=== PATIENT | male | born 1940 | race Caucasian/White ===

== ENCOUNTER → 2017-01-21 | Outpatient (REF) | payer OTHER ==
[~2017-01-21] MED LIST: ACET500T37 PO; ALDA25TA2 PO; AMLO5TAB2 PO; AVOID; DIGO0.12 PO; DIGO25TA PO; DOCU10ELUD PO; FOLI1TAB2 PO; FOLI1TAB86 PO; FURO20TA2 PO; LASI40TA PO; LISI-538 PO; LISI10TA4 PO; LOPR100T PO; LOPR1TAB6 PO; METO100T PO; METO50TA2 PO; NO HOME MEDS; OXAZ15CA PO; PERCOCET PO; Thiamine Hcl PO; VITA100T2 PO; VITMTA PO; XARE15TA PO; ZEST20TA8 PO; [UNRECOGNIZED DRUG - REMARK]; [UNRECOGNIZED DRUG - REMARK]
== END ==
LOC: M LAB REF 13:44
PROVIDERS: ATTEND Internal Medicine
DX: I48.2 Chronic atrial fibrillation (principal); I50.40 Unspecified combined systolic (congestive) and diastolic (congestive) heart failure

== ENCOUNTER 2017-05-18 12:33 | Inpatient (IN) | payer OTHER, MEDICARE ==
[~2017-05-18] VITALS: Ht 195.6 cm; Wt 102.5 kg
[~2017-05-18 12:33] MED LIST changes: +ACET-683 PO; -ACET500T37 PO; -FOLI1TAB2 PO; +FOLI1TAB4 PO; +FOLIC ACID 1 MG TAB PO SCH; -METO100T PO; +METO100T5 PO; -METO50TA2 PO; +METO50TA7 PO; +MULTIVITAMINS/MINERALS THERAP 1 TAB PO SCH; +THIAMINE 100 MG TAB PO SCH
[2017-05-18] MEDS ORDERED: NS 1,000 ML IV SCH (13:17)
[2017-05-18] MEDS ORDERED: METOPROLOL 5 MG/5 ML VIAL As Ordered ONE (13:17)
[2017-05-18] MEDS: METOPROLOL 5 MG/5 ML VIAL IV SCH ×3 (13:20→13:30)
[2017-05-18 13:38] LABS: BASO % 0.2 % (0.0-1.0); EOS # 0.1 K/mm3 (0.0-0.50); EOS % 0.7 % (0.0-3.0); LARGE UNSTAINED CELL # 0.2 K/mm3 (0.0-0.4); LARGE UNSTAINED CELL % 1.9 % (0.0-4.0); LYMPH # 0.8 K/mm3 (1.5-4.5); LYMPH % 5.6 % (24.0-44.0); MEAN CORPUSCULAR HEMOGLOBIN 33.1 pg (27.0-33.0); MEAN CORPUSCULAR HGB CONC 33.9 g/dl (32.0-36.5); MEAN CORPUSCULAR VOLUME 97.8 fl (80.0-96.0); MONO # 0.9 K/mm3 (0.0-0.8); MONO % 7.8 % (0.0-5.0); NEUTROPHILS # 9.3 K/mm3 (1.8-7.7); NEUTROPHILS % 83.8 % (36.0-66.0); PLATELET COUNT, AUTOMATED 151 k/mm3 (150-450); WHITE BLOOD COUNT 11.1 K/mm3 (4.0-10.0)
[2017-05-18 13:42] LABS: INR 1.4
[2017-05-18 13:56] LABS: ALBUMIN 3.5 GM/DL (3.2-5.2); ALBUMIN/GLOBULIN RATIO 0.81 (1.00-1.93); ALT/SGPT 34 U/L (12-78); ANION GAP 10 MEQ/L (8-16); AST/SGOT 62 U/L (15-37); BILIRUBIN,DIRECT 0.8 MG/DL (0.0-0.2); BILIRUBIN,TOTAL 2.1 MG/DL (0.2-1.0); BLOOD UREA NITROGEN 48 MG/DL (7-18); CARBON DIOXIDE LEVEL 26 MEQ/L (21-32); CHLORIDE LEVEL 109 MEQ/L (98-107); CREATININE FOR GFR 1.98 MG/DL (0.70-1.30); GLOMERULAR FILTRATION RATE 35.3 (>42); GLUCOSE, FASTING 118 MG/DL (83-110); POTASSIUM SERUM 4.2 MEQ/L (3.5-5.1); SODIUM LEVEL 145 MEQ/L (136-145); TOTAL PROTEIN 7.8 GM/DL (6.4-8.2)
[2017-05-18 14:06] LABS: METHADONE URINE NEGATIVE (NEGATIVE)
[2017-05-18 14:10] LABS: ALKALINE PHOSPHATASE 95 U/L (45-117); DIGOXIN LEVEL 0.2 NG/ML (0.5-2.0)
[2017-05-18] MEDS ORDERED: NS 1,000 ML IV ONE (14:30)
[2017-05-18] MEDS ORDERED: DIGOXIN 0.125 MG TAB PO ONE (14:45)
[2017-05-18] MEDS ORDERED: METOPROLOL TARTRATE 100 MG TAB PO ONE (14:45)
--- NOTE | 2017-05-18 14:51 | REP ---
REASON: Trauma. COMPARISON: 10/31/2016 There is no change from the prior exam. There is extensive deep white matter ischemic disease seen with deep white matter, particularly periventricular lucency, status quo. There is no evidence of an acute intracranial hemorrhagic or nonhemorrhagic event. There is no evidence of a mass or mass effect. 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 There is ventricular and sulcal dilatations status quo. There is no evidence of a small fracture. There is a fracture of the nasal arch and there is a fracture of the anterior wall of the right maxillary sinus with a right maxillary sinus air fluid level. IMPRESSION: 1. Chronic brain changes as described above, stable from 10/31/2016. 2. Facial bone fractures as described above which will be further discussed in the maxillofacial CT report obtained today as well. Signed by Terrence Cool DO 05/18/2017 04:02 P
--- NOTE | 2017-05-18 14:56 | REP ---
REASON: Trauma. PRIORS: None. The anterior wall of the right maxillary sinus is fractured. There is overlying soft tissue swelling. There is a right maxillary sinus air fluid level. There is leftward nasal septal deviation. IMPRESSION: 1. Small fracture of the anterior wall of the right maxillary sinus with an air-fluid level. This should be correlated clinically with followup. 2. Other findings consistent with chronic changes as described above. Signed by Terrence Cool DO 05/18/2017 04:02 P
--- NOTE | 2017-05-18 15:06 | REP ---
REASON: Pain in the neck after trauma. COMPARISON: None. Vertebral body height and alignment is within normal limits. There is no evidence of a cervical spine fracture. There is degenerative facet and uncovertebral joint change present at every level bilaterally. There is posterior osteophytic ridging seen C5-6 and C6-7. The facet joints are well aligned bilaterally. There is no abnormal parastomal soft tissue swelling. IMPRESSION: Chronic changes as described above. No evidence of an acute fracture. Signed by Terrence Cool DO 05/18/2017 04:02 P
--- NOTE | 2017-05-18 15:08 | REP ---
CHEST, AP LATERAL: 05/18/2017 COMPARISON: Portable chest 04/22/2016, 09/13/2015. CLINICAL HISTORY: Trauma. FINDINGS: Heart size is mildly enlarged with some left atrial and ventricular enlargement even allowing for supine technique. The aorta is mildly tortuous. Its contours are smooth and unchanged. No gross aneurysm. Airway midline. Degenerative change is seen throughout the spine. There is no dense consolidation or evidence for layering effusion, dana edema or mass. IMPRESSION: 1. Cardiomegaly with left atrial and ventricular enlargement but no pulmonary edema or definite effusion. 2. Tortuous calcified aorta without aneurysm. 3. Degenerative changes in the spine and shoulders. Signed by Kendrick Mckee MD 05/18/2017 03:57 P
--- NOTE | 2017-05-18 15:12 | REP ---
AP PELVIS: 05/18/2017 CLINICAL HISTORY: Trauma. FINDINGS. Single view of the pelvis shows pelvic ring grossly intact. SI joints symmetric and normal without erosion or narrowing. Sacral ala and foramina symmetric and normal. Iliac wings intact. Hip joint spaces show slight narrowing on the right compared to left but no large osteophytes or destructive lesion. Pubic rami, symphysis pubis and the bony hips without destructive lesion, fracture or other acute finding. There does appear to be a Gambino catheter extending into the prostatic urethra and possibly the bladder but the catheter tip is obscured by symphysis pubis. Vascular calcifications in the iliac vessels and pelvic phleboliths noted on the left. IMPRESSION: 1. No visible or displaced fracture. There are vascular calcifications of the iliac and femoral arteries as well as a left-sided phlebolith. 2. Gambino catheter is seen in the penile and prostatic urethra, its tip not visible, likely obscured by the symphysis pubis to the left of midline. Signed by Kendrick Mckee MD 05/18/2017 03:57 P
[2017-05-18] MEDS ORDERED: CEPHALEXIN 500 MG CAP PO ONE (15:15)
[2017-05-18] MEDS ORDERED: VITMTA PO (15:18)
[2017-05-18] MEDS ORDERED: VITA100T2 PO (15:18)
[2017-05-18] MEDS ORDERED: LISI40TAB PO (15:21)
[2017-05-18] MEDS ORDERED: MORPHINE 2 MG/ML 1ML SYRINGE IV PRN (16:00)
[2017-05-18] MEDS: NS 1,000 ML IV SCH (16:00)
[2017-05-18] MEDS ORDERED: ONDANSETRON 4MG/2ML VIAL (J2405) IV PRN (16:00)
[2017-05-18] MEDS ORDERED: PERCOCET 5MG/325MG TAB PO PRN (16:00)
[2017-05-18] MEDS ORDERED: BISACODYL 5 MG TAB PO PRN (16:00)
[2017-05-18] MEDS ORDERED: LORazepam 2 MG/ML VIAL (J2060) IV PRN (16:15)
[2017-05-18] MEDS ORDERED: METOPROLOL 5 MG/5 ML VIAL IV STA (16:24)
[2017-05-18] MEDS ORDERED: SODIUM CHLORIDE 0.9% 1000 ML IV ONE (16:30)
[2017-05-18] MEDS ORDERED: DIGOXIN 0.25 MG TAB PO STA (17:02)
--- NOTE | 2017-05-18 17:58 | ECGEPIP ---
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
[2017-05-18] MEDS ORDERED: MULTIVITAMIN -ADULT INJECTION 10 ML, THIAMINE INJection 100 MG, FOLIC ACID 1 MG in NS 1... IV ONE (18:00)
[2017-05-18] MEDS: CYANOCOBALAMIN 500 MCG TAB PO SCH (18:33)
[2017-05-18] MEDS: OXAZEPAM 10 MG CAP PO SCH ×2 (18:34→21:46)
[2017-05-18] MEDS: RIVAROXABAN 15 MG TAB (XARELTO) PO SCH (18:34)
[2017-05-18 18:39] VITALS: BP 143/77
--- NOTE | 2017-05-18 19:59 | HPE ---
DATE OF ADMISSION: 05/18/2017 PRIMARY CARE PROVIDER: The patient does not know who is primary care provider is. However, based on previous documentation, it is Dr. Root. CHIEF COMPLAINT: Atrial fibrillation with rapid ventricular response (RVR), Rhabdomyolysis HISTORY OF PRESENT ILLNESS: Mr. Espitia is a 76-year-old male with multiple past medical history who was transferred to the emergency room (ER) due to altered mental status. At the time of interview, the patient was not oriented to time, place or person. The patient has several bruises on his body, including his right shoulder, right chest and right lower extremity. The patient expressed that these bruises were caused by falling from the bed two days ago. The patient also has swelling of the right maxillary area as well as bruises in the right maxillary/temporal area which he expressed that this is caused by the rubber ball when he was playing with his son. The patient expressed that he feels safe at home and he denies any violence against him. The patient also expressed that he was working in his yard and he did not keep himself hydrated. The patient expressed that he drinks alcohol regularly and the last drink was last night and he had about six beers which he usually drinks everyday. The patient expressed that his cousin helps him with his medication. However, he has not taken his medication past week. The patient denies vision changes. However, the patient expressed that his left eye is weaker compared to the right however he has not been seen by [facility]. The patient denies fever, chills, or night sweats. The patient also denies lightheadedness, dizziness, syncope, or not being able to control his bowel or bladder. The patient denies sick contact, cough, shortness of breath, or dysuria. Due to altered mental status, the patient was not able to provide detailed history of present illness. PAST MEDICAL HISTORY: 1. Hypertension. 2. Atrial fibrillation. 3. Alcoholism. PAST SURGICAL HISTORY: Skin graft of the left ankle. SOCIAL HISTORY: The patient lives at home with his . The patient quit smoking 30 years ago. However, before that, the patient used to smoke about half a pack for 20 years. The patient denies illicit drug use. The patient has traveled to [place] several years ago. The patient has one dog. The patient drinks about a six-pack per day and his last drink was yesterday. FAMILY HISTORY: The patient has three children, two daughters and one son who are healthy for their age. The patient had four sisters and three brothers. One of his sisters . His older sister and older brother due to old age. The patient's parents also due to old age. The patient denies having any disease that runs in his family. HOME MEDICATIONS: - acetaminophen 1000 mg by mouth as needed for pain - digoxin 0.125 mg by mouth daily - folic acid 1 mg by mouth daily - furosemide 20 mg by mouth twice a day - lisinopril 40 mg by mouth daily - metoprolol tartrate 150 mg by mouth twice a day - multivitamin one tablet by mouth daily - Xarelto 50 mg by mouth daily - vitamin B1 100 mg by mouth daily REVIEW OF SYSTEMS: GENERAL: The patient denies fever, chills, night sweats, weight loss, weight gain. HEENT: The patient denies acute vision or hearing changes. The patient also denies headache, sinusitis, or problems with chewing food. NECK: The patient denies lumps, bumps, decreased range of motion of his neck. HEART: The patient denies palpitations, racing or skipping heart beat, chest pain. LUNGS: The patient denies shortness of breath, coughing. ABDOMEN: The patient denies abdominal pain, nausea, vomiting, diarrhea, constipations, melena, hematochezia, hemoptysis. NEUROLOGIC: The patient denies history of transient ischemic attack (TIA), seizure, or seizure-type activities. PHYSICAL EXAMINATION: VITAL SIGNS: Temperature 97.9, pulse 177, respiratory rate 20, blood pressure 143/92, pulse oximetry 93% on room air. GENERAL APPEARANCE: The patient was lying in bed, in no acute distress. The patient was awake but not oriented to time, place and person. HEENT: The patient has swelling of the right side of his face as well as bruises in the temporomaxillary area. Also, the patient has purulent discharge from his eyes bilaterally. Pupils are equal and reactive to light. Oral mucosa is moist. NECK: Soft, supple. No lymphadenopathy. No thyromegaly. HEART: Irregularly, irregular. LUNGS: The patient has scattered rhonchi at the base of the lungs. Good air movement. ABDOMEN: Soft, no tenderness to palpation. Positive bowel sounds in all quadrants. The patient has possible hepatomegaly. EXTREMITIES: The patient has mild lower extremity edema, +2 pulses in both lower extremities. The patient has decreased range of motion and strength in both lower extremities (4/5). However, at this time, I have no information about his baseline. NEUROLOGIC: Cranial nerves II-XII grossly intact. No focal deficits. No asterixis. LABORATORY DATA: White blood cells 11.1, red blood cells 5.28, hemoglobin 17.5, hematocrit 51.7, MCV 97.8, MCH 33.1, MCHC 33.9, RDW 14, platelet count 151, neutrophil percentage 83.8, lymphocyte percentage 5.6, monocyte percentage 7.8, eosinophil percentage 0.7, basophil percentage 0.2, leukocyte percentage 1.9. PT 17.3, INR 1.4, aPTT 28.7. Sodium 145, potassium 4.2, chloride 109, carbon dioxide 26, anion gap 10, BUN 48 , creatinine 1.98, glomerular filtration rate 35.3, fasting glucose 118, lactic acid 3, total bilirubin 2.1, direct bilirubin 0.8, AST 6, ALT 34, alkaline phosphatase 95, ammonia 15, total creatine kinase 948, CK-MB 4.5, CK-MB relative index 0.47, troponin I 0.07, total protein 7.8, albumin 3.5, TSH 0.973. UA: Urine color crystal, urine appearance hazy, urine pH 5, urine specific gravity 1.030, urine protein 2+, urine glucose negative, urine ketones trace, urine blood 1+, urine nitrite negative, urine bilirubin negative, urine urobilinogen 4, urine leukocyte esterase negative, urine white blood cells 2, urine red blood cells 1, urine hyaline casts 0, urine bacteria negative, urine squamous epithelial cells 0, urine mucus small. Toxicology: Digoxin level 0.2, salicylate less than 1.7, urine opiate negative, urine methadone negative, acetaminophen less than 2, urine barbiturates negative , urine phencyclidine negative, urine acetaminophen screen negative, urine benzodiazepines negative, urine cocaine metabolites negative, urine cannabinoid screen negative, ethyl alcohol 0.003. Urine culture is pending. IMAGING STUDIES: Pelvic complete indicated no visible or displaced fracture. There are vascular calcifications of the iliac and femoral arteries as well as left side phlebolith. Gambino catheter is seen in the penile and prostatic ureter, its tip not visible, likely obstructed by the symphysis pubis to the left of the midline. CT maxillofacial without contrast which indicated a small fracture of the anterior wall of the right maxillary sinus with an air-fluid level. However, other findings consistent with chronic changes. Head CT without contrast indicated chronic brain changes, facial bone fracture which was discussed in the maxillofacial CT report. Chest x-ray which indicated cardiomegaly with a left atrial and ventricle enlargement but no pulmonary edema of definite effusion. Tortuous calcified aorta without aneurysm. Degenerative changes in the spine and shoulders. CT of the cervical spine without contrast which indicated chronic changes. ASSESSMENT AND PLAN: 1. Atrial fibrillation with rapid ventricular response (RVR). this is a chronic issue however he is not compliant with his medications also could be secondary to hypovolemia due to alcoholism. At the emergency room (ER), the patient received digoxin 0.125 mg as well as metoprolol 5 mg IV every five minutes, three doses, as well as metoprolol 150 mg by mouth once. We will continue the patient on home dosage of Xarelto. Also, at this time due to the patient's low blood pressure and continuation of tachycardia, we gave another dose of digoxin 0.25 mg by mouth. We will admit the patient to the progressive care unit (PCU). We will continue to monitor the patient for any abnormal symptoms. Also, cardiac marker was negative on the first set. We will continue for two more sets every six hours. Also, EKG indicated atrial fibrillation with RVR. However, no new pathology was noticed. Tomorrow, the patient will be continued on the home medications which include Lopressor 150 mg twice a day by mouth as well as digoxin 0.125 mg by mouth daily. TSH is in normal level. Also we have ordered echo and result is pending. 2. Fracture of anterior wall of the right maxillary sinus. CT of the maxillofacial without contrast indicated a small fracture of the anterior wall of the right maxillary sinus with air-fluid level. I have contacted Dr. Quintana. Based on his CT, I did not notice any displacement fracture. Dr. Quintana expressed that the patient can be followed as an outpatient. However, at this time, I have started the patient on Keflex 500 twice a day. Also, I have collected a blood culture. However, the result is pending at this time. We will continue to monitor the patient for any abnormal symptoms. 3. Multiple skin bruises. This is possibly secondary to fall versus crawling on the carpet. The patient expressed that he feels safe at home and denies any violence toward him. We will perform wound care. 4. Possible bacterial conjunctivitis. The patient has purulent discharge from his eyes bilaterally. Therefore, I have started the patient on Neosporin Ophthalmic Solution two drops in each eye every four hours for seven days. 5. Rhabdomyolysis. This is possibly secondary to fall and stationary lifestyle. At this time, we have started the patient on IV fluid 100 mL per hour. However, the patient had received 1.5 liters of normal saline bolus. We will continue to monitor the patient for any abnormal symptoms. 6. Alcoholism. At this time, we have started the patient on Serax 10 mg by mouth three times a day as well as Ativan 1 mg every one hour as needed. Also, the patient is administered one banana bag and tomorrow the patient will be continued on thiamine and folic acid as well as B12. 7. Elevated lactic acid. This is possibly secondary to dehydration secondary to alcoholism, however, due to the possibility of infection, we have blood cultures and result is pending at this time however he is on Keflex. 8. Leukocytosis. This is possibly secondary to stress. The patient is afebrile. However, we have ordered a urinalysis (UA) which did not indicate the possibility of urinary tract infection (UTI). However, we have urine culture and the result is pending at this time. The patient is on Keflex at this time. 9. Transaminitis. The patient has elevated aspartate aminotransferase (AST) of 62. Also, the patient has elevated total bilirubin and direct bilirubin. This is possibly secondary to alcohol. I have ordered a liver ultrasound and the result is pending at this time. 10. Deep vein thrombosis (DVT) prophylaxis. The patient is on Xarelto. 11. Acute kidney injury. The patient is possibly pre-azotemia (hypovolemia) versus azotemia (medications including furosemide 20 mg by mouth twice a day, lisinopril 40 mg by mouth daily and Rhabdomyolysis). At this point , I have stopped furosemide and lisinopril. The patient is on IV fluid. We will continue monitoring the patient's renal function. My preceptor for this patient encounter was Dr. Daniel Liz. The preceptor was physically present in the building during the encounter and was fully available as needed. All aspects of the patient interview, examination, medical decision making process, and medical care plan development were reviewed and approved by the preceptor. The preceptor is aware and concurs with the plan as stated in the body of this note and will attest to such by his/her co-signature. Attending note: I have examined this patient independently and reviewed the chart and diagnostic studies. I have had a detailed discussion with the resident regarding the plan as outlined above. All aspects of the history and physical are reflective of our discussion. NIK
[2017-05-18 20:04] VITALS: BP 134/87
[2017-05-18] MEDS: NEOSPORIN OU SCH (21:43)
[2017-05-18] MEDS: METOPROLOL TART 50 MG TAB PO SCH (21:46)
[2017-05-18] MEDS: CEPHALEXIN 500 MG CAP PO SCH (21:46)
[2017-05-19] VITALS (7 sets, daily range): BP systolic 132–173; BP diastolic 64–96
[2017-05-19] MEDS: NEOSPORIN OU SCH ×6 (00:19→21:08)
[2017-05-19] MEDS: NS 1,000 ML IV SCH ×2 (02:00→06:00)
[2017-05-19 05:14] LABS: BASO % 0.2 % (0.0-1.0); EOS # 0.1 K/mm3 (0.0-0.50); EOS % 0.8 % (0.0-3.0); LARGE UNSTAINED CELL # 0.3 K/mm3 (0.0-0.4); LARGE UNSTAINED CELL % 3.1 % (0.0-4.0); LYMPH # 0.8 K/mm3 (1.5-4.5); LYMPH % 8.4 % (24.0-44.0); MEAN CORPUSCULAR HEMOGLOBIN 32.8 pg (27.0-33.0); MEAN CORPUSCULAR HGB CONC 33.2 g/dl (32.0-36.5); MONO # 0.9 K/mm3 (0.0-0.8); MONO % 9.1 % (0.0-5.0); NEUTROPHILS # 7.4 K/mm3 (1.8-7.7); NEUTROPHILS % 78.3 % (36.0-66.0); PLATELET COUNT, AUTOMATED 118 k/mm3 (150-450); RED CELL DISTRIBUTION WIDTH 13.8 % (11.5-14.5); WHITE BLOOD COUNT 9.5 K/mm3 (4.0-10.0)
[2017-05-19 05:32] LABS: ALBUMIN 2.5 GM/DL (3.2-5.2); ALBUMIN/GLOBULIN RATIO 0.69 (1.00-1.93); BILIRUBIN,TOTAL 1.4 MG/DL (0.2-1.0); CALCIUM LEVEL 8.8 MG/DL (8.8-10.2); CREATININE FOR GFR 1.59 MG/DL (0.70-1.30); GLOMERULAR FILTRATION RATE 45.4 (>42); MAGNESIUM LEVEL 2.2 MG/DL (1.8-2.4); POTASSIUM SERUM 4.2 MEQ/L (3.5-5.1); TOTAL PROTEIN 6.1 GM/DL (6.4-8.2)
[2017-05-19] MEDS: NS 0.45% 1,000 ML IV SCH ×2 (10:48→21:06)
[2017-05-19] MEDS: METOPROLOL TART 50 MG TAB PO SCH ×2 (10:49→21:07)
[2017-05-19] MEDS: RIVAROXABAN 15 MG TAB (XARELTO) PO SCH (10:49)
[2017-05-19] MEDS: OXAZEPAM 10 MG CAP PO SCH ×3 (10:49→21:00)
[2017-05-19] MEDS: DIGOXIN 0.125 MG TAB PO SCH (10:50)
[2017-05-19] MEDS: THIAMINE 100 MG TAB PO SCH (10:50)
[2017-05-19] MEDS: MULTIVITAMINS/MINERALS THERAP 1 TAB PO SCH (10:51)
[2017-05-19] MEDS: CYANOCOBALAMIN 500 MCG TAB PO SCH (10:51)
[2017-05-19] MEDS: FOLIC ACID 1 MG TAB PO SCH (10:51)
[2017-05-19] MEDS: CEPHALEXIN 500 MG CAP PO SCH ×2 (10:51→21:07)
--- NOTE | 2017-05-19 13:07 | IPNPDOC ---
Text Note Date of Service The patient was seen on 05/19/17. NOTE Subjective: Patient is a 76 year old male with a PMHx of HTN, A. fib, and alcoholism who presented to the ER with altered mental status. Patient noted that he had fallen out of bed a few days ago. He was noted to have several bruises on the right side of his face and body. Patient notes that he does not know how long he was down for. Upon arrival in the ER he was found to have KATHERINE, rhabdomyolysis, and a fracture of the right maxillary sinus with air fluid levels. Patient was seen and examined at the bedside. Currently he notes that he is still having pain on the side of his face. Objective: Vitals (See below) General: Lying in bed, no acute distress, comfortable, AAOx3 HEENT: Trauma to the right facial wall, Right eye conjunctivitis CVS: +S1S2 Lungs: Fair air entry b/l, -w/r/r Abdomen: Soft, ND, NT, +BSx4 Extremities: +PPx4, - Edema, - Calf tenderness Assessment and plan: 1. Atrial fibrillation with RVR - likely 2/2 non-compliance with medications - Patient was found down for a few days, was unable to take medications - s/p Digoxin 0.125mg and Metoprolol 5mg IV q5min x 3 doses, s/p Metoprolol 150mg PO x 1 - TSH normal - ECHO pending - c/w Metoprolol 150 PO BID, Digoxin 0.125mg QD - c/w Xarelto 3. Anterior right maxillary sinus fracture - CT Maxillofacial 05/18: acute fracture with air fluid levels - Case was discussed with ENT; no further intervention is required as per Dr. Quintana - c/w Cephalexin PO (Day #2) - Will follow up with ENT as an outpatient 4. Right eye conjunctivitis - c/w Eye drops 5. Rhabdomyolysis - Elevated CK - Trending down - c/w IV fluid hydration 6. KATHERINE on CKD3 - Cr baseline of 1.2 - Cr has been trending down - c/w IV fluid hydration 7. Alcoholism - s/p Banana bag - c/w Folate, Thiamine and Multivitamin - c/w Serax 8. Leukocytosis - likely reactive - cultures (blood and urine) pending - UA negative - resolving 9. Elevated liver enzymes; likely 2/2 rhabdomyolysis - US liver pending - will follow for now 10. DVT prophylaxis - c/w full anticoagulation for a. fib (Xarelto) VS,Fishbone, I+O VS, Fishbone, I+O Laboratory Tests 05/18/17 12:57 Red Blood Count 5.28, Mean Corpuscular Volume 97.8 H, Mean Corpuscular Hemoglobin 33.1 H, Mean Corpuscular Hemoglobin Concent 33.9, Red Cell Distribution Width 14.0, Neutrophils (%) (Auto) 83.8 H, Lymphocytes (%) (Auto) 5.6 L, Monocytes (%) (Auto) 7.8 H, Eosinophils (%) (Auto) 0.7, Basophils (%) ( Auto) 0.2, Neutrophils # (Auto) 9.3 H, Lymphocytes # (Auto) 0.8 L, Monocytes # ( Auto) 0.9 H, Eosinophils # (Auto) 0.1, Basophils # (Auto) 0.0 05/19/17 04:55 Red Blood Count 4.58, Mean Corpuscular Volume 99.0 H, Mean Corpuscular Hemoglobin 32.8, Mean Corpuscular Hemoglobin Concent 33.2, Red Cell Distribution Width 13.8, Neutrophils (%) (Auto) 78.3 H, Lymphocytes (%) (Auto) 8.4 L, Monocytes (%) (Auto) 9.1 H, Eosinophils (%) (Auto) 0.8, Basophils (%) ( Auto) 0.2, Neutrophils # (Auto) 7.4, Lymphocytes # (Auto) 0.8 L, Monocytes # ( Auto) 0.9 H, Eosinophils # (Auto) 0.1, Basophils # (Auto) 0.0, Calcium Level 8.8 , Aspartate Amino Transf (AST/SGOT) 61 H, Alanine Aminotransferase (ALT/SGPT) 39 , Alkaline Phosphatase 81, Total Bilirubin 1.4 H, Total Protein 6.1 #L, Albumin 2.5 #L Vital Signs Date Time Temp Pulse Resp B/P (MAP) Pulse Ox O2 Delivery O2 Flow Rate FiO2 05/19/17 12:00 98.3 120 20 173/96 (121) 97 Room Air I&O- Last 24 Hours up to 6 AM 05/19/17 06:00 Intake Total 3040 ml Output Total 325 ml Balance 2715 ml CARDOZO,VIJESH MD May 19, 2017 13:07
[2017-05-19 13:42] LABS: ALBUMIN 2.7 GM/DL (3.2-5.2); ALBUMIN/GLOBULIN RATIO 0.68 (1.00-1.93); BILIRUBIN,TOTAL 1.4 MG/DL (0.2-1.0); CREATININE FOR GFR 1.53 MG/DL (0.70-1.30); GLOMERULAR FILTRATION RATE 47.5 (>42); POTASSIUM SERUM 4.2 MEQ/L (3.5-5.1); TOTAL PROTEIN 6.7 GM/DL (6.4-8.2)
[2017-05-19] MEDS: amLODIPine 5 MG TAB PO SCH (14:59)
--- NOTE | 2017-05-19 18:58 | REP ---
LIVER ULTRASOUND: 05/19/2017: Clinical history: Elevated liver function tests. Alcoholism. No prior study. Findings: Sonographic evaluation of the liver shows slightly hyperechogenic with coarse echotexture suggesting fatty infiltration and chronic liver disease. No visible hepatic mass, intrahepatic biliary dilatation, cyst or adjacent ascites. The gallbladder is partially contracted. Wall thickness is 4.6 mm. Stone is within that gallbladder. I cannot see definite pericholecystic fluid. Common duct is 4.6 mm proximally and 5.5 mm and other measurement a little more distally in the simone hepatis. The pancreatic head shows no dilated duct or mass. Only a portion of the neck and head, body are seen. Tail obscured due to gas shadowing. The right kidney is 11 x 5.3 x 5.9 cm without hydronephrosis, stone or mass. Impression: 1. Chronic liver disease suggested with the hyperechogenic parenchyma suggesting fatty infiltration along with coarse echotexture and slightly lobulated margins suggesting chronic liver disease. 2. No ascites, focal hepatic mass, intrahepatic biliary dilatation or cyst. 3. Contracted gallbladder with a stone visible. Wall thickness of 4.6 mm. No pericholecystic fluid. 4. Pancreas limited evaluation due to gas shadowing. Right kidney unremarkable. The common duct 5.5 mm and normal without filling defect. Signed by Kendrick Mckee MD 05/19/2017 08:32 P
[2017-05-20] MEDS: NEOSPORIN OU SCH ×6 (02:15→20:51)
[2017-05-20 04:00] VITALS: BP 158/98
[2017-05-20 05:11] LABS: BASO # 0.1 K/mm3 (0.0-0.2); EOS # 0.2 K/mm3 (0.0-0.50); LARGE UNSTAINED CELL # 0.4 K/mm3 (0.0-0.4); LARGE UNSTAINED CELL % 4.2 % (0.0-4.0); LYMPH % 10.2 % (24.0-44.0); MEAN CORPUSCULAR HEMOGLOBIN 33.6 pg (27.0-33.0); MEAN CORPUSCULAR VOLUME 101.7 fl (80.0-96.0); MONO # 1.1 K/mm3 (0.0-0.8); MONO % 11.3 % (0.0-5.0); NEUTROPHILS # 6.8 K/mm3 (1.8-7.7); NEUTROPHILS % 71.3 % (36.0-66.0); RED CELL DISTRIBUTION WIDTH 13.7 % (11.5-14.5); WHITE BLOOD COUNT 9.6 K/mm3 (4.0-10.0)
[2017-05-20 05:13] LABS: PLATELET COUNT, AUTOMATED 91 k/mm3 (150-450)
[2017-05-20 06:15] LABS: ALBUMIN 2.5 GM/DL (3.2-5.2); ALBUMIN/GLOBULIN RATIO 0.76 (1.00-1.93); CREATININE FOR GFR 1.29 MG/DL (0.70-1.30); GLOMERULAR FILTRATION RATE 57.8 (>42); MAGNESIUM LEVEL 2.3 MG/DL (1.8-2.4); POTASSIUM SERUM 4.2 MEQ/L (3.5-5.1); TOTAL PROTEIN 5.8 GM/DL (6.4-8.2)
[2017-05-20 08:00] VITALS: BP 169/86
[2017-05-20] MEDS ORDERED: OXAZEPAM 10 MG CAP PO PRN (08:15)
[2017-05-20] MEDS: METOPROLOL TART 50 MG TAB PO SCH ×2 (08:20→20:50)
[2017-05-20] MEDS: MULTIVITAMINS/MINERALS THERAP 1 TAB PO SCH (08:21)
[2017-05-20] MEDS: CYANOCOBALAMIN 500 MCG TAB PO SCH (08:21)
[2017-05-20] MEDS: RIVAROXABAN 15 MG TAB (XARELTO) PO SCH (08:21)
[2017-05-20] MEDS: DIGOXIN 0.125 MG TAB PO SCH (08:22)
[2017-05-20] MEDS: amLODIPine 5 MG TAB PO SCH (08:22)
[2017-05-20] MEDS: CEPHALEXIN 500 MG CAP PO SCH ×2 (08:22→20:49)
[2017-05-20] MEDS: THIAMINE 100 MG TAB PO SCH (08:22)
[2017-05-20] MEDS: FOLIC ACID 1 MG TAB PO SCH (08:22)
[2017-05-20 12:00] VITALS: BP 158/60
--- NOTE | 2017-05-20 13:22 | IPNPDOC ---
Text Note Date of Service The patient was seen on 05/20/17. NOTE Subjective: Patient is a 76 year old male with a PMHx of HTN, A. fib, and alcoholism who presented to the ER with altered mental status. Patient noted that he had fallen out of bed a few days ago. He was noted to have several bruises on the right side of his face and body. Patient notes that he does not know how long he was down for. Upon arrival in the ER he was found to have KATHERINE, rhabdomyolysis, and a fracture of the right maxillary sinus with air fluid levels. Patient was seen and examined at the bedside. He notes that he is feeling a little better, does not feel as dehydrated. Notes that he will continue to try with physical therapy. Objective: Vitals (See below) General: Lying in bed, no acute distress, comfortable, AAOx3 HEENT: Trauma to the right facial wall, Right eye conjunctivitis CVS: +S1S2 Lungs: Fair air entry b/l, -w/r/r Abdomen: Soft, ND, NT, +BSx4 Extremities: +PPx4, - Edema, - Calf tenderness Assessment and plan: 1. Atrial fibrillation with RVR - likely 2/2 non-compliance with medications - Patient was found down for a few days, was unable to take medications - Denies any symptoms of palpitations or chest pain - Currently his heart rate is adequately controlled - s/p Digoxin 0.125mg and Metoprolol 5mg IV q5min x 3 doses, s/p Metoprolol 150mg PO x 1 - TSH normal - ECHO pending - c/w Digoxin 0.125mg QD; will increase Metoprolol 150 PO BID to 175 PO BID - c/w Xarelto 3. Anterior right maxillary sinus fracture - CT Maxillofacial 05/18: acute fracture with air fluid levels - s/p Leukocytosis - Case was discussed with ENT; no further intervention is required as per Dr. Quintana - c/w Cephalexin PO (Day #3) - Will follow up with ENT as an outpatient 4. Right eye conjunctivitis - c/w Eye drops 5. Rhabdomyolysis - Elevated CK has trended down and normalized - c/w IV fluid hydration 6. KATHERINE on CKD3 - Cr baseline of 1.2 - Cr has been trending down and is approaching baseline, currently at 1.29 - c/w IV fluid hydration 7. Alcoholism - s/p Banana bag - c/w Folate, Thiamine and Multivitamin - c/w Serax PRN 8. s/p Leukocytosis - likely reactive - cultures (blood and urine) pending - UA negative 9. Elevated liver enzymes; likely 2/2 rhabdomyolysis, possibly 2/2 fatty liver disease - US liver reveals fatty infiltrate - Enzymes currently trending down 10. DVT prophylaxis - c/w full anticoagulation for a. fib (Xarelto) Disposition: - Will continue with physical therapy until cleared for discharge home / placement VS,Fishbone, I+O VS, Fishbone, I+O Laboratory Tests 05/20/17 04:53 Red Blood Count 4.62, Mean Corpuscular Volume 101.7 H, Mean Corpuscular Hemoglobin 33.6 H, Mean Corpuscular Hemoglobin Concent 33.0, Red Cell Distribution Width 13.7, Neutrophils (%) (Auto) 71.3 H, Lymphocytes (%) (Auto) 10.2 L, Monocytes (%) (Auto) 11.3 H, Eosinophils (%) (Auto) 2.0, Basophils (%) ( Auto) 1.0, Neutrophils # (Auto) 6.8, Lymphocytes # (Auto) 1.0 L, Monocytes # ( Auto) 1.1 H, Eosinophils # (Auto) 0.2, Basophils # (Auto) 0.1, Calcium Level 8.0 L, Aspartate Amino Transf (AST/SGOT) 44 H, Alanine Aminotransferase (ALT/ SGPT) 34, Total Creatine Kinase 301, Alkaline Phosphatase 86, Total Bilirubin 1.0, Total Protein 5.8 L, Albumin 2.5 L Vital Signs Date Time Temp Pulse Resp B/P (MAP) Pulse Ox O2 Delivery O2 Flow Rate FiO2 05/20/17 12:00 97.0 82 18 158/60 (92) 98 Room Air I&O- Last 24 Hours up to 6 AM 05/20/17 06:00 Intake Total 4955 ml Output Total 1450 ml Balance 3505 ml TAL CARDOZO MD May 20, 2017 13:22
[2017-05-20 15:30] VITALS: BP 147/56
[2017-05-20 19:50] VITALS: BP 157/79
--- NOTE | 2017-05-20 20:10 | ECHO ---
DATE OF PROCEDURE: 05/20/2017 REFERRING PHYSICIAN: Dr. Elpidio Lee INDICATION: Atrial fibrillation. The patient measures 66 inches and weighs 222 pounds. DIMENSIONS: IVS: 1.1 LV: 4.9 LA: 5.0 Aorta: 3.7 Ascending aorta: 4.0 RV: 3.9 FINDINGS: The study is of rather limited technical quality with very difficult visualization. Left ventricle is of normal size. I cannot reliably comment on left ventricular (LV) systolic function, but there is going to be at least mild and more likely moderate LV systolic dysfunction based on limited views. Right ventricle also appears dilated and hypokinetic. Both atria are severely enlarged. Aortic valve appears mildly sclerotic but mobility is preserved. Mitral and tricuspid valves appear grossly normal based on really limited views. Pulmonic valve was not well seen. No pericardial effusion is noted. Inferior vena cava is dilated, and there is no appreciable collapse with respiration indicative of likely very high central venous pressure. Aortic root and visualized segment of ascending aorta are dilated (maximum diameter 4.0 cm). Doppler interrogation reveals no aortic stenosis or insufficiency. There is also no significant mitral stenosis and trace insufficiency. There is mild tricuspid insufficiency. Calculated pulmonary artery pressure is at least at the mid 40s and possibly higher corresponding to moderate pulmonary hypertension. Evaluation of diastolic function is inconclusive due to underlying atrial fibrillation. CONCLUSIONS: 1. Study is of limited technical quality. 2. Normal LV size with probably at least mildly and more likely moderately reduced LV systolic function based on very limited views. 3. Dilated hypokinetic right ventricle. 4. Severe biatrial enlargement. 5. No significant valvular disease. 6. Elevated central venous pressure and at least moderate pulmonary hypertension. COMMENT: Subacute bacterial endocarditis (SBE) prophylaxis is not recommended. 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
[2017-05-20] MEDS: ACETAMINOPHEN TAB 650MG DOSE (2X325MG) PO PRN (20:51)
[2017-05-20 23:59] VITALS: BP 128/77
[2017-05-21] MEDS: NEOSPORIN OU SCH ×6 (01:00→21:24)
[2017-05-21 04:00] VITALS: BP 145/81
[2017-05-21 04:58] LABS: BASO % 0.3 % (0.0-1.0); EOS # 0.2 K/mm3 (0.0-0.50); EOS % 3.1 % (0.0-3.0); LARGE UNSTAINED CELL # 0.2 K/mm3 (0.0-0.4); LARGE UNSTAINED CELL % 2.7 % (0.0-4.0); LYMPH # 0.9 K/mm3 (1.5-4.5); LYMPH % 11.1 % (24.0-44.0); MEAN CORPUSCULAR HEMOGLOBIN 32.6 pg (27.0-33.0); MEAN CORPUSCULAR HGB CONC 33.5 g/dl (32.0-36.5); MEAN CORPUSCULAR VOLUME 97.1 fl (80.0-96.0); MONO # 0.7 K/mm3 (0.0-0.8); MONO % 9.9 % (0.0-5.0); NEUTROPHILS % 72.9 % (36.0-66.0); PLATELET COUNT, AUTOMATED 132 k/mm3 (150-450); RED CELL DISTRIBUTION WIDTH 13.9 % (11.5-14.5); WHITE BLOOD COUNT 6.8 K/mm3 (4.0-10.0)
[2017-05-21 05:10] LABS: ALBUMIN 2.1 GM/DL (3.2-5.2); ALKALINE PHOSPHATASE 74 U/L (45-117); ALT/SGPT 27 U/L (12-78); ANION GAP 8 MEQ/L (8-16); AST/SGOT 34 U/L (15-37); BILIRUBIN,TOTAL 0.9 MG/DL (0.2-1.0); BLOOD UREA NITROGEN 28 MG/DL (7-18); CALCIUM LEVEL 8.1 MG/DL (8.8-10.2); CARBON DIOXIDE LEVEL 25 MEQ/L (21-32); CHLORIDE LEVEL 107 MEQ/L (98-107); CREATININE FOR GFR 1.14 MG/DL (0.70-1.30); GLOMERULAR FILTRATION RATE > 60.0 (>42); GLUCOSE, FASTING 103 MG/DL (83-110); POTASSIUM SERUM 3.5 MEQ/L (3.5-5.1); SODIUM LEVEL 140 MEQ/L (136-145); TOTAL PROTEIN 5.6 GM/DL (6.4-8.2)
[2017-05-21 07:35] VITALS: BP 152/88
[2017-05-21] MEDS: METOPROLOL TART 50 MG TAB PO SCH ×2 (08:58→21:21)
[2017-05-21] MEDS: amLODIPine 5 MG TAB PO SCH (08:58)
[2017-05-21] MEDS: RIVAROXABAN 15 MG TAB (XARELTO) PO SCH (08:58)
[2017-05-21] MEDS: THIAMINE 100 MG TAB PO SCH (08:59)
[2017-05-21] MEDS: MULTIVITAMINS/MINERALS THERAP 1 TAB PO SCH (08:59)
[2017-05-21] MEDS: CEPHALEXIN 500 MG CAP PO SCH ×2 (08:59→21:21)
[2017-05-21] MEDS: FOLIC ACID 1 MG TAB PO SCH (08:59)
[2017-05-21] MEDS: CYANOCOBALAMIN 500 MCG TAB PO SCH (08:59)
[2017-05-21] MEDS: DIGOXIN 0.125 MG TAB PO SCH (08:59)
--- NOTE | 2017-05-21 11:13 | IPNPDOC ---
Text Note Date of Service The patient was seen on 05/21/17. NOTE Subjective: Patient is a 76 year old male with a PMHx of HTN, A. fib, and alcoholism who presented to the ER with altered mental status. Patient noted that he had fallen out of bed a few days ago. He was noted to have several bruises on the right side of his face and body. Patient notes that he does not know how long he was down for. Upon arrival in the ER he was found to have KATHERINE, rhabdomyolysis, and a fracture of the right maxillary sinus with air fluid levels. Patient was seen and examined at the bedside. Patient has no new complaints this morning. Will still work with physical therapy and occupational therapy, is requiring a lot of help. Objective: Vitals (See below) General: Lying in bed, no acute distress, comfortable, AAOx3 HEENT: Trauma to the right facial wall, Right eye conjunctivitis CVS: +S1S2 Lungs: Fair air entry b/l, -w/r/r Abdomen: Soft, ND, NT, +BSx4 Extremities: +PPx4, - Edema, - Calf tenderness Assessment and plan: 1. Atrial fibrillation with RVR - likely 2/2 non-compliance with medications - Patient was found down for a few days, was unable to take medications - Denies any symptoms of palpitations or chest pain - Currently his heart rate is adequately controlled - In ER received Digoxin 0.125mg, Metoprolol 5mg IV q5min x 3 doses, Metoprolol 150mg PO x 1 - TSH normal - ECHO pending - c/w Digoxin 0.125mg QD and Metoprolol 175 PO BID - c/w Xarelto 3. Anterior right maxillary sinus fracture - CT Maxillofacial 05/18: acute fracture with air fluid levels - s/p Leukocytosis - Case was discussed with ENT; no further intervention is required as per Dr. Quintana - c/w Cephalexin PO (Day #4) - Will arrange for ENT follow up as an outpatient 4. Right eye conjunctivitis - c/w Eye drops 5. s/p Rhabdomyolysis - CK has normalized - s/p IV fluid hydration 6. s/p KATHERINE on CKD3 - likely 2/2 pre-renal etiology - Cr baseline of 1.2 - Cr has been trending down and is approaching baseline, currently at 1.14 - s/p IV fluid hydration 7. Alcoholism - s/p Banana bag - c/w Folate, Thiamine and Multivitamin - c/w Serax PRN 8. s/p Leukocytosis - likely reactive - Blood and urine cultures (05/18) negative - UA negative 9. s/p Elevated liver enzymes; likely 2/2 rhabdomyolysis, possibly 2/2 fatty liver disease - US liver reveals fatty infiltrate 10. DVT prophylaxis - c/w full anticoagulation for a. fib (Xarelto) Disposition: - Will continue with physical therapy until cleared for discharge home / placement - May require placement for continued rehab VS,Fishbone, I+O VS, Fishbone, I+O Laboratory Tests 05/21/17 04:38 Red Blood Count 3.98 L, Mean Corpuscular Volume 97.1 H, Mean Corpuscular Hemoglobin 32.6, Mean Corpuscular Hemoglobin Concent 33.5, Red Cell Distribution Width 13.9, Neutrophils (%) (Auto) 72.9 H, Lymphocytes (%) (Auto) 11.1 L, Monocytes (%) (Auto) 9.9 H, Eosinophils (%) (Auto) 3.1 H, Basophils (%) (Auto) 0.3, Neutrophils # (Auto) 5.0, Lymphocytes # (Auto) 0.9 L, Monocytes # ( Auto) 0.7, Eosinophils # (Auto) 0.2, Basophils # (Auto) 0.0, Calcium Level 8.1 L , Aspartate Amino Transf (AST/SGOT) 34, Alanine Aminotransferase (ALT/SGPT) 27, Total Creatine Kinase 158, Alkaline Phosphatase 74, Total Bilirubin 0.9, Total Protein 5.6 L, Albumin 2.1 L Vital Signs Date Time Temp Pulse Resp B/P (MAP) Pulse Ox O2 Delivery O2 Flow Rate FiO2 05/21/17 08:59 82 05/21/17 08:58 152/88 05/21/17 07:35 96.7 20 98 Room Air I&O- Last 24 Hours up to 6 AM 05/21/17 06:00 Intake Total 2240 ml Output Total 1050 ml Balance 1190 ml TAL CARDOZO MD May 21, 2017 11:13
[2017-05-21 16:00] VITALS: BP 135/84
[2017-05-21 18:30] VITALS: BP 158/92
[2017-05-21 20:27] VITALS: BP 158/87
[2017-05-22] MEDS: NEOSPORIN OU SCH ×6 (00:51→20:32)
[2017-05-22 06:00] VITALS: BP 136/93
[2017-05-22 06:39] LABS: BASO % 0.3 % (0.0-1.0); EOS # 0.2 K/mm3 (0.0-0.50); EOS % 2.5 % (0.0-3.0); LARGE UNSTAINED CELL # 0.2 K/mm3 (0.0-0.4); LARGE UNSTAINED CELL % 2.5 % (0.0-4.0); MEAN CORPUSCULAR HEMOGLOBIN 33.2 pg (27.0-33.0); MEAN CORPUSCULAR HGB CONC 34.4 g/dl (32.0-36.5); MEAN CORPUSCULAR VOLUME 96.6 fl (80.0-96.0); MONO # 0.7 K/mm3 (0.0-0.8); MONO % 10.3 % (0.0-5.0); NEUTROPHILS # 5.3 K/mm3 (1.8-7.7); NEUTROPHILS % 73.5 % (36.0-66.0); PLATELET COUNT, AUTOMATED 171 k/mm3 (150-450); WHITE BLOOD COUNT 7.2 K/mm3 (4.0-10.0)
[2017-05-22 06:56] LABS: ALBUMIN 2.4 GM/DL (3.2-5.2); ALBUMIN/GLOBULIN RATIO 0.65 (1.00-1.93); ALKALINE PHOSPHATASE 92 U/L (45-117); ALT/SGPT 38 U/L (12-78); ANION GAP 6 MEQ/L (8-16); AST/SGOT 36 U/L (15-37); BILIRUBIN,TOTAL 0.9 MG/DL (0.2-1.0); BLOOD UREA NITROGEN 18 MG/DL (7-18); CALCIUM LEVEL 8.3 MG/DL (8.8-10.2); CARBON DIOXIDE LEVEL 24 MEQ/L (21-32); CHLORIDE LEVEL 105 MEQ/L (98-107); GLOMERULAR FILTRATION RATE > 60.0 (>42); GLUCOSE, FASTING 100 MG/DL (83-110); MAGNESIUM LEVEL 2.2 MG/DL (1.8-2.4); POTASSIUM SERUM 3.9 MEQ/L (3.5-5.1); SODIUM LEVEL 135 MEQ/L (136-145); TOTAL PROTEIN 6.1 GM/DL (6.4-8.2)
[2017-05-22] MEDS: CEPHALEXIN 500 MG CAP PO SCH ×2 (08:22→20:31)
[2017-05-22] MEDS: CYANOCOBALAMIN 500 MCG TAB PO SCH (08:22)
[2017-05-22] MEDS: FOLIC ACID 1 MG TAB PO SCH (08:22)
[2017-05-22] MEDS: MULTIVITAMINS/MINERALS THERAP 1 TAB PO SCH (08:22)
[2017-05-22] MEDS: DIGOXIN 0.125 MG TAB PO SCH (08:22)
[2017-05-22] MEDS: RIVAROXABAN 15 MG TAB (XARELTO) PO SCH (08:22)
[2017-05-22] MEDS: amLODIPine 5 MG TAB PO SCH (08:22)
[2017-05-22] MEDS: THIAMINE 100 MG TAB PO SCH (08:22)
[2017-05-22] MEDS: METOPROLOL TART 50 MG TAB PO SCH ×2 (08:23→20:31)
--- NOTE | 2017-05-22 11:40 | IPNPDOC ---
Text Note Date of Service The patient was seen on 05/22/17. NOTE Subjective: Patient is a 76 year old male with a PMHx of HTN, A. fib, and alcoholism who presented to the ER with altered mental status. Patient noted that he had fallen out of bed a few days ago. He was noted to have several bruises on the right side of his face and body. Patient notes that he does not know how long he was down for. Upon arrival in the ER he was found to have KATHERINE, rhabdomyolysis, and a fracture of the right maxillary sinus with air fluid levels. Patient was seen and examined at the bedside. Patient is still having very slow progress with therapy. I have discussed with him physical therapy rehab centers as a possible option, currently still hesitant to accept. Objective: Vitals (See below) General: Lying in bed, no acute distress, comfortable, AAOx3 HEENT: Trauma to the right facial wall, Right eye conjunctivitis CVS: +S1S2 Lungs: Fair air entry b/l, -w/r/r Abdomen: Soft, ND, NT, +BSx4 Extremities: +PPx4, - Edema, - Calf tenderness Assessment and plan: 1. s/p Atrial fibrillation with RVR - likely 2/2 non-compliance with medications - Patient was found down for a few days, was unable to take medications - Denies any symptoms of palpitations or chest pain - Currently his heart rate is adequately controlled - In ER received Digoxin 0.125mg, Metoprolol 5mg IV q5min x 3 doses, Metoprolol 150mg PO x 1 - TSH normal; ECHO complete - results noted - c/w Digoxin 0.125mg QD and Metoprolol 175 PO BID - c/w Xarelto 3. Anterior right maxillary sinus fracture - CT Maxillofacial 05/18: acute fracture with air fluid levels - s/p Leukocytosis - Case was discussed with ENT; no further intervention is required as per Dr. Quintana - c/w Cephalexin PO (Day #5) - Outpatient follow up with ENT upon discharge 4. Right eye conjunctivitis - c/w Eye drops 5. s/p Rhabdomyolysis - CK has normalized - s/p IV fluid hydration 6. s/p KATHERINE on CKD3 - likely 2/2 pre-renal etiology - Cr baseline of 1.2 - Cr has been trending down and is approaching baseline, currently at 1.14 - s/p IV fluid hydration 7. Alcoholism - s/p Banana bag - c/w Folate, Thiamine and Multivitamin - c/w Serax PRN 8. s/p Leukocytosis - likely reactive - Blood and urine cultures (05/18) negative - UA negative 9. s/p Elevated liver enzymes; likely 2/2 rhabdomyolysis, possibly 2/2 fatty liver disease - US liver reveals fatty infiltrate 10. DVT prophylaxis - c/w full anticoagulation for a. fib (Xarelto) Disposition: - Will continue with therapy until cleared for discharge / possible sub-acute rehab placement VS,Fishbone, I+O VS, Fishbone, I+O Laboratory Tests 05/22/17 06:03 Calcium Level 8.3 L, Aspartate Amino Transf (AST/SGOT) 36, Alanine Aminotransferase (ALT/SGPT) 38, Total Creatine Kinase 91, Alkaline Phosphatase 92, Total Bilirubin 0.9, Total Protein 6.1 L, Albumin 2.4 L 05/22/17 06:04 Red Blood Count 4.07 L, Mean Corpuscular Volume 96.6 H, Mean Corpuscular Hemoglobin 33.2 H, Mean Corpuscular Hemoglobin Concent 34.4, Red Cell Distribution Width 14.0, Neutrophils (%) (Auto) 73.5 H, Lymphocytes (%) (Auto) 11.0 L, Monocytes (%) (Auto) 10.3 H, Eosinophils (%) (Auto) 2.5, Basophils (%) ( Auto) 0.3, Neutrophils # (Auto) 5.3, Lymphocytes # (Auto) 1.0 L, Monocytes # ( Auto) 0.7, Eosinophils # (Auto) 0.2, Basophils # (Auto) 0.0 Vital Signs Date Time Temp Pulse Resp B/P (MAP) Pulse Ox O2 Delivery O2 Flow Rate FiO2 05/22/17 10:42 Room Air 05/22/17 08:23 102 136/93 05/22/17 06:00 97.3 20 97 I&O- Last 24 Hours up to 6 AM 05/22/17 06:00 Intake Total 1680 ml Output Total 300 ml Balance 1380 ml TAL CARDOZO MD May 22, 2017 11:40
[2017-05-22 14:00] VITALS: BP 155/89
[2017-05-22 19:47] VITALS: BP 140/85
[2017-05-22] MEDS: ACETAMINOPHEN TAB 650MG DOSE (2X325MG) PO PRN (20:31)
[2017-05-23] MEDS: NEOSPORIN OU SCH ×6 (01:20→20:46)
[2017-05-23 06:00] VITALS: BP 154/88
[2017-05-23 06:22] LABS: BASO % 0.4 % (0.0-1.0); EOS # 0.2 K/mm3 (0.0-0.50); EOS % 2.6 % (0.0-3.0); LARGE UNSTAINED CELL # 0.2 K/mm3 (0.0-0.4); LARGE UNSTAINED CELL % 2.7 % (0.0-4.0); LYMPH # 0.8 K/mm3 (1.5-4.5); LYMPH % 10.8 % (24.0-44.0); MEAN CORPUSCULAR HGB CONC 33.7 g/dl (32.0-36.5); MEAN CORPUSCULAR VOLUME 97.8 fl (80.0-96.0); MONO # 0.6 K/mm3 (0.0-0.8); MONO % 8.3 % (0.0-5.0); NEUTROPHILS # 5.3 K/mm3 (1.8-7.7); NEUTROPHILS % 75.3 % (36.0-66.0); PLATELET COUNT, AUTOMATED 194 k/mm3 (150-450); RED CELL DISTRIBUTION WIDTH 13.7 % (11.5-14.5); WHITE BLOOD COUNT 7.1 K/mm3 (4.0-10.0)
[2017-05-23 06:37] LABS: ALBUMIN 2.2 GM/DL (3.2-5.2); ALBUMIN/GLOBULIN RATIO 0.61 (1.00-1.93); ALKALINE PHOSPHATASE 92 U/L (45-117); ALT/SGPT 32 U/L (12-78); ANION GAP 8 MEQ/L (8-16); AST/SGOT 31 U/L (15-37); BILIRUBIN,TOTAL 0.7 MG/DL (0.2-1.0); BLOOD UREA NITROGEN 14 MG/DL (7-18); CALCIUM LEVEL 8.3 MG/DL (8.8-10.2); CARBON DIOXIDE LEVEL 24 MEQ/L (21-32); CHLORIDE LEVEL 107 MEQ/L (98-107); GLOMERULAR FILTRATION RATE > 60.0 (>42); GLUCOSE, FASTING 115 MG/DL (83-110); MAGNESIUM LEVEL 2.1 MG/DL (1.8-2.4); POTASSIUM SERUM 3.8 MEQ/L (3.5-5.1); SODIUM LEVEL 139 MEQ/L (136-145); TOTAL PROTEIN 5.8 GM/DL (6.4-8.2)
[2017-05-23] MEDS: METOPROLOL TART 50 MG TAB PO SCH ×2 (09:09→20:46)
[2017-05-23] MEDS: THIAMINE 100 MG TAB PO SCH (09:09)
[2017-05-23] MEDS: CYANOCOBALAMIN 500 MCG TAB PO SCH (09:09)
[2017-05-23] MEDS: RIVAROXABAN 15 MG TAB (XARELTO) PO SCH (09:09)
[2017-05-23] MEDS: amLODIPine 5 MG TAB PO SCH (09:10)
[2017-05-23] MEDS: FOLIC ACID 1 MG TAB PO SCH (09:10)
[2017-05-23] MEDS: DIGOXIN 0.125 MG TAB PO SCH (09:10)
[2017-05-23] MEDS: MULTIVITAMINS/MINERALS THERAP 1 TAB PO SCH (09:10)
[2017-05-23] MEDS: CEPHALEXIN 500 MG CAP PO SCH ×2 (09:10→20:46)
--- NOTE | 2017-05-23 11:54 | IPNPDOC ---
Text Note Date of Service The patient was seen on 05/23/17. NOTE Subjective: Patient is a 76 year old male with a PMHx of HTN, A. fib, and alcoholism who presented to the ER with altered mental status. Patient noted that he had fallen out of bed a few days ago. He was noted to have several bruises on the right side of his face and body. Patient notes that he does not know how long he was down for. Upon arrival in the ER he was found to have KATHERINE, rhabdomyolysis, and a fracture of the right maxillary sinus with air fluid levels. Patient was seen and examined at the bedside. Continues to have trouble with ambulation, however has made some progress. Still requires significant assistance. Objective: Vitals (See below) General: Lying in bed, no acute distress, comfortable, AAOx3 HEENT: Trauma to the right facial wall (healing) CVS: +S1S2 Lungs: Fair air entry b/l, -w/r/r Abdomen: Soft, ND, NT, +BSx4 Extremities: +PPx4, - Edema, - Calf tenderness Assessment and plan: 1. s/p Atrial fibrillation with RVR - likely 2/2 non-compliance with medications - Patient was found down for a few days, was unable to take medications - Denies any symptoms of palpitations or chest pain - Currently his heart rate is adequately controlled - In ER received Digoxin 0.125mg, Metoprolol 5mg IV q5min x 3 doses, Metoprolol 150mg PO x 1 - TSH normal; ECHO complete - results noted - c/w Digoxin 0.125mg QD and Metoprolol 175 PO BID - c/w Xarelto 3. Anterior right maxillary sinus fracture - CT Maxillofacial 05/18: acute fracture with air fluid levels - s/p Leukocytosis - Case was discussed with ENT; no further intervention is required as per Dr. Quintana - c/w Cephalexin PO (Day #6); will discontinue on 05/24 - Outpatient follow up with ENT upon discharge 4. Right eye conjunctivitis - c/w Eye drops 5. s/p Rhabdomyolysis - CK has normalized - s/p IV fluid hydration 6. s/p KATHERINE on CKD3 - likely 2/2 pre-renal etiology - Cr baseline of 1.2 - Cr has been trending down and is approaching baseline, currently at 1.14 - s/p IV fluid hydration 7. Alcoholism - s/p Banana bag - c/w Folate, Thiamine and Multivitamin - c/w Serax PRN 8. s/p Leukocytosis - likely reactive - Blood and urine cultures (05/18) negative - UA negative 9. s/p Elevated liver enzymes; likely 2/2 rhabdomyolysis, possibly 2/2 fatty liver disease - US liver reveals fatty infiltrate 10. DVT prophylaxis - c/w full anticoagulation for a. fib (Xarelto) Disposition: - Advised patient that he needs to show some progress with physical therapy - Needs to be cleared by PT prior to discharge - Advised to strongly consider rehabilitation VS,Fishbone, I+O VS, Fishbone, I+O Laboratory Tests 05/23/17 05:59 Red Blood Count 4.07 L, Mean Corpuscular Volume 97.8 H, Mean Corpuscular Hemoglobin 33.0, Mean Corpuscular Hemoglobin Concent 33.7, Red Cell Distribution Width 13.7, Neutrophils (%) (Auto) 75.3 H, Lymphocytes (%) (Auto) 10.8 L, Monocytes (%) (Auto) 8.3 H, Eosinophils (%) (Auto) 2.6, Basophils (%) ( Auto) 0.4, Neutrophils # (Auto) 5.3, Lymphocytes # (Auto) 0.8 L, Monocytes # ( Auto) 0.6, Eosinophils # (Auto) 0.2, Basophils # (Auto) 0.0, Calcium Level 8.3 L , Aspartate Amino Transf (AST/SGOT) 31, Alanine Aminotransferase (ALT/SGPT) 32, Total Creatine Kinase 63, Alkaline Phosphatase 92, Total Bilirubin 0.7, Total Protein 5.8 L, Albumin 2.2 L Vital Signs Date Time Temp Pulse Resp B/P (MAP) Pulse Ox O2 Delivery O2 Flow Rate FiO2 05/23/17 09:10 73 134/88 05/23/17 09:00 Room Air 05/23/17 06:00 98.0 18 98 I&O- Last 24 Hours up to 6 AM 05/23/17 06:00 Intake Total 1180 ml Output Total 450 ml Balance 730 ml TAL CARDOZO MD May 23, 2017 11:54
[2017-05-23 14:00] VITALS: BP 163/93
[2017-05-23 20:43] VITALS: BP 154/67
[2017-05-23] MEDS: ACETAMINOPHEN TAB 650MG DOSE (2X325MG) PO PRN (20:47)
[2017-05-24] MEDS: NEOSPORIN OU SCH ×6 (00:24→20:25)
[2017-05-24 05:57] LABS: BASO % 0.5 % (0.0-1.0); EOS # 0.2 K/mm3 (0.0-0.50); EOS % 2.8 % (0.0-3.0); LARGE UNSTAINED CELL # 0.2 K/mm3 (0.0-0.4); LYMPH # 1.1 K/mm3 (1.5-4.5); LYMPH % 13.4 % (24.0-44.0); MEAN CORPUSCULAR HEMOGLOBIN 32.6 pg (27.0-33.0); MEAN CORPUSCULAR HGB CONC 32.9 g/dl (32.0-36.5); MONO # 0.5 K/mm3 (0.0-0.8); MONO % 8.2 % (0.0-5.0); NEUTROPHILS # 4.8 K/mm3 (1.8-7.7); NEUTROPHILS % 72.1 % (36.0-66.0); PLATELET COUNT, AUTOMATED 221 k/mm3 (150-450); RED CELL DISTRIBUTION WIDTH 13.8 % (11.5-14.5); WHITE BLOOD COUNT 6.6 K/mm3 (4.0-10.0)
[2017-05-24 06:00] VITALS: BP 138/91
[2017-05-24 06:11] LABS: ALBUMIN 2.4 GM/DL (3.2-5.2); ALBUMIN/GLOBULIN RATIO 0.56 (1.00-1.93); ALKALINE PHOSPHATASE 100 U/L (45-117); ALT/SGPT 39 U/L (12-78); ANION GAP 7 MEQ/L (8-16); AST/SGOT 33 U/L (15-37); BILIRUBIN,TOTAL 0.8 MG/DL (0.2-1.0); BLOOD UREA NITROGEN 10 MG/DL (7-18); CALCIUM LEVEL 8.6 MG/DL (8.8-10.2); CARBON DIOXIDE LEVEL 26 MEQ/L (21-32); CHLORIDE LEVEL 105 MEQ/L (98-107); CREATININE FOR GFR 1.07 MG/DL (0.70-1.30); GLOMERULAR FILTRATION RATE > 60.0 (>42); GLUCOSE, FASTING 118 MG/DL (83-110); MAGNESIUM LEVEL 2.1 MG/DL (1.8-2.4); POTASSIUM SERUM 3.9 MEQ/L (3.5-5.1); SODIUM LEVEL 138 MEQ/L (136-145); TOTAL PROTEIN 6.7 GM/DL (6.4-8.2)
[2017-05-24] MEDS: MULTIVITAMINS/MINERALS THERAP 1 TAB PO SCH (08:09)
[2017-05-24] MEDS: METOPROLOL TART 50 MG TAB PO SCH ×2 (08:10→20:24)
[2017-05-24] MEDS: THIAMINE 100 MG TAB PO SCH (08:12)
[2017-05-24] MEDS: RIVAROXABAN 15 MG TAB (XARELTO) PO SCH (08:12)
[2017-05-24] MEDS: amLODIPine 5 MG TAB PO SCH (08:12)
[2017-05-24] MEDS: CEPHALEXIN 500 MG CAP PO SCH (08:12)
[2017-05-24] MEDS: FOLIC ACID 1 MG TAB PO SCH (08:13)
[2017-05-24] MEDS: CYANOCOBALAMIN 500 MCG TAB PO SCH (08:13)
[2017-05-24] MEDS: DIGOXIN 0.125 MG TAB PO SCH (08:13)
--- NOTE | 2017-05-24 10:37 | IPNPDOC ---
Text Note Date of Service The patient was seen on 05/24/17. NOTE Subjective: Patient is a 76 year old male with a PMHx of HTN, A. fib, and alcoholism who presented to the ER with altered mental status. Patient noted that he had fallen out of bed a few days ago. He was noted to have several bruises on the right side of his face and body. Patient notes that he does not know how long he was down for. Upon arrival in the ER he was found to have KATHERINE, rhabdomyolysis, and a fracture of the right maxillary sinus with air fluid levels. Patient was seen and examined at the bedside. Has not made significant progress with physical therapy. Have advised that he should consider acute rehab on discharge. Objective: Vitals (See below) General: Lying in bed, no acute distress, comfortable, AAOx3 HEENT: Trauma to the right facial wall (healing) CVS: +S1S2 Lungs: Fair air entry b/l, -w/r/r Abdomen: Soft, ND, NT, +BSx4 Extremities: +PPx4, - Edema, - Calf tenderness Assessment and plan: 1. s/p Atrial fibrillation with RVR - likely 2/2 non-compliance with medications - Denies any symptoms of palpitations or chest pain; HR controlled - In ER received Digoxin 0.125mg, Metoprolol 5mg IV q5min x 3 doses, Metoprolol 150mg PO x 1 - TSH normal; ECHO complete - results noted - c/w Digoxin 0.125mg QD and Metoprolol 175 PO BID - c/w Xarelto 3. Anterior right maxillary sinus fracture and s/p Sinusitis - CT Maxillofacial 05/18: acute fracture with air fluid levels - s/p Leukocytosis - Case was discussed with ENT; no further intervention is required as per Dr. Quintana - s/p Cephalexin PO for 7 days - Outpatient follow up with ENT upon discharge 4. s/p Right eye conjunctivitis - c/w Eye drops 5. s/p Rhabdomyolysis - CK has normalized - s/p IV fluid hydration 6. s/p KATHERINE on CKD3 - likely 2/2 pre-renal etiology - Cr baseline of 1.2 - Cr has been trending down and is approaching baseline, currently at 1.14 - s/p IV fluid hydration 7. Alcoholism - s/p Banana bag - c/w Folate, Thiamine and Multivitamin - c/w Serax PRN 8. s/p Leukocytosis - likely reactive - Blood and urine cultures (05/18) negative - UA negative 9. s/p Elevated liver enzymes; likely 2/2 rhabdomyolysis, possibly 2/2 fatty liver disease - US liver reveals fatty infiltrate 10. DVT prophylaxis - c/w full anticoagulation for a. fib (Xarelto) Disposition: - Continue PT VS,Fishbone, I+O VS, Fishbone, I+O Laboratory Tests 05/24/17 05:43 Red Blood Count 4.28 L, Mean Corpuscular Volume 99.0 H, Mean Corpuscular Hemoglobin 32.6, Mean Corpuscular Hemoglobin Concent 32.9, Red Cell Distribution Width 13.8, Neutrophils (%) (Auto) 72.1 H, Lymphocytes (%) (Auto) 13.4 L, Monocytes (%) (Auto) 8.2 H, Eosinophils (%) (Auto) 2.8, Basophils (%) ( Auto) 0.5, Neutrophils # (Auto) 4.8, Lymphocytes # (Auto) 1.1 L, Monocytes # ( Auto) 0.5, Eosinophils # (Auto) 0.2, Basophils # (Auto) 0.0, Calcium Level 8.6 L , Aspartate Amino Transf (AST/SGOT) 33, Alanine Aminotransferase (ALT/SGPT) 39, Total Creatine Kinase 52, Alkaline Phosphatase 100, Total Bilirubin 0.8, Total Protein 6.7, Albumin 2.4 L Vital Signs Date Time Temp Pulse Resp B/P (MAP) Pulse Ox O2 Delivery O2 Flow Rate FiO2 05/24/17 08:13 83 05/24/17 06:00 97.7 18 138/91 (107) 97 Room Air 05/23/17 20:43 100.0 I&O- Last 24 Hours up to 6 AM 05/24/17 06:00 Intake Total 1480 ml Output Total 3050 ml Balance -1570 ml TAL CARDOZO MD May 24, 2017 10:37
[2017-05-24 14:00] VITALS: BP 166/80
[2017-05-24 19:57] VITALS: BP 143/75
[2017-05-24] MEDS: ACETAMINOPHEN TAB 650MG DOSE (2X325MG) PO PRN (20:25)
[2017-05-25] MEDS: NEOSPORIN OU SCH ×3 (00:28→09:41)
[2017-05-25 06:00] VITALS: BP 153/81
[2017-05-25 07:16] LABS: BASO % 0.6 % (0.0-1.0); EOS # 0.2 K/mm3 (0.0-0.50); EOS % 3.2 % (0.0-3.0); LARGE UNSTAINED CELL # 0.3 K/mm3 (0.0-0.4); LYMPH # 1.2 K/mm3 (1.5-4.5); MEAN CORPUSCULAR HEMOGLOBIN 33.1 pg (27.0-33.0); MEAN CORPUSCULAR HGB CONC 33.8 g/dl (32.0-36.5); MEAN CORPUSCULAR VOLUME 97.8 fl (80.0-96.0); MONO # 0.6 K/mm3 (0.0-0.8); MONO % 8.4 % (0.0-5.0); NEUTROPHILS # 4.9 K/mm3 (1.8-7.7); NEUTROPHILS % 70.9 % (36.0-66.0); PLATELET COUNT, AUTOMATED 267 k/mm3 (150-450); RED CELL DISTRIBUTION WIDTH 13.9 % (11.5-14.5); WHITE BLOOD COUNT 6.9 K/mm3 (4.0-10.0)
[2017-05-25 07:40] LABS: ALKALINE PHOSPHATASE 97 U/L (45-117); ALT/SGPT 36 U/L (12-78); AST/SGOT 27 U/L (15-37); BILIRUBIN,TOTAL 0.7 MG/DL (0.2-1.0); BLOOD UREA NITROGEN 11 MG/DL (7-18); CALCIUM LEVEL 8.7 MG/DL (8.8-10.2); CARBON DIOXIDE LEVEL 26 MEQ/L (21-32); CHLORIDE LEVEL 106 MEQ/L (98-107); GLUCOSE, FASTING 97 MG/DL (83-110); POTASSIUM SERUM 4.2 MEQ/L (3.5-5.1); SODIUM LEVEL 139 MEQ/L (136-145)
[2017-05-25 07:55] LABS: CREATININE FOR GFR 1.03 MG/DL (0.70-1.30); GLOMERULAR FILTRATION RATE > 60.0 (>42)
[2017-05-25] MEDS: DIGOXIN 0.125 MG TAB PO SCH (09:39)
[2017-05-25] MEDS: MULTIVITAMINS/MINERALS THERAP 1 TAB PO SCH (09:39)
[2017-05-25] MEDS: amLODIPine 5 MG TAB PO SCH (09:40)
[2017-05-25] MEDS: THIAMINE 100 MG TAB PO SCH (09:40)
[2017-05-25] MEDS: FOLIC ACID 1 MG TAB PO SCH (09:40)
[2017-05-25] MEDS: CYANOCOBALAMIN 500 MCG TAB PO SCH (09:40)
[2017-05-25] MEDS: RIVAROXABAN 15 MG TAB (XARELTO) PO SCH (09:40)
[2017-05-25] MEDS: METOPROLOL TART 50 MG TAB PO SCH ×2 (09:41→20:47)
--- NOTE | 2017-05-25 11:22 | IPNPDOC ---
Text Note Date of Service The patient was seen on 05/25/17. NOTE Subjective: Patient is a 76 year old male with a PMHx of HTN, A. fib, and alcoholism who presented to the ER with altered mental status. Patient noted that he had fallen out of bed a few days ago. He was noted to have several bruises on the right side of his face and body. Patient notes that he does not know how long he was down for. Upon arrival in the ER he was found to have KATHERINE, rhabdomyolysis, and a fracture of the right maxillary sinus with air fluid levels. Patient was seen and examined at the bedside. Continues physical therapy. Has indicated that he is willing to try subacute. Objective: Vitals (See below) General: Lying in bed, no acute distress, comfortable, AAOx3 HEENT: Trauma to the right facial wall (healing) CVS: +S1S2 Lungs: Fair air entry b/l, -w/r/r Abdomen: Soft, ND, NT, +BSx4 Extremities: +PPx4, - Edema, - Calf tenderness Assessment and plan: 1. s/p Atrial fibrillation with RVR - likely 2/2 non-compliance with medications - Denies any symptoms of palpitations or chest pain; HR controlled - In ER received Digoxin 0.125mg, Metoprolol 5mg IV q5min x 3 doses, Metoprolol 150mg PO x 1 - TSH normal; ECHO complete - results noted - c/w Digoxin 0.125mg QD and Metoprolol 175 PO BID - c/w Xarelto 3. Anterior right maxillary sinus fracture and s/p Sinusitis - CT Maxillofacial 05/18: acute fracture with air fluid levels - s/p Leukocytosis - Case was discussed with ENT; no further intervention is required as per Dr. Quintana - s/p Cephalexin PO for 7 days - Outpatient follow up with ENT upon discharge 4. s/p Right eye conjunctivitis - Will stop eye drops today 5. s/p Rhabdomyolysis - CK has normalized - s/p IV fluid hydration 6. s/p KATHERINE on CKD3 - likely 2/2 pre-renal etiology - Cr baseline of 1.2 - Cr has been trending down and is approaching baseline, currently at 1.14 - s/p IV fluid hydration 7. Alcoholism - No events of alcohol withdrawal - s/p Banana bag - Will discontinue Serax - c/w Folate, Thiamine and Multivitamin 8. s/p Leukocytosis - likely reactive - Blood and urine cultures (05/18) negative - UA negative 9. s/p Elevated liver enzymes; likely 2/2 rhabdomyolysis, possibly 2/2 fatty liver disease - US liver reveals fatty infiltrate 10. DVT prophylaxis - c/w full anticoagulation for a. fib (Xarelto) Disposition: - Continue PT; until placement to subacute rehab VS,Fishbone, I+O VS, Fishbone, I+O Laboratory Tests 05/25/17 06:56 Red Blood Count 3.91 L, Mean Corpuscular Volume 97.8 H, Mean Corpuscular Hemoglobin 33.1 H, Mean Corpuscular Hemoglobin Concent 33.8, Red Cell Distribution Width 13.9, Neutrophils (%) (Auto) 70.9 H, Lymphocytes (%) (Auto) 13.0 L, Monocytes (%) (Auto) 8.4 H, Eosinophils (%) (Auto) 3.2 H, Basophils (%) (Auto) 0.6, Neutrophils # (Auto) 4.9, Lymphocytes # (Auto) 1.2 L, Monocytes # ( Auto) 0.6, Eosinophils # (Auto) 0.2, Basophils # (Auto) 0.0, Calcium Level 8.7 L , Aspartate Amino Transf (AST/SGOT) 27, Alanine Aminotransferase (ALT/SGPT) 36, Alkaline Phosphatase 97, Total Bilirubin 0.7, Total Protein 6.0 L, Albumin 2.5 L Vital Signs Date Time Temp Pulse Resp B/P (MAP) Pulse Ox O2 Delivery O2 Flow Rate FiO2 05/25/17 09:41 79 153/81 05/25/17 06:00 97.7 20 98 05/24/17 20:10 Room Air 05/23/17 20:43 100.0 I&O- Last 24 Hours up to 6 AM 05/25/17 06:00 Intake Total 1260 ml Output Total 1950 ml Balance -690 ml TAL CARDOZO MD May 25, 2017 11:22
[2017-05-25 14:00] VITALS: BP 156/84
[2017-05-25 21:13] LABS: ALBUMIN 2.5 GM/DL (3.2-5.2); ALBUMIN/GLOBULIN RATIO 0.71 (1.00-1.93); ANION GAP 7 MEQ/L (8-16)
[2017-05-25 22:00] VITALS: BP 150/86
[2017-05-26 06:00] VITALS: BP 140/82
[2017-05-26] MEDS: MULTIVITAMINS/MINERALS THERAP 1 TAB PO SCH (09:40)
[2017-05-26] MEDS: RIVAROXABAN 15 MG TAB (XARELTO) PO SCH (09:40)
[2017-05-26] MEDS: CYANOCOBALAMIN 500 MCG TAB PO SCH (09:40)
[2017-05-26] MEDS: THIAMINE 100 MG TAB PO SCH (09:40)
[2017-05-26] MEDS: FOLIC ACID 1 MG TAB PO SCH (09:40)
[2017-05-26] MEDS: METOPROLOL TART 50 MG TAB PO SCH ×2 (09:41→20:57)
[2017-05-26] MEDS: DIGOXIN 0.125 MG TAB PO SCH (09:42)
[2017-05-26] MEDS: amLODIPine 5 MG TAB PO SCH (09:42)
--- NOTE | 2017-05-26 12:26 | IPNPDOC ---
Text Note Date of Service The patient was seen on 05/26/17. NOTE Subjective: Patient is a 76 year old male with a PMHx of HTN, A. fib, and alcoholism who presented to the ER with altered mental status. Patient noted that he had fallen out of bed a few days ago. He was noted to have several bruises on the right side of his face and body. Patient notes that he does not know how long he was down for. Upon arrival in the ER he was found to have KATHERINE, rhabdomyolysis, and a fracture of the right maxillary sinus with air fluid levels. Patient was seen and examined at the bedside. Again I have discussed with him that he will need to continue with physical therapy and that he should strongly consider physical therapy at a rehab center prior to going home. Objective: Vitals (See below) General: Lying in bed, no acute distress, comfortable, AAOx3 HEENT: Scaring to the right face CVS: +S1S2 Lungs: Fair air entry b/l, -w/r/r Abdomen: Soft, ND, NT, +BSx4 Extremities: +PPx4, - Edema, - Calf tenderness Assessment and plan: 1. s/p Atrial fibrillation with RVR - likely 2/2 non-compliance with medications - Denies any symptoms of palpitations or chest pain; HR controlled - In ER received Digoxin 0.125mg, Metoprolol 5mg IV q5min x 3 doses, Metoprolol 150mg PO x 1 - TSH normal; ECHO complete - results noted - c/w Digoxin 0.125mg QD and Metoprolol 175 PO BID - c/w Xarelto 3. Anterior right maxillary sinus fracture and s/p Sinusitis - CT Maxillofacial 05/18: acute fracture with air fluid levels - s/p Leukocytosis - Case was discussed with ENT; no further intervention is required as per Dr. Quintana - s/p Cephalexin PO for 7 days - Outpatient follow up with ENT upon discharge 4. s/p Right eye conjunctivitis - s/p eye drops 5. s/p Rhabdomyolysis - CK has normalized - s/p IV fluid hydration 6. s/p KATHERINE on CKD3 - likely 2/2 pre-renal etiology - Cr baseline of 1.2 - Cr has been trending down and normalized - s/p IV fluid hydration 7. Alcoholism - No events of alcohol withdrawal - s/p Banana bag and Serax - c/w Folate, Thiamine and Multivitamin 8. s/p Leukocytosis - likely reactive - Blood and urine cultures (05/18) negative - UA negative 9. s/p Elevated liver enzymes; likely 2/2 rhabdomyolysis, possibly 2/2 fatty liver disease - US liver reveals fatty infiltrate 10. DVT prophylaxis - c/w full anticoagulation for a. fib (Xarelto) Disposition: - Continue PT; until placement to subacute rehab VS,Fishbone, I+O VS, Fishbone, I+O Vital Signs Date Time Temp Pulse Resp B/P (MAP) Pulse Ox O2 Delivery O2 Flow Rate FiO2 05/26/17 09:42 86 05/26/17 09:41 167/89 05/26/17 09:40 Room Air 05/26/17 06:00 97.4 18 97 05/23/17 20:43 100.0 I&O- Last 24 Hours up to 6 AM 05/26/17 06:00 Intake Total 1660 ml Output Total 2525 ml Balance -865 ml TAL CARDOZO MD May 26, 2017 12:26
[2017-05-26 14:00] VITALS: BP 141/78
[2017-05-26 22:00] VITALS: BP 142/73
[2017-05-27 06:00] VITALS: BP 154/88
[2017-05-27] MEDS ORDERED: ONDANSETRON 4 MG TAB (S0181) PO PRN (06:30)
[2017-05-27] MEDS: RIVAROXABAN 15 MG TAB (XARELTO) PO SCH (08:23)
[2017-05-27] MEDS: DIGOXIN 0.125 MG TAB PO SCH (08:24)
[2017-05-27] MEDS: METOPROLOL TART 50 MG TAB PO SCH (08:24)
[2017-05-27] MEDS: FOLIC ACID 1 MG TAB PO SCH (08:25)
[2017-05-27] MEDS: MULTIVITAMINS/MINERALS THERAP 1 TAB PO SCH (08:25)
[2017-05-27] MEDS: CYANOCOBALAMIN 500 MCG TAB PO SCH (08:25)
[2017-05-27] MEDS: amLODIPine 5 MG TAB PO SCH (08:25)
[2017-05-27] MEDS: THIAMINE 100 MG TAB PO SCH (08:25)
--- NOTE | 2017-05-27 13:02 | IPN ---
DATE: 05/27/2017 Patient was admitted following a fall at home. Also noted to be in rapid AFib. Apparently in his fall he was noted to have a small fracture of the anterior wall of the right maxillary sinus. He has no sinus congestion. No facial pain. Also noted on exam today was significant bruising over the left buttock. He also has a healing laceration with eschar right face. He denies any symptoms. He is up with his walker. He states he has a walker at home. He does need continued rehabilitation. In regards to his atrial fibrillation, he has been started on Xarelto. His rate is currently controlled. He is on a rather large dose of Lopressor currently. I am going to try to reduce that. He is also on digoxin for rate control. I am increasing his Xarelto to the usual therapeutic dose. His dose was slightly reduced when started because he apparently had some issues with some mild renal failure on admission, which have resolved itself. He is an alcoholic. He has no signs or symptoms of withdrawal. His EtOH level was not elevated on this admission. He had an ultrasound examination of his liver, which showed a lobular liver as well as fatty change. Clinically, he has no evidence of decompensated cirrhosis. Ammonia levels were not elevated. His albumin is slightly depressed. It is difficult to evaluate his coagulation panel in view of his anticoagulation status. He does not have any peripheral edema. On exam, he has the right facial laceration with eschar. His cardiac was irregularly regular with a well-controlled rate. His chest is clear. Extremities are without edema. IMPRESSION/PLAN: 1. Fall at home with right maxillary sinus fracture. As discussed, asymptomatic, afebrile. He is not on any antibiotics. 2. Atrial fibrillation issues. I noticed on admission he did have significant ST depressions with his AFib and troponin was minimally elevated. I am going to recheck EKG with troponin . His anticoagulated dose increased today. 3. Acute renal injury on admission, resolved. 4. Alcoholism/liver disease. As above. 5. Deep venous thrombosis (DVT) prophylaxis. He is fully anticoagulated for his AFib.
[2017-05-27 14:00] VITALS: BP 148/77
[2017-05-27] MEDS: METOPROLOL TARTRATE 100 MG TAB PO SCH (20:45)
[2017-05-27 22:00] VITALS: BP 136/84
[2017-05-28 06:00] VITALS: BP 150/83
[2017-05-28] MEDS: amLODIPine 5 MG TAB PO SCH (09:00)
[2017-05-28] MEDS: MULTIVITAMINS/MINERALS THERAP 1 TAB PO SCH (09:00)
[2017-05-28] MEDS: THIAMINE 100 MG TAB PO SCH (09:00)
[2017-05-28] MEDS: METOPROLOL TARTRATE 100 MG TAB PO SCH ×2 (09:00→20:10)
[2017-05-28] MEDS: FOLIC ACID 1 MG TAB PO SCH (09:00)
[2017-05-28] MEDS: CYANOCOBALAMIN 500 MCG TAB PO SCH (09:00)
[2017-05-28] MEDS: DIGOXIN 0.125 MG TAB PO SCH (09:00)
--- NOTE | 2017-05-28 10:48 | IPN ---
DATE: 05/28/2017 76-year-old gentleman seen at bedside. No overnight issues reported. No headache, lightheadedness or dizziness. No chest pain, nausea, or vomiting. Tolerating meals. Bowel movements are regular. He denies any hematuria and he is voiding fine. OBJECTIVE: Temperature is 98, pulse 81, respiratory rate 18, blood pressure 150/83, SPO2 is 97% on room air. GENERAL: The patient appears to be in no acute distress. He is alert and oriented. HEENT: Unremarkable. LUNGS: Clear to auscultation. HEART: Irregular, but rate controlled. ABDOMEN: Soft. EXTREMITIES: No edema. No calf tenderness. LABORATORIES: White count 6.9, hemoglobin 12.9, platelets are 267,000. Sodium is 139, potassium 4.2, chloride 106, bicarb 26, anion gap 7, BUN is 11, creatinine 1.03, glucose 97, calcium 8.7, magnesium 2.0, total bilirubin 0.7, AST 27, ALT 36, alkaline phosphatase 97, albumin is 2.5, troponin is less than 0.02. ASSESSMENT/PLAN: 1. Atrial fibrillation, RVR better rate controlled. However, he has been noncompliant with his medications at home. TSH normal. Echo no acute findings. Continue with his digoxin 0.125 mg daily and metoprolol b.i.d. as well as Xarelto for anticoagulation. 2. Anterior right maxillary sinus fracture status post sinusitis. Case previously discussed with ENT. No further intervention required per Dr. Quintana. Continue with cephalexin for a total of 7 days. Outpatient followup after discharge. 3. Status post right eye conjunctivitis. Doing well. No current issues. 4. Rhabdomyolysis. Resolved. CK normalized. IV fluids discontinued. 5. Acute kidney injury superimposed on chronic kidney disease stage 3. Does appear to be trending at baseline. 6. Alcoholism. Continue folate, thiamine, and multivitamin. Continue to monitor for withdrawal symptoms. 7. Leukocytosis, likely reactive. Blood and urine cultures negative. UA negative. This appears to be improved. 8. Elevated liver enzymes, likely secondary to rhabdomyolysis. History of fatty liver disease. Ultrasound revealed only fatty liver disease and his LFTs have normalized. 9. Deep vein thrombosis (DVT) prophylaxis. Currently on Xarelto. DISPOSITION: Continue with physical therapy (PT) and likely placement versus subacute rehab.
--- NOTE | 2017-05-28 13:47 | ECGEPIP ---
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
[2017-05-28 14:00] VITALS: BP 136/87
[2017-05-28] MEDS: RIVAROXABAN 20 MG TAB (XARELTO) PO SCH (17:40)
[2017-05-28 20:07] VITALS: BP 143/86
[2017-05-29 06:22] VITALS: BP 162/87
[2017-05-29] MEDS: FOLIC ACID 1 MG TAB PO SCH (08:40)
[2017-05-29] MEDS: METOPROLOL TARTRATE 100 MG TAB PO SCH ×2 (08:40→20:02)
[2017-05-29] MEDS: CYANOCOBALAMIN 500 MCG TAB PO SCH (08:41)
[2017-05-29] MEDS: MULTIVITAMINS/MINERALS THERAP 1 TAB PO SCH (08:41)
[2017-05-29] MEDS: THIAMINE 100 MG TAB PO SCH (08:41)
[2017-05-29] MEDS: amLODIPine 5 MG TAB PO SCH (08:41)
[2017-05-29] MEDS: DIGOXIN 0.125 MG TAB PO SCH (08:41)
--- NOTE | 2017-05-29 12:57 | IPN ---
DATE: 05/29/2017 Patient seen and examined. No acute events overnight. Patient denies any chest pain, pressure, discomfort. Denies any shortness of breath, lightheadedness, nausea or vomiting. Tolerating oral. VITAL SIGNS: Temperature 97.7, pulse 104, respirations 17, blood pressure 162/87, pulse oximetry 99% on room air. LABORATORY DATA: WBC 6.9, hemoglobin and hematocrit 12.9 over 38.3, platelets 267. Chemistry: Sodium 139, potassium 4.2, chloride 106, bicarbonate 26, BUN 11, creatinine 1.03. PHYSICAL EXAMINATION: GENERAL: Patient appears to be in no acute distress, alert and oriented, slow to respond. HEENT: Normocephalic, atraumatic. PULMONARY: Bilaterally clear to auscultation. CARDIAC: Irregular, non-tachycardia, S1, S2. ABDOMEN: Soft, nontender. Positive bowel sounds. EXTREMITIES: No edema bilateral lower extremities. ASSESSMENT AND PLAN: This is a 76-year-old male patient with underlying medical history of hypertension, atrial fibrillation, alcoholism, was transferred to [facility] due to altered mental status, found to be in atrial fibrillation with rapid ventricular response. Problems: 1. Atrial fibrillation with rapid ventricular response, rate controlled. Telemetry observed initially. Patient noncompliant with his medication. TSH within normal limits. Echo with no acute findings. Digoxin, metoprolol, Xarelto for anticoagulation. 2. Anterior right maxillary sinus fracture, status post sinusitis. Case was discussed with Ear, Nose and Throat (ENT). No further intervention as per Dr. Quintana. Keflex 7-day course. Outpatient followup after discharge. 3. Status post right eye conjunctivitis, doing well. 4. Rhabdomyolysis. IV fluids initially given, currently discontinue, resolved. 5. Acute on chronic kidney disease. Baseline chronic kidney disease stage III, currently returning to baseline. Continue to monitor. 6. Alcoholism. Thiamine, folate, multivitamin. Continue to monitor for withdrawal. 7. Leukocytosis. Followup cultures. Likely reactive. 8. Elevated liver enzyme, possibly related to rhabdomyolysis versus alcohol. History of steatosis. Ultrasound appreciated. Continue to monitor. Outpatient followup. 9. Deep vein thrombosis (DVT) prophylaxis. Patient on Xarelto for atrial fibrillation. DISPOSITION: Pending physical therapy, potentially needs short-term rehabilitation. Patient is improving.
[2017-05-29 14:00] VITALS: BP 101/57
[2017-05-29] MEDS: RIVAROXABAN 20 MG TAB (XARELTO) PO SCH (17:17)
[2017-05-29 19:47] VITALS: BP 153/80
[2017-05-29 22:00] VITALS: BP 143/75
[2017-05-30 06:00] VITALS: BP 119/71
[2017-05-30 07:57] LABS: BASO # 0.1 K/mm3 (0.0-0.2); BASO % 0.8 % (0.0-1.0); EOS # 0.2 K/mm3 (0.0-0.50); EOS % 2.8 % (0.0-3.0); LARGE UNSTAINED CELL # 0.1 K/mm3 (0.0-0.4); LARGE UNSTAINED CELL % 1.5 % (0.0-4.0); LYMPH # 1.2 K/mm3 (1.5-4.5); LYMPH % 14.9 % (24.0-44.0); MEAN CORPUSCULAR HEMOGLOBIN 31.9 pg (27.0-33.0); MEAN CORPUSCULAR HGB CONC 33.3 g/dl (32.0-36.5); MEAN CORPUSCULAR VOLUME 95.8 fl (80.0-96.0); MONO # 0.4 K/mm3 (0.0-0.8); MONO % 5.9 % (0.0-5.0); NEUTROPHILS # 5.2 K/mm3 (1.8-7.7); NEUTROPHILS % 74.1 % (36.0-66.0); PLATELET COUNT, AUTOMATED 367 k/mm3 (150-450); RED CELL DISTRIBUTION WIDTH 13.6 % (11.5-14.5); WHITE BLOOD COUNT 7.1 K/mm3 (4.0-10.0)
[2017-05-30] MEDS: MULTIVITAMINS/MINERALS THERAP 1 TAB PO SCH (08:38)
[2017-05-30] MEDS: CYANOCOBALAMIN 500 MCG TAB PO SCH (08:38)
[2017-05-30] MEDS: amLODIPine 5 MG TAB PO SCH (08:38)
[2017-05-30] MEDS: THIAMINE 100 MG TAB PO SCH (08:38)
[2017-05-30] MEDS: FOLIC ACID 1 MG TAB PO SCH (08:38)
[2017-05-30] MEDS: METOPROLOL TARTRATE 100 MG TAB PO SCH ×2 (08:39→20:33)
[2017-05-30] MEDS: DIGOXIN 0.125 MG TAB PO SCH (08:39)
[2017-05-30 09:35] LABS: ALBUMIN 2.9 GM/DL (3.2-5.2); ALBUMIN/GLOBULIN RATIO 0.76 (1.00-1.93); ALKALINE PHOSPHATASE 119 U/L (45-117); ALT/SGPT 28 U/L (12-78); ANION GAP 7 MEQ/L (8-16); AST/SGOT 23 U/L (15-37); BILIRUBIN,TOTAL 0.8 MG/DL (0.2-1.0); BLOOD UREA NITROGEN 13 MG/DL (7-18); CALCIUM LEVEL 8.5 MG/DL (8.8-10.2); CARBON DIOXIDE LEVEL 24 MEQ/L (21-32); CHLORIDE LEVEL 107 MEQ/L (98-107); CREATININE FOR GFR 1.22 MG/DL (0.70-1.30); GLOMERULAR FILTRATION RATE > 60.0 (>42); GLUCOSE, FASTING 106 MG/DL (83-110); MAGNESIUM LEVEL 2.3 MG/DL (1.8-2.4); POTASSIUM SERUM 4.1 MEQ/L (3.5-5.1); SODIUM LEVEL 138 MEQ/L (136-145); TOTAL PROTEIN 6.7 GM/DL (6.4-8.2)
--- NOTE | 2017-05-30 12:55 | IPN ---
DATE OF SERVICE: 05/30/2017 Patient seen and examined. No acute events overnight. Patient denies any chest pain, pressure, discomfort, fevers or chills, nausea or vomiting. Tolerating oral. VITAL SIGNS: Temperature 97.3, pulse 75, respirations 18, blood pressure 190/71, pulse oximetry 99% on room air. LABORATORY DATA: WBC 7.1, hemoglobin and hematocrit 13.6 over 41, platelets 367. Chemistry: Sodium 138, potassium 4.1, chloride 107, bicarbonate 24, BUN 13, creatinine 1.22. PHYSICAL EXAMINATION: GENERAL: Patient appears to be comfortable in no acute distress, alert and oriented. HEENT: Normocephalic, atraumatic. PULMONARY: Bilaterally clear to auscultation. CARDIAC: Irregular, non-tachycardia, S1, S2. ABDOMEN: Soft, nontender. Positive bowel sounds. EXTREMITIES: No edema bilateral lower extremities. ASSESSMENT AND PLAN: This is a 76-year-old male patient with underlying medical history of hypertension, atrial fibrillation, alcoholism, was transferred to [facility] due to altered mental status, found to be in atrial fibrillation with rapid ventricular response. PROBLEMS: 1. Atrial fibrillation with rapid ventricular response, rate controlled. Telemetry initially provided. Patient noncompliant with his medication. TSH within normal limits. Echo shows no acute change. Digoxin, metoprolol, Xarelto for anticoagulation. 2. Anterior right maxillary sinus fracture, status post sinusitis. Case discussed with Ear, Nose and Throat (ENT). No further intervention as per Dr. Quintana. Keflex 7-day course. 3. Status post right eye conjunctivitis, doing well. 4. Rhabdomyolysis. Fluids initially provided, currently discontinued and resolved. 5. Acute on chronic kidney disease. Baseline chronic kidney disease (CKD) stage III, currently returning to baseline. Continue to monitor. 6. Alcoholism. Thiamine, folate, multivitamin. Monitor for withdrawal. 7. Leukocytosis. Likely reactive. Followup cultures, resolved. 8. Elevated liver enzyme, possibly related to rhabdomyolysis versus alcohol. History of steatosis. Ultrasound appreciated. Outpatient followup. 9. Deep vein thrombosis (DVT) prophylaxis. Xarelto for atrial fibrillation. DISPOSITION: Pending physical therapy will likely need short-term rehabilitation. Patient currently improved.
[2017-05-30 14:00] VITALS: BP 134/80
[2017-05-30] MEDS: RIVAROXABAN 20 MG TAB (XARELTO) PO SCH (17:00)
[2017-05-30 22:00] VITALS: BP 140/80
[2017-05-31 06:00] VITALS: BP 122/73
[2017-05-31 06:21] LABS: MEAN CORPUSCULAR HEMOGLOBIN 31.8 pg (27.0-33.0); MEAN CORPUSCULAR HGB CONC 33.1 g/dl (32.0-36.5); RED CELL DISTRIBUTION WIDTH 13.6 % (11.5-14.5); WHITE BLOOD COUNT 7.8 K/mm3 (4.0-10.0)
[2017-05-31 06:34] LABS: ANION GAP 6 MEQ/L (8-16); BLOOD UREA NITROGEN 13 MG/DL (7-18); CALCIUM LEVEL 8.9 MG/DL (8.8-10.2); CARBON DIOXIDE LEVEL 26 MEQ/L (21-32); CHLORIDE LEVEL 107 MEQ/L (98-107); CREATININE FOR GFR 1.14 MG/DL (0.70-1.30); GLOMERULAR FILTRATION RATE > 60.0 (>42); GLUCOSE, FASTING 89 MG/DL (83-110); MAGNESIUM LEVEL 2.1 MG/DL (1.8-2.4); SODIUM LEVEL 139 MEQ/L (136-145)
[2017-05-31] MEDS: CYANOCOBALAMIN 500 MCG TAB PO SCH (08:47)
[2017-05-31] MEDS: amLODIPine 5 MG TAB PO SCH (08:47)
[2017-05-31] MEDS: FOLIC ACID 1 MG TAB PO SCH (08:48)
[2017-05-31] MEDS: THIAMINE 100 MG TAB PO SCH (08:48)
[2017-05-31] MEDS: MULTIVITAMINS/MINERALS THERAP 1 TAB PO SCH (08:48)
[2017-05-31] MEDS: METOPROLOL TARTRATE 100 MG TAB PO SCH ×2 (08:48→20:48)
[2017-05-31] MEDS: DIGOXIN 0.125 MG TAB PO SCH (08:48)
--- NOTE | 2017-05-31 12:50 | IPN ---
DATE OF SERVICE: 05/31/2017 The patient seen and examined. No acute events overnight. Able to ambulate 50 feet. Denies any chest pain, pressure or discomfort, shortness of breath, fevers or chills. Tolerating a diet. VITAL SIGNS: Temperature 98.4, pulse 82, respirations 17, blood pressure 122/73, pulse oximetry 94% on room air. LABORATORY: WBC 7.8, H/H 12.8/38.6, platelets 354. Chemistries: Sodium 139, potassium 4, chloride 107, bicarbonate 28, BUN 13, creatinine 1.14. PHYSICAL EXAMINATION: The patient appears comfortable in no acute distress. Alert. HEENT: Normocephalic, atraumatic. PULMONARY: Bilateral clear to auscultation. CARDIAC: Regular. No tachycardia. S1, S2. ABDOMEN: Soft. Nontender. Positive bowel sounds. Obese. EXTREMITIES: No edema bilateral lower extremities. ASSESSMENT AND PLAN: This is a 76-year-old male patient with underlying medical history of hypertension, atrial fibrillation, alcoholism, who was transferred to [facility] due to altered mental status and found to be in atrial fibrillation with rapid ventricular response. PROBLEMS: 1. Atrial fibrillation with rapid ventricular response rate controlled. Telemetry initially provided. Noncompliant with his medications. TSH within normal limits. Echo shows no acute changes. Digoxin, metoprolol and Xarelto for anticoagulation. 2. Anterior right maxillary sinus fracture, status post sinusitis. Case discussed with Dr. Quintana, Ear, Nose and Throat (ENT). Will complete Keflex 7-day course. 3. Right eye conjunctivitis history. Doing well. 4. Rhabdomyolysis. IV fluids initially provided, currently resolved. 5. Acute on chronic kidney injury, currently at baseline. Baseline chronic kidney disease (CKD) stage III, currently at baseline. Continue to monitor. 6. Alcoholism. Thiamine, folate, multivitamin. Monitor for withdrawal. 7. Leukocytosis, likely reactive. Cultures appreciated. Currently resolved. 8. Elevated liver enzymes, possibly due to rhabdomyolysis versus alcohol. History of steatosis. Ultrasound appreciated. Outpatient followup. 9. Deep vein thrombosis (DVT) prophylaxis. Patient on Xarelto for atrial fibrillation. DISPOSITION: Pending physical therapy. Patient will need short-term rehabilitation. Currently much improved.
[2017-05-31 14:00] VITALS: BP 147/86
[2017-05-31] MEDS: RIVAROXABAN 20 MG TAB (XARELTO) PO SCH (17:03)
[2017-05-31 22:00] VITALS: BP 136/68
[2017-06-01 06:00] VITALS: BP 122/76
[2017-06-01 06:09] LABS: MEAN CORPUSCULAR HEMOGLOBIN 32.1 pg (27.0-33.0); MEAN CORPUSCULAR HGB CONC 33.8 g/dl (32.0-36.5); RED CELL DISTRIBUTION WIDTH 13.2 % (11.5-14.5); WHITE BLOOD COUNT 7.4 K/mm3 (4.0-10.0)
[2017-06-01 06:29] LABS: ANION GAP 9 MEQ/L (8-16); BLOOD UREA NITROGEN 13 MG/DL (7-18); CALCIUM LEVEL 8.7 MG/DL (8.8-10.2); CARBON DIOXIDE LEVEL 23 MEQ/L (21-32); CHLORIDE LEVEL 108 MEQ/L (98-107); CREATININE FOR GFR 1.01 MG/DL (0.70-1.30); GLOMERULAR FILTRATION RATE > 60.0 (>42); GLUCOSE, FASTING 90 MG/DL (83-110); MAGNESIUM LEVEL 2.2 MG/DL (1.8-2.4); POTASSIUM SERUM 3.7 MEQ/L (3.5-5.1); SODIUM LEVEL 140 MEQ/L (136-145)
[2017-06-01] MEDS: amLODIPine 5 MG TAB PO SCH (08:52)
[2017-06-01] MEDS: METOPROLOL TARTRATE 100 MG TAB PO SCH ×2 (08:52→20:18)
[2017-06-01] MEDS: DIGOXIN 0.125 MG TAB PO SCH (08:52)
[2017-06-01] MEDS: THIAMINE 100 MG TAB PO SCH (08:52)
[2017-06-01] MEDS: FOLIC ACID 1 MG TAB PO SCH (08:53)
[2017-06-01] MEDS: CYANOCOBALAMIN 500 MCG TAB PO SCH (08:53)
[2017-06-01] MEDS: MULTIVITAMINS/MINERALS THERAP 1 TAB PO SCH (08:53)
--- NOTE | 2017-06-01 13:24 | IPN ---
DATE OF SERVICE: Patient seen and examined. No acute events overnight. Doing well with ambulation and physical therapy. Denies any chest pain, pressure or discomfort, shortness of breath, fevers or chills. Tolerating diet. VITAL SIGNS: Temperature 98.7, pulse 80, respirations 16, blood pressure 122/76, pulse oximetry 95% on room air. LABORATORY: WBC 7.4. Hemoglobin and hematocrit 13.3/39.5. Platelets 381. Chemistries: Sodium 140, potassium 3.7, chloride 108, bicarbonate 25, BUN 13, creatinine 1.01. PHYSICAL EXAMINATION: GENERAL: Patient comfortable, in no acute distress, alert. HEENT: Normocephalic, atraumatic. PULMONARY: Bilateral clear to auscultation. CARDIAC: Irregularly irregular. No tachycardia. S1, S2. ABDOMEN: Soft. Nontender. Positive bowel sounds. Obese. EXTREMITIES: No edema bilateral lower extremities. ASSESSMENT AND PLAN: This is a 76-year-old male patient with underlying medical history of hypertension, atrial fibrillation, alcoholism, who was transferred to [facility] due to altered mental status, found to be in atrial fibrillation with rapid ventricular response. PROBLEMS: 1. Atrial fibrillation with rapid ventricular response. Rate controlled. Telemetry initially provided. Noncompliant with his medication. Thyroid function within normal limits. Echo shows no change. Digoxin, metoprolol and Xarelto for anticoagulation. 2. Anterior right maxillary sinus fracture, status post sinusitis. Case discussed with Dr. Quintana, ENT. Will complete Keflex for a 7 day course. 3. Right eye conjunctivitis history. Doing well. 4. Rhabdomyolysis. IV fluids initially provided, currently resolved. 5. Acute on chronic renal insufficiency. Currently resolved to baseline. Monitor BUN and creatinine. Baseline chronic kidney disease (CKD) stage III. 6. Alcoholism. Folic acid thiamine, multivitamin. Monitor for withdrawal. 7. Leukocytosis, likely reactive. Currently resolved. 8. Elevated liver enzymes secondary to alcohol versus rhabdomyolysis. Ultrasound appreciated. Outpatient followup. 9. Deep vein thrombosis (DVT) prophylaxis. Patient on Xarelto for atrial fibrillation. DISPOSITION: Pending physical therapy. Possible short-term rehabilitation. Currently improved.
[2017-06-01 14:00] VITALS: BP 124/66
[2017-06-01] MEDS: RIVAROXABAN 20 MG TAB (XARELTO) PO SCH (16:46)
[2017-06-01 20:15] VITALS: BP 121/65
[2017-06-01 22:00] VITALS: BP 121/65
[2017-06-02 06:00] VITALS: BP 117/56
[2017-06-02 07:10] LABS: MEAN CORPUSCULAR HEMOGLOBIN 32.2 pg (27.0-33.0); MEAN CORPUSCULAR HGB CONC 33.4 g/dl (32.0-36.5); MEAN CORPUSCULAR VOLUME 96.3 fl (80.0-96.0); RED CELL DISTRIBUTION WIDTH 13.2 % (11.5-14.5); WHITE BLOOD COUNT 6.8 K/mm3 (4.0-10.0)
[2017-06-02 07:27] LABS: ANION GAP 6 MEQ/L (8-16); BLOOD UREA NITROGEN 12 MG/DL (7-18); CALCIUM LEVEL 9.1 MG/DL (8.8-10.2); CARBON DIOXIDE LEVEL 27 MEQ/L (21-32); CHLORIDE LEVEL 107 MEQ/L (98-107); CREATININE FOR GFR 1.15 MG/DL (0.70-1.30); GLOMERULAR FILTRATION RATE > 60.0 (>42); GLUCOSE, FASTING 89 MG/DL (83-110); MAGNESIUM LEVEL 2.2 MG/DL (1.8-2.4); POTASSIUM SERUM 4.3 MEQ/L (3.5-5.1); SODIUM LEVEL 140 MEQ/L (136-145)
[2017-06-02 10:00] VITALS: BP 130/90
[2017-06-02] MEDS: MULTIVITAMINS/MINERALS THERAP 1 TAB PO SCH (10:22)
[2017-06-02] MEDS: FOLIC ACID 1 MG TAB PO SCH (10:22)
[2017-06-02] MEDS: DIGOXIN 0.125 MG TAB PO SCH (10:22)
[2017-06-02] MEDS: THIAMINE 100 MG TAB PO SCH (10:23)
[2017-06-02] MEDS: amLODIPine 5 MG TAB PO SCH (10:23)
[2017-06-02] MEDS: METOPROLOL TARTRATE 100 MG TAB PO SCH ×2 (10:23→20:56)
[2017-06-02] MEDS: CYANOCOBALAMIN 500 MCG TAB PO SCH (10:23)
[2017-06-02 14:00] VITALS: BP 118/56
[2017-06-02] MEDS: RIVAROXABAN 20 MG TAB (XARELTO) PO SCH (17:20)
--- NOTE | 2017-06-02 18:31 | IPN ---
DATE: 06/02/2017 Patient is seen and examined. No acute events overnight. Able to ambulate. Participating with physical therapy with major improvement. Denies any fever, chills, chest pain, pressure or discomfort. Denies any shortness of breath. VITAL SIGNS: Temperature 97.6, pulse 75, respirations 15, blood pressure 118/56, pulse oximetry 99% on room air. LABORATORY DATA: WBC 6.8, hemoglobin and hematocrit 13.7/41.1, platelets 381. Chemistry: Sodium 140, potassium 4.3, chloride 107, bicarbonate 27, BUN 12, creatinine 1.15. PHYSICAL EXAMINATION: GENERAL: Patient comfortable, in no acute distress. HEENT: Normocephalic, atraumatic. PULMONARY: Bilaterally clear to auscultation. CARDIAC: Irregularly irregular, non-tachycardia, S1, S2. ABDOMEN: Soft, nontender. Positive bowel sounds. Obese. EXTREMITIES: No edema bilateral lower extremities. ASSESSMENT AND PLAN: This is a 76-year-old male patient with underlying medical history of hypertension, atrial fibrillation, and alcoholism who was transferred to [facility] due to altered mental status, found to have atrial fibrillation with rapid ventricular response. 1. Atrial fibrillation with rapid ventricular response. Rate controlled. Telemetry initially provided. Patient noncompliant with medication. Thyroid function within normal limits. Echo shows no change. Digoxin, metoprolol, Xarelto for anticoagulation. 2. Anterior right maxillary sinus fracture, status post sinusitis. Case discussed with ENT, Dr. Quintana. Will complete a 7 day course of Keflex. 3. Right eye conjunctivitis history. Doing well. 4. Rhabdomyolysis. IV fluids initially provided, currently resolved. 5. Acute on chronic renal insufficiency. Currently at baseline. BUN and creatinine appreciated. Baseline chronic kidney disease (CKD) stage III. 6. Alcoholism. Folic acid, thiamine, and multivitamin. Monitor for withdrawal. 7. Leukocytosis, currently resolved. 8. Elevated liver enzymes due to alcohol versus rhabdomyolysis. Ultrasound appreciated. Outpatient followup. 9. Deep vein thrombosis (DVT) prophylaxis. Patient on Xarelto for atrial fibrillation. DISPOSITION: Pending physical therapy. Patient refused short-term rehabilitation. Patient and family services (PFS) has been consulted.
[2017-06-02 20:40] VITALS: BP 155/74
[2017-06-03 06:00] VITALS: BP 107/68
[2017-06-03 06:54] LABS: MEAN CORPUSCULAR HEMOGLOBIN 32.2 pg (27.0-33.0); MEAN CORPUSCULAR HGB CONC 33.8 g/dl (32.0-36.5); MEAN CORPUSCULAR VOLUME 95.2 fl (80.0-96.0); RED CELL DISTRIBUTION WIDTH 13.7 % (11.5-14.5); WHITE BLOOD COUNT 6.6 K/mm3 (4.0-10.0)
[2017-06-03 06:56] LABS: ANION GAP 6 MEQ/L (8-16); BLOOD UREA NITROGEN 14 MG/DL (7-18); CALCIUM LEVEL 8.9 MG/DL (8.8-10.2); CARBON DIOXIDE LEVEL 26 MEQ/L (21-32); CHLORIDE LEVEL 107 MEQ/L (98-107); CREATININE FOR GFR 1.16 MG/DL (0.70-1.30); GLOMERULAR FILTRATION RATE > 60.0 (>42); GLUCOSE, FASTING 84 MG/DL (83-110); MAGNESIUM LEVEL 2.2 MG/DL (1.8-2.4); POTASSIUM SERUM 4.1 MEQ/L (3.5-5.1); SODIUM LEVEL 139 MEQ/L (136-145)
[2017-06-03] MEDS: MULTIVITAMINS/MINERALS THERAP 1 TAB PO SCH (10:15)
[2017-06-03] MEDS: THIAMINE 100 MG TAB PO SCH (10:15)
[2017-06-03] MEDS: CYANOCOBALAMIN 500 MCG TAB PO SCH (10:15)
[2017-06-03] MEDS: amLODIPine 5 MG TAB PO SCH (10:16)
[2017-06-03] MEDS: METOPROLOL TARTRATE 100 MG TAB PO SCH ×2 (10:16→20:03)
[2017-06-03] MEDS: FOLIC ACID 1 MG TAB PO SCH (10:16)
[2017-06-03] MEDS: DIGOXIN 0.125 MG TAB PO SCH (10:16)
[2017-06-03 14:00] VITALS: BP 136/85
--- NOTE | 2017-06-03 14:45 | IPN ---
DATE: 06/03/2017 Patient is seen and examined. Reported feeling exhausted after physical therapy (PT). Denies any chest pain, pressure or discomfort. No acute events overnight. Denies any fevers or chills. VITAL SIGNS: Temperature 97.7, pulse 86, respirations 18, blood pressure 129/76, pulse oximetry 97% on room air. LABORATORY DATA: WBC 6.6, hemoglobin and hematocrit 12.7/37.5, platelets 361. Chemistry: Sodium 139, potassium 4.1, chloride 107, bicarbonate 26, BUN 14, creatinine 1.16. PHYSICAL EXAMINATION: GENERAL: Patient comfortable, in no acute distress. HEENT: Normocephalic, atraumatic. PULMONARY: Bilaterally clear to auscultation. CARDIAC: Irregularly irregular, non-tachycardia, S1, S2. ABDOMEN: Soft, nontender. Positive bowel sounds. Obese. EXTREMITIES: No edema bilateral lower extremities. ASSESSMENT AND PLAN: This is a 76-year-old male patient with underlying medical history of atrial fibrillation and alcoholism who was transferred to [facility] due to altered mental status, found to have atrial fibrillation with rapid ventricular response. 1. Atrial fibrillation with rapid ventricular response. Rate controlled. Telemetry initially provided. Patient noncompliant with medication. Thyroid function within normal limits. Echo shows no change. Digoxin, metoprolol, Xarelto for anticoagulation. 2. Anterior right maxillary sinus fracture, status post sinusitis. Case discussed with ENT, Dr. Quintana. Completed 7 days of Keflex. 3. Right eye conjunctivitis history, resolved. 4. Rhabdomyolysis. IV fluids initially provided, currently resolved. 5. Acute on chronic renal insufficiency. Currently at baseline. BUN and creatinine appreciated. Baseline chronic kidney disease (CKD) stage III. 6. Alcoholism. Folic acid, thiamine, and multivitamin. Monitor for withdrawal. 7. Leukocytosis, resolved. 8. Elevated liver functions secondary to alcohol versus rhabdomyolysis. Ultrasound appreciated. Outpatient followup. 9. Deep vein thrombosis (DVT) prophylaxis. Patient on Xarelto for atrial fibrillation. DISPOSITION: Pending physical therapy. Refused short-term rehabilitation. Patient and family services (PFS) has been consulted.
[2017-06-03] MEDS: RIVAROXABAN 20 MG TAB (XARELTO) PO SCH (18:15)
[2017-06-03 19:43] VITALS: BP 136/68
[2017-06-04 06:00] VITALS: BP 136/83
[2017-06-04 07:08] LABS: MEAN CORPUSCULAR HEMOGLOBIN 32.1 pg (27.0-33.0); MEAN CORPUSCULAR HGB CONC 33.6 g/dl (32.0-36.5); MEAN CORPUSCULAR VOLUME 95.5 fl (80.0-96.0); RED CELL DISTRIBUTION WIDTH 13.1 % (11.5-14.5); WHITE BLOOD COUNT 6.9 K/mm3 (4.0-10.0)
[2017-06-04 07:26] LABS: ANION GAP 6 MEQ/L (8-16); BLOOD UREA NITROGEN 13 MG/DL (7-18); CALCIUM LEVEL 9.1 MG/DL (8.8-10.2); CARBON DIOXIDE LEVEL 26 MEQ/L (21-32); CHLORIDE LEVEL 107 MEQ/L (98-107); CREATININE FOR GFR 1.16 MG/DL (0.70-1.30); GLOMERULAR FILTRATION RATE > 60.0 (>42); GLUCOSE, FASTING 97 MG/DL (83-110); MAGNESIUM LEVEL 2.2 MG/DL (1.8-2.4); POTASSIUM SERUM 4.2 MEQ/L (3.5-5.1); SODIUM LEVEL 139 MEQ/L (136-145)
[2017-06-04] MEDS: THIAMINE 100 MG TAB PO SCH (08:57)
[2017-06-04] MEDS: DIGOXIN 0.125 MG TAB PO SCH (08:57)
[2017-06-04] MEDS: amLODIPine 5 MG TAB PO SCH (08:58)
[2017-06-04] MEDS: METOPROLOL TARTRATE 100 MG TAB PO SCH ×2 (08:58→20:45)
[2017-06-04] MEDS: FOLIC ACID 1 MG TAB PO SCH (08:58)
[2017-06-04] MEDS: CYANOCOBALAMIN 500 MCG TAB PO SCH (08:58)
[2017-06-04] MEDS: MULTIVITAMINS/MINERALS THERAP 1 TAB PO SCH (08:58)
[2017-06-04 14:00] VITALS: BP 146/72
--- NOTE | 2017-06-04 15:38 | IPN ---
DATE: 06/04/2017 Patient is seen and examined. No acute events overnight. Denies any fevers, chills, chest pain, pressure or discomfort. Comfortable. Reported tired after physical therapy. VITAL SIGNS: Temperature 98.5, pulse 80, respirations 18, blood pressure 146/72, pulse oximetry 99% on room air. LABORATORY DATA: WBC 6.9, hemoglobin and hematocrit 14/43.9, platelets 364. Chemistry: Sodium 139, potassium 4.2, chloride 107, bicarbonate 26, BUN 13, creatinine 1.16. PHYSICAL EXAMINATION: GENERAL: Patient is alert, comfortable, in no acute distress. HEENT: Normocephalic, atraumatic. PULMONARY: Bilaterally clear to auscultation. CARDIAC: Irregularly irregular, non-tachycardia, S1, S2. ABDOMEN: Soft, nontender. Positive bowel sounds. Obese. EXTREMITIES: No edema bilateral lower extremities. ASSESSMENT AND PLAN: This is a 76-year-old male patient with underlying medical history of atrial fibrillation and alcoholism who was transferred to [facility] due to altered mental status, found to have atrial fibrillation with rapid ventricular response. 1. Atrial fibrillation with rapid ventricular response. Rate controlled. Telemetry initially provided. Patient noncompliant with medication. Thyroid function within normal limits. Echo shows no change. Digoxin, metoprolol, Xarelto for anticoagulation. 2. Anterior right maxillary sinus fracture, status post sinusitis. Case discussed with ENT, Dr. Quintana. Completed 7 days of Keflex. 3. Right eye conjunctivitis history, resolved. 4. Rhabdomyolysis. IV fluids initially provided, currently resolved. 5. Acute on chronic renal insufficiency. Currently at baseline. BUN and creatinine appreciated. Baseline chronic kidney disease (CKD) stage III. 6. Alcoholism. Folic acid, thiamine, and multivitamin. Monitor for withdrawal. 7. Leukocytosis, resolved. 8. Elevated liver functions secondary to alcohol versus rhabdomyolysis. Ultrasound appreciated. Needs outpatient followup. 9. Deep vein thrombosis (DVT) prophylaxis. On Xarelto for atrial fibrillation. DISPOSITION: Pending physical therapy. Refused short-term rehabilitation. Patient and family services (PFS) has been consulted.
[2017-06-04] MEDS: RIVAROXABAN 20 MG TAB (XARELTO) PO SCH (17:28)
[2017-06-04 22:00] VITALS: BP 127/64
[2017-06-05 06:00] VITALS: BP 125/70
[2017-06-05 06:06] LABS: MEAN CORPUSCULAR HEMOGLOBIN 32.2 pg (27.0-33.0); MEAN CORPUSCULAR VOLUME 94.8 fl (80.0-96.0); RED CELL DISTRIBUTION WIDTH 13.6 % (11.5-14.5); WHITE BLOOD COUNT 6.2 K/mm3 (4.0-10.0)
[2017-06-05 06:19] LABS: ANION GAP 7 MEQ/L (8-16); BLOOD UREA NITROGEN 15 MG/DL (7-18); CALCIUM LEVEL 8.7 MG/DL (8.8-10.2); CARBON DIOXIDE LEVEL 22 MEQ/L (21-32); CHLORIDE LEVEL 107 MEQ/L (98-107); CREATININE FOR GFR 1.09 MG/DL (0.70-1.30); GLOMERULAR FILTRATION RATE > 60.0 (>42); GLUCOSE, FASTING 90 MG/DL (83-110); MAGNESIUM LEVEL 2.1 MG/DL (1.8-2.4); POTASSIUM SERUM 3.8 MEQ/L (3.5-5.1); SODIUM LEVEL 136 MEQ/L (136-145)
[2017-06-05] MEDS: FOLIC ACID 1 MG TAB PO SCH (09:25)
[2017-06-05] MEDS: THIAMINE 100 MG TAB PO SCH (09:25)
[2017-06-05] MEDS: MULTIVITAMINS/MINERALS THERAP 1 TAB PO SCH (09:25)
[2017-06-05] MEDS: CYANOCOBALAMIN 500 MCG TAB PO SCH (09:25)
[2017-06-05] MEDS: METOPROLOL TARTRATE 100 MG TAB PO SCH ×2 (09:26→21:00)
[2017-06-05] MEDS: amLODIPine 5 MG TAB PO SCH (09:26)
[2017-06-05] MEDS: DIGOXIN 0.125 MG TAB PO SCH (09:26)
[2017-06-05] MEDS: RIVAROXABAN 20 MG TAB (XARELTO) PO SCH (18:26)
[2017-06-06 06:00] VITALS: BP 121/68
[2017-06-06 06:17] LABS: MEAN CORPUSCULAR HEMOGLOBIN 31.3 pg (27.0-33.0); MEAN CORPUSCULAR VOLUME 94.8 fl (80.0-96.0); RED CELL DISTRIBUTION WIDTH 13.5 % (11.5-14.5); WHITE BLOOD COUNT 6.8 K/mm3 (4.0-10.0)
[2017-06-06 06:43] LABS: ANION GAP 8 MEQ/L (8-16); BLOOD UREA NITROGEN 12 MG/DL (7-18); CALCIUM LEVEL 8.9 MG/DL (8.8-10.2); CARBON DIOXIDE LEVEL 25 MEQ/L (21-32); CHLORIDE LEVEL 109 MEQ/L (98-107); CREATININE FOR GFR 1.08 MG/DL (0.70-1.30); GLOMERULAR FILTRATION RATE > 60.0 (>42); GLUCOSE, FASTING 91 MG/DL (83-110); POTASSIUM SERUM 4.2 MEQ/L (3.5-5.1); SODIUM LEVEL 142 MEQ/L (136-145)
[2017-06-06] MEDS: amLODIPine 5 MG TAB PO SCH (09:55)
[2017-06-06] MEDS: CYANOCOBALAMIN 500 MCG TAB PO SCH (09:55)
[2017-06-06] MEDS: DIGOXIN 0.125 MG TAB PO SCH (09:55)
[2017-06-06] MEDS: THIAMINE 100 MG TAB PO SCH (09:55)
[2017-06-06] MEDS: METOPROLOL TARTRATE 100 MG TAB PO SCH ×2 (09:55→21:00)
[2017-06-06] MEDS: FOLIC ACID 1 MG TAB PO SCH (09:55)
[2017-06-06] MEDS: MULTIVITAMINS/MINERALS THERAP 1 TAB PO SCH (09:56)
[2017-06-06] MEDS: RIVAROXABAN 20 MG TAB (XARELTO) PO SCH (17:52)
[2017-06-07 06:00] VITALS: BP 110/71
[2017-06-07 06:07] LABS: MEAN CORPUSCULAR HEMOGLOBIN 31.9 pg (27.0-33.0); MEAN CORPUSCULAR HGB CONC 33.3 g/dl (32.0-36.5); MEAN CORPUSCULAR VOLUME 95.8 fl (80.0-96.0); RED CELL DISTRIBUTION WIDTH 13.5 % (11.5-14.5); WHITE BLOOD COUNT 6.6 K/mm3 (4.0-10.0)
[2017-06-07 06:13] LABS: ANION GAP 6 MEQ/L (8-16); BLOOD UREA NITROGEN 13 MG/DL (7-18); CALCIUM LEVEL 8.8 MG/DL (8.8-10.2); CARBON DIOXIDE LEVEL 26 MEQ/L (21-32); CHLORIDE LEVEL 106 MEQ/L (98-107); CREATININE FOR GFR 1.19 MG/DL (0.70-1.30); GLOMERULAR FILTRATION RATE > 60.0 (>42); GLUCOSE, FASTING 92 MG/DL (83-110); MAGNESIUM LEVEL 2.1 MG/DL (1.8-2.4); POTASSIUM SERUM 3.9 MEQ/L (3.5-5.1); SODIUM LEVEL 138 MEQ/L (136-145)
[2017-06-07] MEDS: CYANOCOBALAMIN 500 MCG TAB PO SCH (09:24)
[2017-06-07] MEDS: THIAMINE 100 MG TAB PO SCH (09:24)
[2017-06-07] MEDS: MULTIVITAMINS/MINERALS THERAP 1 TAB PO SCH (09:24)
[2017-06-07] MEDS: FOLIC ACID 1 MG TAB PO SCH (09:24)
[2017-06-07] MEDS: METOPROLOL TARTRATE 100 MG TAB PO SCH ×2 (09:25→20:28)
[2017-06-07] MEDS: DIGOXIN 0.125 MG TAB PO SCH (09:25)
[2017-06-07] MEDS: amLODIPine 5 MG TAB PO SCH (09:30)
[2017-06-07] MEDS: RIVAROXABAN 20 MG TAB (XARELTO) PO SCH (17:45)
[2017-06-08 06:00] VITALS: BP 148/84
[2017-06-08 07:29] LABS: MEAN CORPUSCULAR HEMOGLOBIN 31.7 pg (27.0-33.0); MEAN CORPUSCULAR HGB CONC 32.8 g/dl (32.0-36.5); MEAN CORPUSCULAR VOLUME 96.5 fl (80.0-96.0); RED CELL DISTRIBUTION WIDTH 13.5 % (11.5-14.5); WHITE BLOOD COUNT 6.8 K/mm3 (4.0-10.0)
[2017-06-08 07:42] LABS: ANION GAP 5 MEQ/L (8-16); BLOOD UREA NITROGEN 12 MG/DL (7-18); CALCIUM LEVEL 8.8 MG/DL (8.8-10.2); CARBON DIOXIDE LEVEL 27 MEQ/L (21-32); CHLORIDE LEVEL 106 MEQ/L (98-107); GLOMERULAR FILTRATION RATE > 60.0 (>42); GLUCOSE, FASTING 91 MG/DL (83-110); MAGNESIUM LEVEL 2.2 MG/DL (1.8-2.4); POTASSIUM SERUM 4.3 MEQ/L (3.5-5.1); SODIUM LEVEL 138 MEQ/L (136-145)
[2017-06-08] MEDS: DIGOXIN 0.125 MG TAB PO SCH (09:28)
[2017-06-08] MEDS: THIAMINE 100 MG TAB PO SCH (09:28)
[2017-06-08] MEDS: FOLIC ACID 1 MG TAB PO SCH (09:28)
[2017-06-08] MEDS: CYANOCOBALAMIN 500 MCG TAB PO SCH (09:28)
[2017-06-08] MEDS: MULTIVITAMINS/MINERALS THERAP 1 TAB PO SCH (09:29)
[2017-06-08] MEDS: METOPROLOL TARTRATE 100 MG TAB PO SCH ×2 (09:29→20:07)
[2017-06-08] MEDS: amLODIPine 5 MG TAB PO SCH (09:30)
[2017-06-08] MEDS: RIVAROXABAN 20 MG TAB (XARELTO) PO SCH (17:28)
[2017-06-09 06:00] VITALS: BP 123/78
[2017-06-09 06:26] LABS: MEAN CORPUSCULAR HEMOGLOBIN 32.5 pg (27.0-33.0); MEAN CORPUSCULAR HGB CONC 33.6 g/dl (32.0-36.5); MEAN CORPUSCULAR VOLUME 96.7 fl (80.0-96.0); RED CELL DISTRIBUTION WIDTH 13.5 % (11.5-14.5); WHITE BLOOD COUNT 6.3 K/mm3 (4.0-10.0)
[2017-06-09 06:38] LABS: ANION GAP 5 MEQ/L (8-16); BLOOD UREA NITROGEN 14 MG/DL (7-18); CALCIUM LEVEL 8.8 MG/DL (8.8-10.2); CARBON DIOXIDE LEVEL 26 MEQ/L (21-32); CHLORIDE LEVEL 108 MEQ/L (98-107); CREATININE FOR GFR 1.15 MG/DL (0.70-1.30); GLOMERULAR FILTRATION RATE > 60.0 (>42); GLUCOSE, FASTING 94 MG/DL (83-110); POTASSIUM SERUM 4.2 MEQ/L (3.5-5.1); SODIUM LEVEL 139 MEQ/L (136-145)
[2017-06-09] MEDS: THIAMINE 100 MG TAB PO SCH (08:22)
[2017-06-09] MEDS: CYANOCOBALAMIN 500 MCG TAB PO SCH (08:22)
[2017-06-09] MEDS: FOLIC ACID 1 MG TAB PO SCH (08:22)
[2017-06-09] MEDS: MULTIVITAMINS/MINERALS THERAP 1 TAB PO SCH (08:22)
[2017-06-09] MEDS: amLODIPine 5 MG TAB PO SCH (08:23)
[2017-06-09] MEDS: METOPROLOL TARTRATE 100 MG TAB PO SCH ×2 (08:23→20:15)
[2017-06-09] MEDS: DIGOXIN 0.125 MG TAB PO SCH (08:23)
[2017-06-09] MEDS: RIVAROXABAN 20 MG TAB (XARELTO) PO SCH (17:55)
[2017-06-10 06:00] VITALS: BP 140/88
[2017-06-10 07:22] LABS: MEAN CORPUSCULAR HEMOGLOBIN 31.6 pg (27.0-33.0); MEAN CORPUSCULAR HGB CONC 33.3 g/dl (32.0-36.5); MEAN CORPUSCULAR VOLUME 94.9 fl (80.0-96.0); RED CELL DISTRIBUTION WIDTH 13.2 % (11.5-14.5); WHITE BLOOD COUNT 6.6 K/mm3 (4.0-10.0)
[2017-06-10 07:35] LABS: ANION GAP 7 MEQ/L (8-16); BLOOD UREA NITROGEN 12 MG/DL (7-18); CALCIUM LEVEL 8.7 MG/DL (8.8-10.2); CARBON DIOXIDE LEVEL 26 MEQ/L (21-32); CHLORIDE LEVEL 108 MEQ/L (98-107); CREATININE FOR GFR 1.05 MG/DL (0.70-1.30); GLOMERULAR FILTRATION RATE > 60.0 (>42); GLUCOSE, FASTING 94 MG/DL (83-110); MAGNESIUM LEVEL 2.1 MG/DL (1.8-2.4); POTASSIUM SERUM 4.2 MEQ/L (3.5-5.1); SODIUM LEVEL 141 MEQ/L (136-145)
[2017-06-10] MEDS: CYANOCOBALAMIN 500 MCG TAB PO SCH (10:37)
[2017-06-10] MEDS: THIAMINE 100 MG TAB PO SCH (10:38)
[2017-06-10] MEDS: amLODIPine 5 MG TAB PO SCH (10:39)
[2017-06-10] MEDS: MULTIVITAMINS/MINERALS THERAP 1 TAB PO SCH (10:39)
[2017-06-10] MEDS: METOPROLOL TARTRATE 100 MG TAB PO SCH ×2 (10:39→20:09)
[2017-06-10] MEDS: FOLIC ACID 1 MG TAB PO SCH (10:40)
[2017-06-10] MEDS: DIGOXIN 0.125 MG TAB PO SCH (10:42)
[2017-06-10] MEDS: RIVAROXABAN 20 MG TAB (XARELTO) PO SCH (19:25)
[2017-06-11 06:00] VITALS: BP 120/72
[2017-06-11 06:39] LABS: MEAN CORPUSCULAR HEMOGLOBIN 31.8 pg (27.0-33.0); MEAN CORPUSCULAR HGB CONC 33.7 g/dl (32.0-36.5); MEAN CORPUSCULAR VOLUME 94.3 fl (80.0-96.0); RED CELL DISTRIBUTION WIDTH 13.5 % (11.5-14.5)
[2017-06-11 07:00] LABS: ANION GAP 7 MEQ/L (8-16); BLOOD UREA NITROGEN 11 MG/DL (7-18); CALCIUM LEVEL 8.9 MG/DL (8.8-10.2); CARBON DIOXIDE LEVEL 24 MEQ/L (21-32); CHLORIDE LEVEL 108 MEQ/L (98-107); CREATININE FOR GFR 1.03 MG/DL (0.70-1.30); GLOMERULAR FILTRATION RATE > 60.0 (>42); GLUCOSE, FASTING 93 MG/DL (83-110); POTASSIUM SERUM 3.7 MEQ/L (3.5-5.1); SODIUM LEVEL 139 MEQ/L (136-145)
[2017-06-11] MEDS: MULTIVITAMINS/MINERALS THERAP 1 TAB PO SCH (08:51)
[2017-06-11] MEDS: FOLIC ACID 1 MG TAB PO SCH (08:51)
[2017-06-11] MEDS: THIAMINE 100 MG TAB PO SCH (08:51)
[2017-06-11] MEDS: CYANOCOBALAMIN 500 MCG TAB PO SCH (08:52)
[2017-06-11 08:55] VITALS: BP 133/71
[2017-06-11] MEDS: METOPROLOL TARTRATE 100 MG TAB PO SCH (08:55)
[2017-06-11] MEDS: DIGOXIN 0.125 MG TAB PO SCH (08:55)
[2017-06-11] MEDS: amLODIPine 5 MG TAB PO SCH (08:55)
--- NOTE | 2017-07-07 11:27 | DSES ---
DATE OF ADMISSION: 05/18/2017 DATE OF DISCHARGE: 06/11/2017 The patient was changed to alternate level of care (ALC) status nursing home facility (SNF) on 06/04/2017. PRIMARY DISCHARGE DIAGNOSES: 1. Atrial fibrillation with rapid ventricular response. 2. Anterior right maxillary sinus fracture, status post sinusitis. 3. Right eye conjunctivitis history. 4. Rhabdomyolysis. 5. Acute on chronic renal insufficiency. 6. Alcoholism. 7. Leukocytosis. 8. Elevated liver function tests secondary to alcohol. 9. History of trauma prior to admission resulting in small nasal fracture. CONSULTANTS DURING THIS ADMISSION: Dr. Birch, ENT. DISCHARGE MEDICATIONS: - acetaminophen 1 gram by mouth as needed for back pain. - digoxin 0.125 daily - folic acid 1 mg daily - Lasix 200 mg twice a day - lisinopril 40 mg daily - metoprolol 150 mg twice a day - multivitamin one tablet daily - Xarelto 15 mg daily - thiamine 100 mg daily HOSPITAL COURSE: This is a 77-year-old male admitted on 05/18/2017 with altered mental status who was found to have atrial fibrillation with rapid ventricular response (RVR). He received digoxin 0.125, metoprolol 5 mg IV every 5 minutes as well as metoprolol 150 mg twice a day. Continued on home dose of Xarelto. The patient was admitted to telemetry. Cardiac markers were cycled with negative troponins. He had acute on chronic renal failure with mild rhabdomyolysis treated with intravenous fluid. Admission creatinine 1.98. Discharge creatinine 1.03. Urine blood cultures were negative. Chest x-ray: He had cardiomegaly but no pulmonary edema. Maxillofacial CT was obtained due to recent history of trauma with a small fracture of the anterior wall of the right maxillary sinus with air fluid levels. Dr. Quintana was consulted from ENT and recommended Keflex for 7 days, which the patient completed during his hospital stay. He was changed to ALC status, NSF status on 06/04/2017. Passed a home safety evaluation and on 06/11/2017 was discharged in stable condition. Labs on discharge: White count 7, hemoglobin 13, hematocrit 39, platelet count 248. Sodium 139, potassium 2.7, chloride 108, bicarbonate 24, BUN 11, creatinine 1.03, glucose 93. Two sets of blood culture 05/18/2017 was no growth. Urine culture 05/18/2017 no growth. IMAGING STUDIES: Pelvic x-ray 05/18/2017: No visible or displaced fracture. There are vascular calcifications of the iliac and femoral arteries as well as left-sided phleboliths. Gambino catheter in the penile prostatic area is not visible, likely obscured by symphysis pubis to the left of midline. Maxillofacial CT: Chronic changes. Small fracture of the anterior wall of the right maxillary sinus with air fluid level. CT of the head, 05/18/2017: Chronic brain changes. Facial bone fractures as described previously. Cervical spine CT: Chronic changes with no evidence of acute fracture. Liver ultrasound, 06/18/2017: Chronic liver disease with hyperechogenic parenchyma suggesting fatty infiltration, slightly lobulated margins suggesting chronic liver disease. No ascites. Focal hepatic mesenteric hepatic biliary dilatation or cysts. Contracted gallbladder with a stone visible, full thickness 4.6 mm. No pericholecystic fluid. Pancreas is limited in evaluation due to gas shadowing. Right kidney is unremarkable. Common duct 5.5 mm in normal without filling defect. Time spent on discharge 30 minutes. MTDD
== END 2017-06-11 16:31 | disposition home health service (06) | DRG 558 ==
LOC: M ED 14:59 → M ED INP 15:28 → M PCU 18:11 → M MSPAV 05-21 18:15
PROVIDERS: ADMIT Hospitalist; ATTEND General Practice
DX: M62.82 Rhabdomyolysis (principal); N17.9 Acute kidney failure, unspecified; S02.40CA Maxillary fracture, right side, initial encounter for closed fracture; I12.9 Hypertensive chronic kidney disease with stage 1 through stage 4 chronic kidney disease, or unspecified chronic kidney disease; F10.20 Alcohol dependence, uncomplicated; H10.9 Unspecified conjunctivitis; I48.91 Unspecified atrial fibrillation; Z79.01 Long term (current) use of anticoagulants; Z79.899 Other long term (current) drug therapy; Z87.891 Personal history of nicotine dependence; W06.XXXA Fall from bed, initial encounter; Y92.003 Bedroom of unspecified non-institutional (private) residence as the place of occurrence of the external cause; Y93.84 Activity, sleeping; Y99.9 Unspecified external cause status; R74.0 Nonspecific elevation of levels of transaminase and lactic acid dehydrogenase [LDH]; N18.3 Chronic kidney disease, stage 3 (moderate); Z91.14 Patient's other noncompliance with medication regimen

== ENCOUNTER 2017-09-17 12:05 | Inpatient (IN) | payer OTHER ==
[~2017-09-17] VITALS: Ht 195.6 cm; Wt 116.1 kg
[~2017-09-17 12:05] MED LIST changes: -FOLIC ACID 1 MG TAB PO SCH; +LISI40TAB PO; -MULTIVITAMINS/MINERALS THERAP 1 TAB PO SCH; -THIAMINE 100 MG TAB PO SCH
[2017-09-17] MEDS ORDERED: METOPROLOL TART 50 MG TAB PO ONE (14:15)
[2017-09-17 14:17] LABS: BASO % 0.2 % (0.0-1.0); IMMATURE GRANULOCYTE % 1.1 % (0-0); LYMPH % 1.3 % (24.0-44.0); MEAN CORPUSCULAR HEMOGLOBIN 32.1 pg (27.0-33.0); MEAN CORPUSCULAR HGB CONC 33.8 g/dl (32.0-36.5); MONO # 1.2 10^3/uL (0.0-0.8); MONO % 6.9 % (0.0-5.0); NEUTROPHILS # 15.9 10^3/uL (1.8-7.7); NEUTROPHILS % 90.5 % (36.0-66.0); PLATELET COUNT, AUTOMATED 152 10^3/uL (150-450); RED CELL DISTRIBUTION WIDTH 14.7 % (11.5-14.5); WHITE BLOOD COUNT 17.6 10^3/uL (4.0-10.0)
[2017-09-17] MEDS: METOPROLOL 5 MG/5 ML VIAL IV SCH ×6 (14:18→16:50)
[2017-09-17 14:32] LABS: INR 1.21
[2017-09-17 14:58] LABS: LYMPH # 0.2 10^3/uL (1.5-4.5); POSITIVE DIFF POS FLAG
[2017-09-17 15:11] LABS: ANION GAP 9 MEQ/L (8-16); BLOOD UREA NITROGEN 12 MG/DL (7-18); CALCIUM LEVEL 8.9 MG/DL (8.8-10.2); CARBON DIOXIDE LEVEL 26 MEQ/L (21-32); CHLORIDE LEVEL 99 MEQ/L (98-107); CREATININE FOR GFR 1.06 MG/DL (0.70-1.30); GLOMERULAR FILTRATION RATE > 60.0 (>42); GLUCOSE, FASTING 148 MG/DL (83-110); POTASSIUM SERUM 3.5 MEQ/L (3.5-5.1); SODIUM LEVEL 134 MEQ/L (136-145)
--- NOTE | 2017-09-17 15:20 | REP ---
Chest one-view HISTORY: Atrial fibrillation Comparison: 05/18/2017 The lungs are clear. The cardiac silhouette is enlarged. The pulmonary vasculature is normal in appearance. Impression: Cardiomegaly. Signed by Roman Palma MD 09/17/2017 03:12 P
--- NOTE | 2017-09-17 15:24 | REP ---
RIGHT HIP, AP PELVIS, THREE VIEWS: HISTORY: Trauma. There is no acute fracture or dislocation. There is minimal narrowing of the joint spaces. IMPRESSION: There is no acute fracture or dislocation. Signed by Roman Palma MD 09/17/2017 03:36 P
--- NOTE | 2017-09-17 15:28 | REP ---
RIGHT SHOULDER, THREE VIEWS: HISTORY: Trauma. There is no acute fracture or dislocation. There is narrowing of the joint spaces. Osteophytes are present at the acromioclavicular joint. IMPRESSION: There is no acute fracture or dislocation. Signed by Roman Palma MD 09/17/2017 03:37 P
[2017-09-17 15:39] LABS: ALBUMIN 2.9 GM/DL (3.2-5.2); ALBUMIN/GLOBULIN RATIO 0.58 (1.00-1.93); ALKALINE PHOSPHATASE 106 U/L (45-117); ALT/SGPT 21 U/L (12-78); AST/SGOT 26 U/L (15-37); BILIRUBIN,DIRECT 0.4 MG/DL (0.0-0.2); BILIRUBIN,TOTAL 1.6 MG/DL (0.2-1.0); TOTAL PROTEIN 7.9 GM/DL (6.4-8.2)
[2017-09-17] MEDS ORDERED: HEPARIN DRIP 25,000 UNITS in APPROPRIATE DILUENT 1 EA IV SCH (16:11)
[2017-09-17] MEDS ORDERED: HEPARIN SOD (PORCINE) 5000 UNITS/ML VIAL IV ONE (16:15)
[2017-09-17] MEDS ORDERED: LORazepam 2 MG TAB PO PRN (17:15)
[2017-09-17] MEDS ORDERED: DIGOXIN INJ 0.5 MG/2 ML AMP (J1160) IV STA (17:15)
--- NOTE | 2017-09-17 17:25 | HPEPDOC ---
[facility] Medical History & Physical Date of Admission Sep 17, 2017 History and Physical PRIMARY CARE PROVIDER: Dr. Martinez ATTENDING: Dr. Mi Hightower CHIEF COMPLAINT: Falls HISTORY OF PRESENT ILLNESS: Is a 77-year-old male past medical history of atrial fibrillation, hypertension , alcohol abuse who presents with frequent falls and right hip pain. Patient was recently admitted for atrial fibrillation with rapid ventricular response and at the time had a right anterior maxillary fracture, rhabdomyolysis , and acute kidney injury and chronic kidney disease. Patient now presents with atrial fibrillation with rapid surgical response. He does have altered mental status and is only oriented to person. He states he lives in the emergency department. He is unable to tell me why he presented to the ED however states that he ran out of his medications a few months ago. He also states he still drinks alcohol on his last drink was yesterday. He denies any chest pain/shortness of breath/palpitations. No nausea/vomiting/ abdominal pain. He did have a right hip pain on presentation states he fell on his right hip. An x-ray in the emergency department was done with no fracture noted. The patient did have some mottling in his feet bilaterally with diminished pulses, Dr.Chafe Villa with Dr. Castillo who recommended heparin drip, arterial Doppler ultrasound, and he will see the patient in consultation. PAST MEDICAL HISTORY: As per HPI PAST SURGICAL HISTORY: Left ankle graft SOCIAL HISTORY: Drinks frequently, still an alcoholic. Last drink yesterday. Denies tobacco. FAMILY HISTORY: Non contributory ALLERGIES: Please see below. REVIEW OF SYSTEMS: HEENT: Denies sore throat/headache CARDIOVASCULAR: Denies chest pain/palpitations RESPIRATORY: Denies shortness of breath/cough GASTROINTESTINAL: denies nausea/vomiting GENITOURINARY: Denies dysuria/urinary urgency. MUSCULOSKELETAL: c/o left hip pain NEUROLOGICAL: Denies any focal weakness HOME MEDICATIONS: Please see below. PHYSICAL EXAMINATION: Vitals: (see below) General: No acute distress, laying comfortably in bed. HEENT: Moist mucous membranes. Neck: No JVD or lymphadenopathy Cardiac: Irregularly irregular, tachycardic, No murmurs Pulm: Coarse crackles at the bases b/l. No wheezing, rhonchi Abd: NT/ND + BS Ext: No edema. Dorsal Pedal pulses faint b/l with mottling noted up to the level of the ankles b/l. Popliteal pulses palpable on palpation. Internal/ External rotation of left hip with no pain, full ROM. Alert and oriented to person only. Tremulous LABORATORY DATA: See below. IMAGIN09/17/17 - CXR - Impression: The lungs are clear. The cardiac silhouette is enlarged. The pulmonary vasculature is normal in appearance. 09/17/17 - Right hip/pelvis x ray IMPRESSION:There is no acute fracture or dislocation. 09/17/17 - Right Shoulder x ray IMPRESSION: There is no acute fracture or dislocation. 09/17/17 - Arterial u/s BLE pending MICROBIOLOGY: Please see below. ASSESSMENT/PLAN: 1. AF RVR - 2/2 noncompliance. Denies CP/palptations. Restarted on metoprolol and digoxin. We'll trend cardiac enzymes. Echocardiogram. TSH. 2. Peripheral artery disease- patient with diminished pulses at the dorsal pedal , however does have popliteal pulses palpable on palpation bilaterally. He denies any pain in his lower extremities. Dr. Castillo has been consulted in the emergency department and he will see the patient in consultation. As per recommendations, will continue heparin drip, and obtain an arterial ultrasound. 3. Hypertension- uncontrolled. Restart home meds; and amlodipine. 4. Chronic kidney disease stage III stable weight nephrotoxins 5. Right hip pain likely musculoskeletal. X-ray negative. Full range of motion of the right hip. 6. Alcohol withdrawal, patient continues to drink alcohol. Last drink yesterday. [facility] protocol. Serax/Ativan. 7. Leukocytosis likely reactive. No source of infection. Afebrile. We will continue to monitor. DVT prophylaxis- on heparin Prognosis guarded Patient will follow by Dr. Mi Hightower starting 09/18/17 at 7 AM. Vital Signs Vital Signs Date Time Temp Pulse Resp B/P (MAP) Pulse Ox O2 Delivery O2 Flow Rate FiO2 09/17/17 16:40 125 149/102 09/17/17 15:00 94 09/17/17 12:24 16 Room Air 09/17/17 12:23 98.3 Laboratory Data Labs 24H Laboratory Tests 2 09/17/17 13:06: Immature Granulocyte % (Auto) 1.1H, White Blood Count 17.6H, Red Blood Count 4.61, Hemoglobin 14.8, Hematocrit 43.8, Mean Corpuscular Volume 95.0, Mean Corpuscular Hemoglobin 32.1, Mean Corpuscular Hemoglobin Concent 33.8, Red Cell Distribution Width 14.7H, Platelet Count 152, Neutrophils (%) (Auto) 90.5H, Lymphocytes (%) (Auto) 1.3L, Monocytes (%) (Auto) 6.9H, Eosinophils (%) (Auto) 0.0, Basophils (%) (Auto) 0.2, Neutrophils # (Auto) 15.9H, Lymphocytes # (Auto) 0.2L, Monocytes # (Auto) 1.2H, Eosinophils # (Auto) 0.0, Basophils # (Auto) 0.0 , Immature Granulocyte # (Auto) 0.2H, Nucleated Red Blood Cells % (auto) 0.0, Prothrombin Time 15.5H, Prothromb Time International Ratio 1.21, Activated Partial Thromboplast Time 24.4L, Anion Gap 9, Glomerular Filtration Rate > 60.0 , Blood Urea Nitrogen 12, Creatinine 1.06, Sodium Level 134L, Potassium Level 3.5, Chloride Level 99, Carbon Dioxide Level 26, Calcium Level 8.9, Total Creatine Kinase 243, Aspartate Amino Transf (AST/SGOT) 26, Alanine Aminotransferase (ALT/SGPT) 21, Alkaline Phosphatase 106, Total Bilirubin 1.6H, Direct Bilirubin 0.4H, Creatine Kinase MB 1.6, Creatine Kinase MB Relative Index 0.65, Troponin I < 0.02, Total Protein 7.9, Albumin 2.9L, Albumin/ Globulin Ratio 0.58L, Thyroid Stimulating Hormone (TSH) 0.852 CBC/BMP Laboratory Tests 09/17/17 13:06 Red Blood Count 4.61, Mean Corpuscular Volume 95.0, Mean Corpuscular Hemoglobin 32.1, Mean Corpuscular Hemoglobin Concent 33.8, Red Cell Distribution Width 14.7 H, Neutrophils (%) (Auto) 90.5 H, Lymphocytes (%) (Auto) 1.3 L, Monocytes ( %) (Auto) 6.9 H, Eosinophils (%) (Auto) 0.0, Basophils (%) (Auto) 0.2, Neutrophils # (Auto) 15.9 H, Lymphocytes # (Auto) 0.2 L, Monocytes # (Auto) 1.2 H, Eosinophils # (Auto) 0.0, Basophils # (Auto) 0.0, Calcium Level 8.9, Total Creatine Kinase 243 Home Medications Scheduled Digoxin (Digoxin) 0.125 Mg Tab, 0.125 MG PO DAILY PT NON-COMPLIANT LAST FILLED MEDS 05/2017 Folic Acid (Folic Acid) 1 Mg Tab, 1 MG PO DAILY PT NON-COMPLIANT LAST FILLED MEDS 05/2017 Furosemide (Furosemide) 20 Mg Tab, 20 MG PO BID PT NON-COMPLIANT LAST FILLED MEDS 05/2017 Lisinopril (Lisinopril) 40 Mg Tab, 40 MG PO DAILY PT NON-COMPLIANT LAST FILLED MEDS 05/2017 Metoprolol Tartrate (Metoprolol Tartrate) 50 Mg Tab, 150 MG PO BID PT NON-COMPLIANT LAST FILLED MEDS 05/2017 Multivitamins *[facility] STOCKED* (Thera M Plus *[facility] STOCKED*) 1 Tab Tab, 1 TAB PO DAILY Rivaroxaban (Xarelto) 15 Mg Tab, 15 MG PO DAILY PT NON-COMPLIANT LAST FILLED MEDS 05/2017 Thiamine HCl (Vitamin B-1) 100 Mg Tab, 100 MG PO DAILY Scheduled PRN Acetaminophen (Acetaminophen Extra Stren) 500 Mg Tab, 1,000 MG PO for BACK PAIN Allergies Coded Allergies: No Known Allergies (Verified Allergy, Unknown, 05/01/08) PATRICK BERRY MD Sep 17, 2017 17:25
[2017-09-17 17:32] LABS: MAGNESIUM LEVEL 1.5 MG/DL (1.8-2.4)
[2017-09-17] MEDS ORDERED: amLODIPine 5 MG TAB PO ONE (17:50)
[2017-09-17] MEDS ORDERED: POTASSIUM CHLORIDE 10 MEQ SR TABLET PO ONE (18:00)
[2017-09-17] MEDS ORDERED: LISINOPRIL 20 MG TAB PO ONE (18:30)
[2017-09-17] MEDS: MAG SULF 1GM/100ML (MAG RUN) 1 GM in APPROPRIATE DILUENT 1 EA IV SCH ×2 (18:57→20:46)
--- NOTE | 2017-09-17 19:00 | REPUSA ---
HISTORY: ALTERED MENTAL STATUS, FREQUENT FALLS. Comparison is made to previous head CT dated . TECHNIQUE: Axial CT imaging of brain without contrast. FINDINGS: Ventricles and sulci are enlarged consistent with generalized cerebral atrophy. There is d ecreased CT attenuation bilaterally in the periventricular white matter tracts consistent with microv ascular ischemic changes. There has been no change in a 5 mm lacunar infarct in the left basal gangl ia in the putamen. There is no evidence of intracranial hemorrhage, no mass, acute infarct, or abnormal extra-axial flui d collection seen. Bone windows demonstrate no evidence of fracture or destructive bony lesion at th e skull base. Orbits, paranasal sinuses, and CPA angle regions are normal. IMPRESSION: No change from previous examination demonstrating generalized cerebral atrophy, bilateral periventricular white matter microvascular ischemic changes, and small old subcentimeter lacunar inf arct in the left basal ganglia.
[2017-09-17 21:30] VITALS: BP 158/80
[2017-09-17] MEDS ORDERED: HEPARIN SOD (PORCINE) 5000 UNITS/ML VIAL IV PRN (21:45)
[2017-09-17] MEDS: OXAZEPAM 10 MG CAP PO SCH (22:15)
[2017-09-17 23:30] VITALS: BP 142/86
[2017-09-18] VITALS (9 sets, daily range): BP systolic 110–155; BP diastolic 74–96
[2017-09-18] MEDS: METOPROLOL TART 25 MG TABLET PO SCH ×4 (00:06→18:38)
[2017-09-18] MEDS ORDERED: ACETAMINOPHEN 325 MG/10.15 ML UDC PO ONE (02:30)
[2017-09-18 03:07] LABS: MEAN CORPUSCULAR HEMOGLOBIN 31.9 pg (27.0-33.0); MEAN CORPUSCULAR HGB CONC 33.6 g/dl (32.0-36.5); MEAN CORPUSCULAR VOLUME 95.1 fl (80.0-96.0); PLATELET COUNT, AUTOMATED 133 10^3/uL (150-450); RED CELL DISTRIBUTION WIDTH 14.9 % (11.5-14.5); WHITE BLOOD COUNT 15.1 10^3/uL (4.0-10.0)
[2017-09-18] MEDS: PIPERACILLIN/TAZOBACTAM SOD 3.375 GM in D5W 50 ML IV SCH ×4 (03:16→21:42)
[2017-09-18] MEDS: ACETAMINOPHEN 650 MG SUPP PR PRN ×2 (03:21→12:09)
[2017-09-18 03:47] LABS: ALBUMIN 2.7 GM/DL (3.2-5.2); ALBUMIN/GLOBULIN RATIO 0.77 (1.00-1.93); ALKALINE PHOSPHATASE 90 U/L (45-117); ALT/SGPT 19 U/L (12-78); ANION GAP 12 MEQ/L (8-16); AST/SGOT 33 U/L (15-37); BILIRUBIN,TOTAL 1.4 MG/DL (0.2-1.0); BLOOD UREA NITROGEN 23 MG/DL (7-18); CALCIUM LEVEL 8.5 MG/DL (8.8-10.2); CARBON DIOXIDE LEVEL 24 MEQ/L (21-32); CHLORIDE LEVEL 101 MEQ/L (98-107); CREATININE FOR GFR 1.27 MG/DL (0.70-1.30); GLOMERULAR FILTRATION RATE 58.7 (>42); GLUCOSE, FASTING 121 MG/DL (83-110); MAGNESIUM LEVEL 2.1 MG/DL (1.8-2.4); POTASSIUM SERUM 3.9 MEQ/L (3.5-5.1); SODIUM LEVEL 137 MEQ/L (136-145); TOTAL PROTEIN 6.2 GM/DL (6.4-8.2)
[2017-09-18] MEDS ORDERED: VANCOMYCIN HCL 1,000 MG, VIAL MATE ADAPTER 1 EACH in D5W 250 ML IV ONE (04:00)
--- NOTE | 2017-09-18 05:18 | PHACANCOPD ---
PHARMACY VANCOMYCIN DOSING Pt Demographics Demographics Patient Age:77 , Weight:106.300 , Gender: male Adjusted Body Weight Date: 09/18/17, Adjusted Body Weight: [95.98] Kg Vancomycin Vancomycin indication: SEPSIS Vancomycin Target Ranges: 15-20 mcg/ml Vancomycin Load Y/N: No Load Dose Date Time Vancomycin Load Dose: Date: Time: Vancomycin Dose Date: 09/18/17. Current Vancomycin Dose: [750MG q12H] Intermittent Dosing?: No Labs Labs Laboratory Tests 09/17/17 13:06 Red Blood Count 4.61, Mean Corpuscular Volume 95.0, Mean Corpuscular Hemoglobin 32.1, Mean Corpuscular Hemoglobin Concent 33.8, Red Cell Distribution Width 14.7 H, Neutrophils (%) (Auto) 90.5 H, Lymphocytes (%) (Auto) 1.3 L, Monocytes ( %) (Auto) 6.9 H, Eosinophils (%) (Auto) 0.0, Basophils (%) (Auto) 0.2, Neutrophils # (Auto) 15.9 H, Lymphocytes # (Auto) 0.2 L, Monocytes # (Auto) 1.2 H, Eosinophils # (Auto) 0.0, Basophils # (Auto) 0.0, Calcium Level 8.9, Total Creatine Kinase 243 09/18/17 02:50 Red Blood Count 4.26 L, Mean Corpuscular Volume 95.1, Mean Corpuscular Hemoglobin 31.9, Mean Corpuscular Hemoglobin Concent 33.6, Red Cell Distribution Width 14.9 H, Calcium Level 8.5 L, Total Creatine Kinase 292, Aspartate Amino Transf (AST/SGOT) 33, Alanine Aminotransferase (ALT/SGPT) 19, Alkaline Phosphatase 90, Total Bilirubin 1.4 H, Total Protein 6.2 #L, Albumin 2.7 L Micro Microbiology 09/18/17 Blood Culture, Received Pending 09/18/17 Blood Culture, Received Pending 09/18/17 Urine Culture, Received Pending Creatinine Clearance Date:09/18/17. Creatinine Clearance: [67.2]CALCULATED. Pending Labs Vancomycin trough due 09/19@1500 Assessment and Plan Maintaining Current Dose?: Yes Reason for dose change: No Dose Change Pharmacist Note Pharmacist Note Date: 09/18/17. Pharmacist note:Unclear etiology,sepsis possiblly.77 YOM,6'5", 106.3kg(BBW=95.98kg),SCR 1.27,Calculated CRCL=67.2, Treating w/ Pip/Tazo 3.375 iv q6H and Vancomycin per Pharmacy consult. Vancomycin 1 gram in ED @0431 09/18, then will continue with Vancomycin 750mg IV Q12H to begin@1600 today. First trough is scheduled for 09/19@1500. Will continue to follow [facility] Sep 18, 2017 05:18
--- NOTE | 2017-09-18 05:54 | ECGEPIP ---
Stationary ECG Study [facility] - ED Test Date: 2017-09-17 Pat Name: MAX LUCAS Department: Room: - Gender: M Machine Set Up Technician: [facility] : 1940 Requested By: Judd Bowers Order Number: [id number] Reading MD: Judd Nuñez Measurements Intervals [place] Rate: 153 P: GA: 0 QRS: -26 QRSD: 108 T: 20 QT: 297 QTc: 474 Interpretive Statements ATRIAL FIBRILLATION WITH RAPID VENTRICULAR RESPONSE WITH ABERRANT CONDUCTION OR VENTRICULAR PREMATURE COMPLEXES BORDERLINE LEFT AXIS DEVIATION RATE CHANGE COMPARED TO 05/27/17 Electronically Signed On 09-18-2017 5:54:23 EDT by Judd Nuñez
[2017-09-18] MEDS ORDERED: DIGOXIN INJ 0.5 MG/2 ML AMP (J1160) IV ONE (06:45)
[2017-09-18] MEDS: HEPARIN DRIP 25,000 UNITS in APPROPRIATE DILUENT 1 EA IV SCH (07:10)
[2017-09-18] MEDS: LISINOPRIL 40 MG TAB PO SCH (09:00)
[2017-09-18] MEDS ORDERED: amLODIPine 5 MG TAB PO SCH (09:00)
[2017-09-18] MEDS: THIAMINE 100 MG TAB PO SCH (09:00)
[2017-09-18] MEDS: FOLIC ACID 1 MG TAB PO SCH (09:00)
[2017-09-18] MEDS: MULTIVITAMINS/MINERALS THERAP 1 TAB PO SCH (09:00)
[2017-09-18] MEDS: DIGOXIN 0.125 MG TAB PO SCH (09:06)
[2017-09-18] MEDS: OXAZEPAM 10 MG CAP PO SCH ×3 (09:07→21:42)
[2017-09-18] MEDS ORDERED: MULTIVITAMIN -ADULT INJECTION 10 ML, THIAMINE INJection 100 MG, FOLIC ACID 1 MG in NS 1... IV ONE (11:00)
--- NOTE | 2017-09-18 13:59 | IPNPDOC ---
Subjective Date Seen The patient was seen on 09/18/17. Subjective Chief Complaint/HPI The patient is a 77-year-old male admitted with a reason for visit of Atrial Fibrillation With Rvr, Pvd. Events since last encounter pateint confused and intermittently agitated and aggressive, had a spike of fever this am , having alcohol withdrawal. Objective Physical Examination General Exam: Positive: No Acute Distress, Other (confused) Eye Exam: Positive: PERRLA, Conjunctiva & lids normal, Negative: Sclera icteric Neck Exam: Positive: Supple, Negative: JVD, thyromegaly Chest Exam: Positive: Clear to auscultation, Normal air movement Heart Exam: Positive: Rate Normal, Regular Rhythm, Normal S1, Normal S2, Negative: Murmurs, Rubs Telemetry: Positive: No significant arrhythmia Abdomen Exam: Positive: Normal bowel sounds, Soft, Negative: Tenderness, Hepatospenomegaly Extremity Exam: Positive: Normal pulses, Negative: Clubbing, Cyanosis, Edema Skin Exam: Positive: Nl turgor and temperature, Negative: Rash, Breakdown Assessment /Plan Problems (1) Acute metabolic encephalopathy Status: Acute Problem Text: due to sepsis and alcohol withdrawal. Has radiology evidence of chronic liver disease have to rule associated hepatic encephalopathy (2) Leucocytosis Status: Acute Problem Text: with fever patient empirically started on broad spectrum antibiotics. blood cultures sent, ua clean. May be alcohol withdrawal. (3) Atrial fibrillation with RVR Status: Acute Problem Text: will continue with digoxin and metoprolol. (4) Alcoholism Status: Chronic Problem Text: now having features of withdrawal. will continue with serax and ativan iv prn will continue with banana bag. (5) Systolic CHF, chronic Status: Chronic Problem Text: echo shows reduced systolic function thought to be due to tachycardia induced cardiomyopathy. seems to be dehydrated at this point will continue with gentle hydration till patient can take po . (6) Tachycardia induced cardiomyopathy Status: Chronic Problem Text: due to long standing a fib with rvr. (7) PVD (peripheral vascular disease) Status: Chronic (8) Ischemia of foot Status: Acute Problem Text: on heparin infusion vascular to see. (9) Pulmonary hypertension Status: Chronic (10) Right heart failure Status: Chronic (11) HTN (hypertension) Status: Chronic Problem Text: will continue with lisinopril , amlodipine and metoprolol. (12) Chronic liver disease and cirrhosis Status: Chronic Problem Text: Due to alcohol abuse seen in liver US in april 2017, Chest CT angio of 2012 with features of portal hypertension. Plan/VTE VTE Prophylaxis Ordered?: Yes VS, I&O, 24H, Fishbone Vital Signs/I&O Vital Signs Date Time Temp Pulse Resp B/P (MAP) Pulse Ox O2 Delivery O2 Flow Rate FiO2 09/18/17 12:09 119 142/91 09/18/17 12:00 101.9 20 96 Room Air I&O- Last 24 Hours up to 6 AM 09/19/17 06:00 Intake Total 0 ml Balance 0 ml Laboratory Data 24H LABS Laboratory Tests 2 09/17/17 22:03: Activated Partial Thromboplast Time 182.4*H 09/18/17 02:50: Nucleated Red Blood Cells % (auto) 0.0, Anion Gap 12, Glomerular Filtration Rate 58.7, Lactic Acid Level 1.5, Blood Urea Nitrogen 23#H, Creatinine 1.27, Sodium Level 137, Potassium Level 3.9, Chloride Level 101, Carbon Dioxide Level 24, Calcium Level 8.5L, Aspartate Amino Transf (AST/SGOT) 33, Alanine Aminotransferase (ALT/SGPT) 19, Total Creatine Kinase 292, Alkaline Phosphatase 90, Total Bilirubin 1.4H, Total Protein 6.2#L, Albumin 2.7L, Magnesium Level 2.1 , Creatine Kinase MB 1.0, Creatine Kinase MB Relative Index 0.34, Troponin I < 0.02, Albumin/Globulin Ratio 0.77L 09/18/17 02:52: Urine Appearance HAZY, Urine Color JETHRO, Urine pH 5.0, Urine Specific [place] 1.027, Urine Protein 2+H, Urine Glucose (UA) 1+H, Urine Ketones TRACEH, Urine Urobilinogen 2.0H, Urine Bilirubin NEGATIVE, Urine Leukocyte Esterase NEGATIVE, Urine Blood 2+H, Urine Nitrite NEGATIVE, Urine WBC (Auto) 1, Urine RBC (Auto) 2 , Urine Hyaline Casts (Auto) 0, Urine Bacteria (Auto) NEGATIVE, Urine Squamous Epithelial Cells 0, Urine Mucus (Auto) SMALL, Urine Sperm (Auto) 09/18/17 05:24: Activated Partial Thromboplast Time 148.6*H 09/18/17 10:01: Total Creatine Kinase 321H, Creatine Kinase MB 1.0, Creatine Kinase MB Relative Index 0.31, Troponin I < 0.02 CBC/BMP Laboratory Tests 09/18/17 02:50 Red Blood Count 4.26 L, Mean Corpuscular Volume 95.1, Mean Corpuscular Hemoglobin 31.9, Mean Corpuscular Hemoglobin Concent 33.6, Red Cell Distribution Width 14.9 H, Calcium Level 8.5 L, Aspartate Amino Transf (AST/SGOT ) 33, Alanine Aminotransferase (ALT/SGPT) 19, Total Creatine Kinase 292, Alkaline Phosphatase 90, Total Bilirubin 1.4 H, Total Protein 6.2 #L, Albumin 2.7 L Microbiology Microbiology 09/18/17 Blood Culture, Received Pending 09/18/17 Blood Culture, Received Pending 09/18/17 Urine Culture, Received Pending BRUCE ADRIAN MD Sep 18, 2017 13:59
[2017-09-18] MEDS ORDERED: ACETAMINOPHEN 650 MG SUPP PR ONE (14:30)
[2017-09-18] MEDS ORDERED: VANCOMYCIN HCL 1,000 MG, VIAL MATE ADAPTER 1 EACH in D5W 250 ML IV SCH (16:00)
[2017-09-18] MEDS: LORazepam 2 MG/ML VIAL (J2060) IV PRN (16:23)
[2017-09-18] MEDS: VANCOMYCIN HCL 750 MG, VIAL MATE ADAPTER 1 EACH in D5W 250 ML IV SCH (16:23)
[2017-09-18] MEDS: ACETAMINOPHEN 650 MG SUPP PR SCH (21:42)
[2017-09-19] VITALS (8 sets, daily range): BP systolic 120–170; BP diastolic 65–98
[2017-09-19] MEDS: METOPROLOL TART 25 MG TABLET PO SCH ×4 (01:01→18:13)
[2017-09-19] MEDS: HEPARIN DRIP 25,000 UNITS in APPROPRIATE DILUENT 1 EA IV SCH ×2 (02:22→16:24)
[2017-09-19] MEDS: PIPERACILLIN/TAZOBACTAM SOD 3.375 GM in D5W 50 ML IV SCH ×4 (02:24→21:17)
[2017-09-19] MEDS: VANCOMYCIN HCL 750 MG, VIAL MATE ADAPTER 1 EACH in D5W 250 ML IV SCH ×2 (04:29→14:44)
[2017-09-19] MEDS: ACETAMINOPHEN 650 MG SUPP PR SCH ×2 (06:00→14:42)
[2017-09-19 06:08] LABS: MEAN CORPUSCULAR HEMOGLOBIN 31.9 pg (27.0-33.0); MEAN CORPUSCULAR HGB CONC 32.9 g/dl (32.0-36.5); MEAN CORPUSCULAR VOLUME 97.1 fl (80.0-96.0); PLATELET COUNT, AUTOMATED 118 10^3/uL (150-450); RED CELL DISTRIBUTION WIDTH 14.7 % (11.5-14.5); WHITE BLOOD COUNT 9.2 10^3/uL (4.0-10.0)
[2017-09-19 06:29] LABS: ALBUMIN 2.2 GM/DL (3.2-5.2); ALBUMIN/GLOBULIN RATIO 0.55 (1.00-1.93); ALKALINE PHOSPHATASE 68 U/L (45-117); ALT/SGPT 63 U/L (12-78); ANION GAP 8 MEQ/L (8-16); AST/SGOT 81 U/L (15-37); BLOOD UREA NITROGEN 29 MG/DL (7-18); CALCIUM LEVEL 8.7 MG/DL (8.8-10.2); CARBON DIOXIDE LEVEL 25 MEQ/L (21-32); CHLORIDE LEVEL 103 MEQ/L (98-107); CREATININE FOR GFR 1.11 MG/DL (0.70-1.30); GLOMERULAR FILTRATION RATE > 60.0 (>42); GLUCOSE, FASTING 116 MG/DL (83-110); MAGNESIUM LEVEL 2.1 MG/DL (1.8-2.4); POTASSIUM SERUM 3.2 MEQ/L (3.5-5.1); SODIUM LEVEL 136 MEQ/L (136-145); TOTAL PROTEIN 6.2 GM/DL (6.4-8.2)
[2017-09-19] MEDS ORDERED: INFLUENZA VIRUS VACCINE HIGH DOSE 0.5 ML SYRINGE (90662) IM ONE (09:00)
[2017-09-19] MEDS: FOLIC ACID 1 MG TAB PO SCH (09:42)
[2017-09-19] MEDS: THIAMINE 100 MG TAB PO SCH (09:43)
[2017-09-19] MEDS: LISINOPRIL 40 MG TAB PO SCH (09:43)
[2017-09-19] MEDS: OXAZEPAM 10 MG CAP PO SCH ×3 (09:43→21:16)
[2017-09-19] MEDS: DIGOXIN 0.125 MG TAB PO SCH (09:47)
[2017-09-19] MEDS: MULTIVITAMINS/MINERALS THERAP 1 TAB PO SCH (09:47)
--- NOTE | 2017-09-19 10:39 | IPNPDOC ---
Subjective Date Seen The patient was seen on 09/19/17. Subjective Chief Complaint/HPI The patient is a 77-year-old male admitted with a reason for visit of Atrial Fibrillation With Rvr, Pvd. Events since last encounter more awake and alert, speech more comprehensible , complains of dry mouth , cooperative , denies any nausea or vomiting or diarrhea , denies any chest pain or sob Objective Physical Examination General Exam: Positive: No Acute Distress, Other (confused) Eye Exam: Positive: PERRLA, Conjunctiva & lids normal, Negative: Sclera icteric Neck Exam: Positive: Supple, Negative: JVD, thyromegaly Chest Exam: Positive: Clear to auscultation, Normal air movement Heart Exam: Positive: Rate Normal, Regular Rhythm, Normal S1, Normal S2, Negative: Murmurs, Rubs Telemetry: Positive: No significant arrhythmia Abdomen Exam: Positive: Normal bowel sounds, Soft, Negative: Tenderness, Hepatospenomegaly Extremity Exam: Positive: Normal pulses, Negative: Clubbing, Cyanosis, Edema Skin Exam: Positive: Nl turgor and temperature, Negative: Rash, Breakdown Assessment /Plan Problems (1) Acute metabolic encephalopathy Status: Acute Problem Text: due to sepsis and alcohol withdrawal. Has radiology evidence of chronic liver disease so will check ammonia level to rule associated hepatic encephalopathy (2) Sepsis Status: Acute Problem Text: of unknown source. Blood cultures positive 2/2 of MSSA. continue antibiotics. (3) Bacteremia Status: Acute Problem Text: 2/2 blood cultures positive for gram positive cocci in clusters. had fever and leucocytosis. will continue vanco and cefepime (4) Leucocytosis Status: Acute Problem Text: with fever patient empirically started on broad spectrum antibiotics. blood cultures sent, ua clean. May be alcohol withdrawal. (5) Atrial fibrillation with RVR Status: Acute Problem Text: will continue with digoxin and metoprolol. rate uncrolled so will increase metoprolol (6) Alcoholism Status: Chronic Problem Text: now having features of withdrawal but better since yesterday. will continue with serax and ativan iv prn thiamine and folate. (7) Systolic CHF, chronic Status: Chronic Problem Text: echo shows reduced systolic function thought to be due to tachycardia induced cardiomyopathy. seems to be dehydrated at this point will continue with gentle hydration till patient can take po . (8) Tachycardia induced cardiomyopathy Status: Chronic Problem Text: due to long standing a fib with rvr. (9) PVD (peripheral vascular disease) Status: Chronic (10) Ischemia of foot Status: Acute Problem Text: on heparin infusion vascular to see. (11) Pulmonary hypertension Status: Chronic (12) Right heart failure Status: Chronic (13) HTN (hypertension) Status: Chronic Problem Text: will continue with lisinopril , amlodipine and metoprolol. (14) Fall Status: Acute Problem Text: at home and contusion to the right shoulder and right hip no acute fractures. does not complain of pain today (15) Chronic liver disease and cirrhosis Status: Chronic Problem Text: Due to alcohol abuse seen in liver US in april 2017, Chest CT angio of 2012 with features of portal hypertension. Plan/VTE VTE Prophylaxis Ordered?: Yes VS, I&O, 24H, Fishbone Vital Signs/I&O Vital Signs Date Time Temp Pulse Resp B/P (MAP) Pulse Ox O2 Delivery O2 Flow Rate FiO2 09/19/17 09:47 135 09/19/17 06:37 99.8 09/19/17 06:06 153/84 09/19/17 06:03 20 98 Room Air I&O- Last 24 Hours up to 6 AM 09/20/17 05:59 Intake Total 60 ml Output Total 0 ml Balance 60 ml Laboratory Data 24H LABS Laboratory Tests 2 09/18/17 14:22: Activated Partial Thromboplast Time 67.6H 09/18/17 20:22: Activated Partial Thromboplast Time 72.6H 09/19/17 05:31: Activated Partial Thromboplast Time 55.5H, Nucleated Red Blood Cells % (auto) 0.0, Anion Gap 8, Glomerular Filtration Rate > 60.0, Blood Urea Nitrogen 29H, Creatinine 1.11, Sodium Level 136, Potassium Level 3.2L, Chloride Level 103, Carbon Dioxide Level 25, Calcium Level 8.7L, Aspartate Amino Transf (AST/SGOT) 81H, Alanine Aminotransferase (ALT/SGPT) 63, Alkaline Phosphatase 68, Total Bilirubin 1.0, Total Protein 6.2L, Albumin 2.2L, Magnesium Level 2.1, Albumin/ Globulin Ratio 0.55L CBC/BMP Laboratory Tests 09/19/17 05:31 Red Blood Count 3.85 L, Mean Corpuscular Volume 97.1 H, Mean Corpuscular Hemoglobin 31.9, Mean Corpuscular Hemoglobin Concent 32.9, Red Cell Distribution Width 14.7 H, Calcium Level 8.7 L, Aspartate Amino Transf (AST/SGOT ) 81 H, Alanine Aminotransferase (ALT/SGPT) 63, Alkaline Phosphatase 68, Total Bilirubin 1.0, Total Protein 6.2 L, Albumin 2.2 L Microbiology Microbiology 09/18/17 Blood Culture - Preliminary, Resulted Staphylococcus Aureus 09/18/17 Blood Culture - Preliminary, Resulted Staphylococcus Aureus 09/18/17 Urine Culture, Received Pending BRUCE ADRIAN MD Sep 19, 2017 10:38
[2017-09-19] MEDS: POTASSIUM CHLORIDE 10 MEQ SR TABLET PO SCH (12:42)
--- NOTE | 2017-09-19 17:59 | PHACANCOPD ---
PHARMACY VANCOMYCIN DOSING Pt Demographics Demographics Patient Age:77 , Weight:109.000 , Gender: male Adjusted Body Weight Date: 09/18/17, Adjusted Body Weight: [95.98] Kg Events Past 24 Hours Events Past 24 Hours: YES: Change in CrCl, Fever, NO: Dialysis, Diuretic Therapy, Elevation in WBC, Pending Diagnostics, Pending Procedures, Other Vancomycin Vancomycin indication: SEPSIS Vancomycin Target Ranges: 15-20 mcg/ml Vancomycin Load Y/N: No Load Dose Date Time Vancomycin Load Dose: Date: Time: Vancomycin Dose Date: 09/19/17. Current Vancomycin Dose: [1g IV q12h @04] Date: 09/18/17. Current Vancomycin Dose: [750MG q12H] Intermittent Dosing?: No Labs Labs Item Value Date Time Vancomycin Level Trough 10.7 UG/ML 09/19/17 1225 Creatinine 1.27 MG/DL 09/18/17 0250 Creatinine 1.11 MG/DL 09/19/17 0531 Creatinine 1.06 MG/DL 09/17/17 1306 White Blood Count 17.6 10^3/uL H 09/17/17 1306 White Blood Count 15.1 10^3/uL H 09/18/17 0250 White Blood Count 9.2 10^3/uL 09/19/17 0531 Vital Signs Label Value Date Time Patient Temperature 101.0 degrees F 09/19/17 1600 Temperature Source Temporal 09/19/17 1600 Patient Temperature 100.0 degrees F 09/19/17 1630 Micro Microbiology 09/18/17 Blood Culture - Preliminary, Resulted Staphylococcus Aureus 09/18/17 Blood Culture - Preliminary, Resulted Staphylococcus Aureus 09/18/17 Urine Culture, Received Pending Creatinine Clearance Date:09/19/17. Creatinine Clearance: [71 ml/min]. Date:09/18/17. Creatinine Clearance: [67.2]CALCULATED. Assessment and Plan Maintaining Current Dose?: No Reason for dose change: Trough too low Pharmacist Note Pharmacist Note Date: 09/19/17. Pharmacist note: Vanco trough was drawn ~3.5 hrs before the third dose and came back at 10.7 mcg/ml. SCr has improved. I have changed his dosing to 1g IV q12h. Blood cultures are preliminary positive for Staph aureus 2 /2. We will continue to monitor cultures and renal function and repeat a trough as necessary. Omer Beard.D. Sep 19, 2017 17:59
[2017-09-19] MEDS: LORazepam 2 MG/ML VIAL (J2060) IV PRN (22:44)
[2017-09-20] VITALS: BP 158/102
[2017-09-20] MEDS: METOPROLOL TART 25 MG TABLET PO SCH ×3 (00:24→11:40)
[2017-09-20] MEDS: PIPERACILLIN/TAZOBACTAM SOD 3.375 GM in D5W 50 ML IV SCH ×2 (02:37→08:46)
[2017-09-20] MEDS: LORazepam 2 MG/ML VIAL (J2060) IV PRN ×2 (02:37→20:30)
[2017-09-20 04:00] VITALS: BP 180/94
[2017-09-20] MEDS ORDERED: VANCOMYCIN HCL 1,000 MG, VIAL MATE ADAPTER 1 EACH in D5W 250 ML IV SCH (04:00)
[2017-09-20 06:16] LABS: MEAN CORPUSCULAR HEMOGLOBIN 32.1 pg (27.0-33.0); MEAN CORPUSCULAR HGB CONC 33.3 g/dl (32.0-36.5); MEAN CORPUSCULAR VOLUME 96.3 fl (80.0-96.0); PLATELET COUNT, AUTOMATED 127 10^3/uL (150-450); RED CELL DISTRIBUTION WIDTH 14.5 % (11.5-14.5); WHITE BLOOD COUNT 7.4 10^3/uL (4.0-10.0)
[2017-09-20 06:47] LABS: ALBUMIN 2.1 GM/DL (3.2-5.2); ALBUMIN/GLOBULIN RATIO 0.51 (1.00-1.93); ALKALINE PHOSPHATASE 76 U/L (45-117); ALT/SGPT 43 U/L (12-78); ANION GAP 8 MEQ/L (8-16); AST/SGOT 31 U/L (15-37); BILIRUBIN,TOTAL 0.7 MG/DL (0.2-1.0); BLOOD UREA NITROGEN 21 MG/DL (7-18); CALCIUM LEVEL 8.5 MG/DL (8.8-10.2); CARBON DIOXIDE LEVEL 25 MEQ/L (21-32); CHLORIDE LEVEL 103 MEQ/L (98-107); CREATININE FOR GFR 1.08 MG/DL (0.70-1.30); DIGOXIN LEVEL 0.5 NG/ML (0.5-2.0); GLOMERULAR FILTRATION RATE > 60.0 (>42); GLUCOSE, FASTING 134 MG/DL (83-110); MAGNESIUM LEVEL 1.9 MG/DL (1.8-2.4); POTASSIUM SERUM 3.4 MEQ/L (3.5-5.1); SODIUM LEVEL 136 MEQ/L (136-145); TOTAL PROTEIN 6.2 GM/DL (6.4-8.2)
[2017-09-20 08:00] VITALS: BP 150/90
[2017-09-20] MEDS: POTASSIUM CHLORIDE 10 MEQ SR TABLET PO SCH (08:45)
[2017-09-20] MEDS: MULTIVITAMINS/MINERALS THERAP 1 TAB PO SCH (08:45)
[2017-09-20] MEDS: FOLIC ACID 1 MG TAB PO SCH (08:45)
[2017-09-20] MEDS: DIGOXIN 0.125 MG TAB PO SCH (08:46)
[2017-09-20] MEDS: LISINOPRIL 20 MG TAB PO SCH (08:46)
[2017-09-20] MEDS: THIAMINE 100 MG TAB PO SCH (08:46)
[2017-09-20] MEDS: OXAZEPAM 10 MG CAP PO SCH ×4 (08:46→20:23)
--- NOTE | 2017-09-20 08:57 | REP ---
BILATERAL LOWER EXTREMITY DUPLEX DOPPLER ARTERIAL ULTRASOUND: Real-time ultrasound evaluation and duplex Doppler interrogation of bilateral lower extremity arterial systems is performed. The study is limited due to excessive patient motion. Bilaterally there is moderate calcific plaque extending through the common femoral arteries, superficial femoral and popliteal arteries into the calf arteries. On the right, there are relatively normal flow velocities and Doppler spectral wave forms from right common femoral artery through right popliteal artery. There are monophasic wave forms in the right tibioperoneal trunk and in the anterior and posterior tibial arteries. There is elevated peak systolic velocity in the proximal right anterior tibial artery at 2-3 cm/s with what appears to be severe stenosis at that location. On the left, there are normal flow velocities and Doppler spectral wave forms of the left common femoral artery, superficial femoral artery and popliteal artery. Normal flow velocities and waveforms are also seen in the proximal anterior and posterior tibial arteries as well as the tibioperoneal trunk. There does appear to be probable stenosis of distal anterior and posterior tibial arteries on the left with monophasic wave forms distally in the anterior and posterior tibial arteries. Note is made of a left popliteal cyst measuring 3.4 x 1.7 x 2.5 cm. Signed by Hever Mccain MD 09/20/2017 09:56 A
[2017-09-20] MEDS: HEPARIN DRIP 25,000 UNITS in APPROPRIATE DILUENT 1 EA IV SCH (09:19)
[2017-09-20 12:00] VITALS: BP 179/99
--- NOTE | 2017-09-20 12:26 | IPNPDOC ---
Subjective Date Seen The patient was seen on 09/20/17. Subjective Chief Complaint/HPI The patient is a 77-year-old male admitted with a reason for visit of Atrial Fibrillation With Rvr, Pvd. Events since last encounter patient awake and more responsive today, no fever or chills, no chest pain or sob , no abdominal pain nausea or vomiting. Objective Physical Examination General Exam: Positive: No Acute Distress, Other (confused) Eye Exam: Positive: PERRLA, Conjunctiva & lids normal, Negative: Sclera icteric Neck Exam: Positive: Supple, Negative: JVD, thyromegaly Chest Exam: Positive: Clear to auscultation, Normal air movement Heart Exam: Positive: Rate Normal, Regular Rhythm, Normal S1, Normal S2, Negative: Murmurs, Rubs Telemetry: Positive: No significant arrhythmia Abdomen Exam: Positive: Normal bowel sounds, Soft, Negative: Tenderness, Hepatospenomegaly Extremity Exam: Positive: Normal pulses, Negative: Clubbing, Cyanosis, Edema Skin Exam: Positive: Nl turgor and temperature, Negative: Rash, Breakdown Assessment /Plan Problems (1) Acute metabolic encephalopathy Status: Acute Problem Text: due to sepsis and alcohol withdrawal. still very somnolent Has radiology evidence of chronic liver disease so will have to rule out associated hepatic encephalopathy (2) Sepsis Status: Acute Problem Text: of unknown source. Blood cultures positive 2/2 of MSSA. continue antibiotics. (3) Bacteremia Status: Acute Problem Text: 2/2 blood cultures positive for MSSA had fever and leucocytosis. will change to Nafcillin. (4) Atrial fibrillation with RVR Status: Acute Problem Text: will continue with digoxin and metoprolol. rate uncontrolled so will increase metoprolol started back on xarelto. (5) Alcoholism Status: Chronic Problem Text: now having features of withdrawal but better since yesterday. will continue with serax and ativan iv prn thiamine and folate. (6) Systolic CHF, chronic Status: Chronic Problem Text: echo shows reduced systolic function thought to be due to tachycardia induced cardiomyopathy. seems to be dehydrated at this point will continue with gentle hydration till patient can take po . (7) Tachycardia induced cardiomyopathy Status: Chronic Problem Text: due to long standing a fib with rvr. (8) PVD (peripheral vascular disease) Status: Chronic (9) Ischemia of foot Status: Acute Problem Text: arterial doppler shows left tibial disease spoke with vascular to follow up with Dr Castillo as outpatient will stop heparin infusion and start on xarelto for a fib. (10) Pulmonary hypertension Status: Chronic (11) Right heart failure Status: Chronic (12) HTN (hypertension) Status: Chronic Problem Text: will continue with lisinopril , amlodipine and metoprolol. (13) Fall Status: Acute Problem Text: at home and contusion to the right shoulder and right hip no acute fractures. does not complain of pain today (14) Chronic liver disease and cirrhosis Status: Chronic Problem Text: Due to alcohol abuse seen in liver US in april 2017, Chest CT angio of 2012 with features of portal hypertension. Plan/VTE VTE Prophylaxis Ordered?: Yes VS, I&O, 24H, Fishbone Vital Signs/I&O Vital Signs Date Time Temp Pulse Resp B/P (MAP) Pulse Ox O2 Delivery O2 Flow Rate FiO2 09/20/17 12:00 97.5 115 20 179/99 (125) 97 Room Air I&O- Last 24 Hours up to 6 AM 09/21/17 06:00 Intake Total 120 ml Balance 120 ml Laboratory Data 24H LABS Laboratory Tests 2 09/19/17 12:25: Activated Partial Thromboplast Time 83.5H, Vancomycin Level Trough 10.7 09/19/17 18:59: Activated Partial Thromboplast Time 79.7H 09/20/17 05:58: Activated Partial Thromboplast Time 75.5H, Nucleated Red Blood Cells % (auto) 0.0, Anion Gap 8, Glomerular Filtration Rate > 60.0, Blood Urea Nitrogen 21H, Creatinine 1.08, Sodium Level 136, Potassium Level 3.4L, Chloride Level 103, Carbon Dioxide Level 25, Calcium Level 8.5L, Aspartate Amino Transf (AST/SGOT) 31, Alanine Aminotransferase (ALT/SGPT) 43, Alkaline Phosphatase 76, Total Bilirubin 0.7, Total Protein 6.2L, Albumin 2.1L, Magnesium Level 1.9, Albumin/ Globulin Ratio 0.51L, Digoxin Level 0.5 CBC/BMP Laboratory Tests 09/20/17 05:58 Red Blood Count 3.80 L, Mean Corpuscular Volume 96.3 H, Mean Corpuscular Hemoglobin 32.1, Mean Corpuscular Hemoglobin Concent 33.3, Red Cell Distribution Width 14.5, Calcium Level 8.5 L, Aspartate Amino Transf (AST/SGOT) 31, Alanine Aminotransferase (ALT/SGPT) 43, Alkaline Phosphatase 76, Total Bilirubin 0.7, Total Protein 6.2 L, Albumin 2.1 L Microbiology Microbiology 09/18/17 Blood Culture - Final, Complete Staphylococcus Aureus 09/18/17 Blood Culture - Final, Complete Staphylococcus Aureus 09/18/17 Urine Culture - Final, Complete BRUCE ADRIAN MD Sep 20, 2017 12:26
[2017-09-20] MEDS ORDERED: RIVAROXABAN 15 MG TAB (XARELTO) PO ONE (15:00)
[2017-09-20] MEDS: NAFCILLIN SOD 1 GM in D5W MINI-BAG PLUS 100 ML IV SCH ×2 (15:01→20:07)
[2017-09-20 16:00] VITALS: BP 137/97
[2017-09-20 20:00] VITALS: BP 160/102
[2017-09-20] MEDS: METOPROLOL TARTRATE 100 MG TAB PO SCH (20:07)
[2017-09-21] VITALS: BP 174/104
[2017-09-21] MEDS: NAFCILLIN SOD 1 GM in D5W MINI-BAG PLUS 100 ML IV SCH ×4 (01:48→21:10)
[2017-09-21] MEDS ORDERED: SLF 3 ML SYR IV PRN (02:30)
[2017-09-21 04:00] VITALS: BP 189/121
[2017-09-21] MEDS: LORazepam 2 MG/ML VIAL (J2060) IV PRN (04:30)
[2017-09-21] MEDS: SLF 3 ML SYR IV SCH ×3 (04:30→21:10)
[2017-09-21 05:27] LABS: MEAN CORPUSCULAR HEMOGLOBIN 31.9 pg (27.0-33.0); MEAN CORPUSCULAR VOLUME 96.8 fl (80.0-96.0); PLATELET COUNT, AUTOMATED 141 10^3/uL (150-450); RED CELL DISTRIBUTION WIDTH 14.3 % (11.5-14.5); WHITE BLOOD COUNT 7.9 10^3/uL (4.0-10.0)
[2017-09-21 05:51] LABS: ALBUMIN 2.2 GM/DL (3.2-5.2); ALKALINE PHOSPHATASE 104 U/L (45-117); ALT/SGPT 38 U/L (12-78); ANION GAP 9 MEQ/L (8-16); AST/SGOT 25 U/L (15-37); BILIRUBIN,TOTAL 0.9 MG/DL (0.2-1.0); BLOOD UREA NITROGEN 18 MG/DL (7-18); CALCIUM LEVEL 8.8 MG/DL (8.8-10.2); CARBON DIOXIDE LEVEL 26 MEQ/L (21-32); CHLORIDE LEVEL 103 MEQ/L (98-107); CREATININE FOR GFR 0.97 MG/DL (0.70-1.30); GLOMERULAR FILTRATION RATE > 60.0 (>42); GLUCOSE, FASTING 104 MG/DL (83-110); POTASSIUM SERUM 3.7 MEQ/L (3.5-5.1); SODIUM LEVEL 138 MEQ/L (136-145); TOTAL PROTEIN 6.6 GM/DL (6.4-8.2)
[2017-09-21 08:00] VITALS: BP 185/111
[2017-09-21] MEDS: OXAZEPAM 10 MG CAP PO SCH ×2 (09:18→21:10)
[2017-09-21] MEDS: POTASSIUM CHLORIDE 10 MEQ SR TABLET PO SCH (09:18)
[2017-09-21] MEDS: FOLIC ACID 1 MG TAB PO SCH (09:18)
[2017-09-21] MEDS: THIAMINE 100 MG TAB PO SCH (09:18)
[2017-09-21] MEDS: METOPROLOL TARTRATE 100 MG TAB PO SCH ×2 (09:21→21:10)
[2017-09-21] MEDS: MULTIVITAMINS/MINERALS THERAP 1 TAB PO SCH (09:22)
[2017-09-21] MEDS: LISINOPRIL 20 MG TAB PO SCH (09:22)
[2017-09-21] MEDS: DIGOXIN 0.125 MG TAB PO SCH (09:23)
[2017-09-21 12:00] VITALS: BP 180/108
--- NOTE | 2017-09-21 12:50 | IPNPDOC ---
Subjective Date Seen The patient was seen on 09/21/17. Subjective Chief Complaint/HPI The patient is a 77-year-old male admitted with a reason for visit of Atrial Fibrillation With Rvr, Pvd. Events since last encounter patient sleeping when waken him up answers question but often unclear and mumbles, says mouth is dry, no other complaints, pulse is not controlled yet. Objective Physical Examination General Exam: Positive: Cooperative, No Acute Distress, Other (confused) Eye Exam: Positive: PERRLA, Conjunctiva & lids normal, Negative: Sclera icteric Neck Exam: Positive: Supple, Negative: JVD, thyromegaly Chest Exam: Positive: Clear to auscultation, Normal air movement Heart Exam: Positive: Rate Normal, Regular Rhythm, Normal S1, Normal S2, Negative: Murmurs, Rubs Telemetry: Positive: No significant arrhythmia Abdomen Exam: Positive: Normal bowel sounds, Soft, Negative: Tenderness, Hepatospenomegaly Extremity Exam: Positive: Normal pulses, Negative: Clubbing, Cyanosis, Edema Skin Exam: Positive: Nl turgor and temperature, Negative: Rash, Breakdown Assessment /Plan Problems (1) Sepsis Status: Acute Problem Text: of unknown source. Blood cultures positive 2/2 of MRSA. continue antibiotics. (2) Acute metabolic encephalopathy Status: Acute Problem Text: due to sepsis and alcohol withdrawal. still very somnolent , will decrease dose of serax. Has radiology evidence of chronic liver disease so will check ammonia level to rule associated hepatic encephalopathy (3) Bacteremia Status: Acute Problem Text: 2/2 blood cultures positive for MSSA had fever and leucocytosis. will change to Nafcillin. (4) Leucocytosis Status: Acute Problem Text: improving with fever patient empirically started on broad spectrum antibiotics. Blood cultures MSSA. source undetermined antibiotic changed to nafcillin (5) Atrial fibrillation with RVR Status: Acute Problem Text: will continue with digoxin and metoprolol. rate uncontrolled so will increase metoprolol started back on xarelto. (6) Alcoholism Status: Chronic Problem Text: now having features of withdrawal but better since yesterday. will continue with serax and ativan iv prn thiamine and folate. (7) Systolic CHF, chronic Status: Chronic Problem Text: echo shows reduced systolic function thought to be due to tachycardia induced cardiomyopathy. seems to be dehydrated at this point will continue with gentle hydration till patient can take po . (8) Tachycardia induced cardiomyopathy Status: Chronic Problem Text: due to long standing a fib with rvr. (9) Chronic liver disease and cirrhosis Status: Chronic Problem Text: Due to alcohol abuse seen in liver US in april 2017, Chest CT angio of 2012 with features of portal hypertension. (10) PVD (peripheral vascular disease) Status: Chronic (11) Ischemia of foot Status: Acute Problem Text: arterial doppler shows left tibial disease spoke with vascular to follow up with Dr Castillo as outpatient will stop heparin infusion and start on xarelto for a fib. (12) Pulmonary hypertension Status: Chronic (13) Right heart failure Status: Chronic (14) HTN (hypertension) Status: Chronic Problem Text: will continue with lisinopril , amlodipine and metoprolol. (15) Fall Status: Acute Problem Text: at home and contusion to the right shoulder and right hip no acute fractures. does not complain of pain today Plan/VTE VTE Prophylaxis Ordered?: Yes VS, I&O, 24H, Fishbone Vital Signs/I&O Vital Signs Date Time Temp Pulse Resp B/P (MAP) Pulse Ox O2 Delivery O2 Flow Rate FiO2 09/21/17 09:23 110 09/21/17 09:22 174/90 09/21/17 08:00 98.8 19 98 Room Air Laboratory Data 24H LABS Laboratory Tests 2 09/21/17 05:17: Nucleated Red Blood Cells % (auto) 0.0, Activated Partial Thromboplast Time 37.5 , Anion Gap 9, Glomerular Filtration Rate > 60.0, Blood Urea Nitrogen 18, Creatinine 0.97, Sodium Level 138, Potassium Level 3.7, Chloride Level 103, Carbon Dioxide Level 26, Calcium Level 8.8, Aspartate Amino Transf (AST/SGOT) 25 , Alanine Aminotransferase (ALT/SGPT) 38, Alkaline Phosphatase 104, Total Bilirubin 0.9, Total Protein 6.6, Albumin 2.2L, Magnesium Level 2.0, Albumin/ Globulin Ratio 0.50L CBC/BMP Laboratory Tests 09/21/17 05:17 Red Blood Count 4.01 L, Mean Corpuscular Volume 96.8 H, Mean Corpuscular Hemoglobin 31.9, Mean Corpuscular Hemoglobin Concent 33.0, Red Cell Distribution Width 14.3, Calcium Level 8.8, Aspartate Amino Transf (AST/SGOT) 25 , Alanine Aminotransferase (ALT/SGPT) 38, Alkaline Phosphatase 104, Total Bilirubin 0.9, Total Protein 6.6, Albumin 2.2 L Microbiology Microbiology 09/18/17 Blood Culture - Final, Complete Staphylococcus Aureus 09/18/17 Blood Culture - Final, Complete Staphylococcus Aureus 09/18/17 Urine Culture - Final, Complete BRUCE ADRIAN MD Sep 21, 2017 12:50
[2017-09-21 16:00] VITALS: BP 188/118
[2017-09-21] MEDS: RIVAROXABAN 15 MG TAB (XARELTO) PO SCH (17:35)
[2017-09-21 20:00] VITALS: BP 170/100
[2017-09-22] VITALS: BP 162/98
[2017-09-22] MEDS: NAFCILLIN SOD 1 GM in D5W MINI-BAG PLUS 100 ML IV SCH ×4 (02:22→20:02)
[2017-09-22 04:00] VITALS: BP 133/91
[2017-09-22 05:31] LABS: MEAN CORPUSCULAR HEMOGLOBIN 31.7 pg (27.0-33.0); MEAN CORPUSCULAR HGB CONC 32.9 g/dl (32.0-36.5); MEAN CORPUSCULAR VOLUME 96.3 fl (80.0-96.0); PLATELET COUNT, AUTOMATED 181 10^3/uL (150-450); RED CELL DISTRIBUTION WIDTH 14.4 % (11.5-14.5); WHITE BLOOD COUNT 7.5 10^3/uL (4.0-10.0)
[2017-09-22 05:55] LABS: ALBUMIN 2.3 GM/DL (3.2-5.2); ALBUMIN/GLOBULIN RATIO 0.61 (1.00-1.93); ALKALINE PHOSPHATASE 107 U/L (45-117); ALT/SGPT 29 U/L (12-78); ANION GAP 8 MEQ/L (8-16); AST/SGOT 19 U/L (15-37); BILIRUBIN,TOTAL 0.9 MG/DL (0.2-1.0); BLOOD UREA NITROGEN 22 MG/DL (7-18); CALCIUM LEVEL 8.5 MG/DL (8.8-10.2); CARBON DIOXIDE LEVEL 27 MEQ/L (21-32); CHLORIDE LEVEL 106 MEQ/L (98-107); CREATININE FOR GFR 1.14 MG/DL (0.70-1.30); GLOMERULAR FILTRATION RATE > 60.0 (>42); GLUCOSE, FASTING 111 MG/DL (83-110); MAGNESIUM LEVEL 2.1 MG/DL (1.8-2.4); POTASSIUM SERUM 3.6 MEQ/L (3.5-5.1); SODIUM LEVEL 141 MEQ/L (136-145); TOTAL PROTEIN 6.1 GM/DL (6.4-8.2)
[2017-09-22] MEDS: SLF 3 ML SYR IV SCH ×3 (06:00→20:03)
[2017-09-22 08:00] VITALS: BP 135/89
[2017-09-22] MEDS: MULTIVITAMINS/MINERALS THERAP 1 TAB PO SCH (08:13)
[2017-09-22] MEDS: OXAZEPAM 10 MG CAP PO SCH ×2 (08:13→20:00)
[2017-09-22] MEDS: POTASSIUM CHLORIDE 10 MEQ SR TABLET PO SCH (08:13)
[2017-09-22] MEDS: LISINOPRIL 20 MG TAB PO SCH (08:13)
[2017-09-22] MEDS: DIGOXIN 0.125 MG TAB PO SCH (08:14)
[2017-09-22] MEDS: FOLIC ACID 1 MG TAB PO SCH (08:14)
[2017-09-22] MEDS: METOPROLOL TARTRATE 100 MG TAB PO SCH ×2 (08:15→20:01)
[2017-09-22] MEDS: THIAMINE 100 MG TAB PO SCH (08:23)
[2017-09-22 12:00] VITALS: BP 124/86
--- NOTE | 2017-09-22 13:48 | IPNPDOC ---
Subjective Date Seen The patient was seen on 09/22/17. Subjective Chief Complaint/HPI The patient is a 77-year-old male admitted with a reason for visit of Atrial Fibrillation With Rvr, Pvd. Events since last encounter More awake this morning. No complaints , as per nurses eating a little by himself. Objective Physical Examination General Exam: Positive: Cooperative, No Acute Distress, Other (confused) Eye Exam: Positive: PERRLA, Conjunctiva & lids normal, Negative: Sclera icteric Neck Exam: Positive: Supple, Negative: JVD, thyromegaly Chest Exam: Positive: Clear to auscultation, Normal air movement Heart Exam: Positive: Rate Normal, Regular Rhythm, Normal S1, Normal S2, Negative: Murmurs, Rubs Telemetry: Positive: No significant arrhythmia Abdomen Exam: Positive: Normal bowel sounds, Soft, Negative: Tenderness, Hepatospenomegaly Extremity Exam: Positive: Normal pulses, Negative: Clubbing, Cyanosis, Edema Skin Exam: Positive: Nl turgor and temperature, Negative: Rash, Breakdown Assessment /Plan Problems (1) Acute metabolic encephalopathy Status: Acute Problem Text: due to sepsis and alcohol withdrawal. Has radiology evidence of chronic liver disease but ammonia normal so no hepatic encephalopathy (2) Sepsis Status: Acute Problem Text: of unknown source. Blood cultures positive 2/2 of MSSA. continue antibiotics. will get echo (3) Bacteremia Status: Acute Problem Text: 2/2 blood cultures positive for gram positive cocci in clusters. had fever and leucocytosis. will continue vanco and cefepime (4) Leucocytosis Status: Acute Problem Text: with fever patient empirically started on broad spectrum antibiotics. blood cultures sent, ua clean. May be alcohol withdrawal. (5) Atrial fibrillation with RVR Status: Acute Problem Text: will continue with digoxin and metoprolol. rate uncrolled so will increase metoprolol (6) Alcoholism Status: Chronic Problem Text: now having features of withdrawal but better since yesterday. will continue with serax and ativan iv prn thiamine and folate. (7) Systolic CHF, chronic Status: Chronic Problem Text: echo shows reduced systolic function thought to be due to tachycardia induced cardiomyopathy. seems to be dehydrated at this point will continue with gentle hydration till patient can take po . (8) Tachycardia induced cardiomyopathy Status: Chronic Problem Text: due to long standing a fib with rvr. (9) PVD (peripheral vascular disease) Status: Chronic (10) Ischemia of foot Status: Acute Problem Text: on heparin infusion vascular to see. (11) Pulmonary hypertension Status: Chronic (12) Right heart failure Status: Chronic (13) HTN (hypertension) Status: Chronic Problem Text: will continue with lisinopril , amlodipine and metoprolol. (14) Fall Status: Acute Problem Text: at home and contusion to the right shoulder and right hip no acute fractures. does not complain of pain today (15) Chronic liver disease and cirrhosis Status: Chronic Problem Text: Due to alcohol abuse seen in liver US in april 2017, Chest CT angio of 2012 with features of portal hypertension. Plan/VTE VTE Prophylaxis Ordered?: Yes VS, I&O, 24H, Fishbone Vital Signs/I&O Vital Signs Date Time Temp Pulse Resp B/P (MAP) Pulse Ox O2 Delivery O2 Flow Rate FiO2 09/22/17 12:00 97.4 98 18 124/86 (99) 99 Room Air I&O- Last 24 Hours up to 6 AM 09/23/17 06:00 Intake Total 480 ml Output Total 100 ml Balance 380 ml Laboratory Data 24H LABS Laboratory Tests 2 09/22/17 05:20: Nucleated Red Blood Cells % (auto) 0.0, Anion Gap 8, Glomerular Filtration Rate > 60.0, Blood Urea Nitrogen 22H, Creatinine 1.14, Sodium Level 141, Potassium Level 3.6, Chloride Level 106, Carbon Dioxide Level 27, Calcium Level 8.5L, Aspartate Amino Transf (AST/SGOT) 19, Alanine Aminotransferase (ALT/SGPT) 29, Alkaline Phosphatase 107, Total Bilirubin 0.9, Total Protein 6.1L, Albumin 2.3L , Magnesium Level 2.1, Ammonia 32, Albumin/Globulin Ratio 0.61L CBC/BMP Laboratory Tests 09/22/17 05:20 Red Blood Count 4.07 L, Mean Corpuscular Volume 96.3 H, Mean Corpuscular Hemoglobin 31.7, Mean Corpuscular Hemoglobin Concent 32.9, Red Cell Distribution Width 14.4, Calcium Level 8.5 L, Aspartate Amino Transf (AST/SGOT) 19, Alanine Aminotransferase (ALT/SGPT) 29, Alkaline Phosphatase 107, Total Bilirubin 0.9, Total Protein 6.1 L, Albumin 2.3 L Microbiology Microbiology 09/22/17 Blood Culture, Received Pending 09/22/17 Blood Culture, Received Pending 09/18/17 Blood Culture - Final, Complete Staphylococcus Aureus 09/18/17 Blood Culture - Final, Complete Staphylococcus Aureus 09/18/17 Urine Culture - Final, Complete BRUCE ADRIAN MD Sep 22, 2017 13:48
[2017-09-22] MEDS: RIVAROXABAN 15 MG TAB (XARELTO) PO SCH (17:10)
[2017-09-22 20:00] VITALS: BP 180/100
[2017-09-22 22:00] VITALS: BP_SYST 168; BP_SYST 180; BP_DIAS 110; BP_DIAS 98
[2017-09-23] VITALS (7 sets, daily range): BP systolic 150–167; BP diastolic 88–119
[2017-09-23] MEDS: NAFCILLIN SOD 1 GM in D5W MINI-BAG PLUS 100 ML IV SCH ×4 (02:10→20:34)
[2017-09-23] MEDS: SLF 3 ML SYR IV SCH ×3 (06:04→20:35)
[2017-09-23 06:10] LABS: MEAN CORPUSCULAR HEMOGLOBIN 32.1 pg (27.0-33.0); MEAN CORPUSCULAR HGB CONC 32.7 g/dl (32.0-36.5); PLATELET COUNT, AUTOMATED 262 10^3/uL (150-450); RED CELL DISTRIBUTION WIDTH 14.6 % (11.5-14.5); WHITE BLOOD COUNT 7.2 10^3/uL (4.0-10.0)
[2017-09-23 06:29] LABS: ALBUMIN 2.2 GM/DL (3.2-5.2); ALBUMIN/GLOBULIN RATIO 0.51 (1.00-1.93); ALKALINE PHOSPHATASE 100 U/L (45-117); ALT/SGPT 30 U/L (12-78); ANION GAP 8 MEQ/L (8-16); AST/SGOT 21 U/L (15-37); BILIRUBIN,TOTAL 0.7 MG/DL (0.2-1.0); BLOOD UREA NITROGEN 17 MG/DL (7-18); CALCIUM LEVEL 8.8 MG/DL (8.8-10.2); CARBON DIOXIDE LEVEL 26 MEQ/L (21-32); CHLORIDE LEVEL 105 MEQ/L (98-107); CREATININE FOR GFR 1.18 MG/DL (0.70-1.30); GLOMERULAR FILTRATION RATE > 60.0 (>42); GLUCOSE, FASTING 120 MG/DL (83-110); MAGNESIUM LEVEL 2.2 MG/DL (1.8-2.4); POTASSIUM SERUM 3.6 MEQ/L (3.5-5.1); SODIUM LEVEL 139 MEQ/L (136-145); TOTAL PROTEIN 6.5 GM/DL (6.4-8.2)
[2017-09-23] MEDS: MULTIVITAMINS/MINERALS THERAP 1 TAB PO SCH (09:49)
[2017-09-23] MEDS: THIAMINE 100 MG TAB PO SCH (09:49)
[2017-09-23] MEDS: OXAZEPAM 10 MG CAP PO SCH ×2 (09:50→20:35)
[2017-09-23] MEDS: LISINOPRIL 20 MG TAB PO SCH (09:50)
[2017-09-23] MEDS: METOPROLOL TARTRATE 100 MG TAB PO SCH ×2 (09:50→20:35)
[2017-09-23] MEDS: DIGOXIN 0.125 MG TAB PO SCH (09:50)
[2017-09-23] MEDS: FOLIC ACID 1 MG TAB PO SCH (09:50)
[2017-09-23] MEDS: POTASSIUM CHLORIDE 10 MEQ SR TABLET PO SCH (09:51)
--- NOTE | 2017-09-23 14:05 | IPNPDOC ---
Subjective Date Seen The patient was seen on 09/23/17. Subjective Chief Complaint/HPI The patient is a 77-year-old male admitted with a reason for visit of Atrial Fibrillation With Rvr, Pvd. Events since last encounter pateint does not offer any complaints this am. Objective Physical Examination General Exam: Positive: Cooperative, No Acute Distress, Other (confused) Eye Exam: Positive: PERRLA, Conjunctiva & lids normal, Negative: Sclera icteric Neck Exam: Positive: Supple, Negative: JVD, thyromegaly Chest Exam: Positive: Clear to auscultation, Normal air movement Heart Exam: Positive: Rate Normal, Regular Rhythm, Normal S1, Normal S2, Negative: Murmurs, Rubs Telemetry: Positive: No significant arrhythmia Abdomen Exam: Positive: Normal bowel sounds, Soft, Negative: Tenderness, Hepatospenomegaly Extremity Exam: Positive: Normal pulses, Negative: Clubbing, Cyanosis, Edema Skin Exam: Positive: Nl turgor and temperature, Negative: Rash, Breakdown Assessment /Plan Problems (1) Acute metabolic encephalopathy Status: Acute Problem Text: due to sepsis and alcohol withdrawal. Has radiology evidence of chronic liver disease but ammonia normal so no hepatic encephalopathy (2) Sepsis Status: Acute Problem Text: of unknown source. Blood cultures positive 2/2 of MSSA. continue antibiotics. will get echo (3) Bacteremia Status: Acute Problem Text: 2/2 blood cultures positive for gram positive cocci in clusters. had fever and leucocytosis. will continue nafcillin (4) Leucocytosis Status: Acute Problem Text: with fever patient empirically started on broad spectrum antibiotics. blood cultures sent, ua clean. May be alcohol withdrawal. (5) Atrial fibrillation with RVR Status: Acute Problem Text: will continue with digoxin and metoprolol. rate uncrolled so will increase metoprolol (6) Alcoholism Status: Chronic Problem Text: now having features of withdrawal but better since yesterday. will continue with serax and ativan iv prn thiamine and folate. (7) Systolic CHF, chronic Status: Chronic Problem Text: echo shows reduced systolic function thought to be due to tachycardia induced cardiomyopathy. seems to be dehydrated at this point will continue with gentle hydration till patient can take po . (8) Tachycardia induced cardiomyopathy Status: Chronic Problem Text: due to long standing a fib with rvr. (9) PVD (peripheral vascular disease) Status: Chronic (10) Ischemia of foot Status: Acute Problem Text: on heparin infusion vascular to see. (11) Pulmonary hypertension Status: Chronic (12) Right heart failure Status: Chronic (13) HTN (hypertension) Status: Chronic Problem Text: will continue with lisinopril , amlodipine and metoprolol. (14) Fall Status: Acute Problem Text: at home and contusion to the right shoulder and right hip no acute fractures. does not complain of pain today (15) Chronic liver disease and cirrhosis Status: Chronic Problem Text: Due to alcohol abuse seen in liver US in april 2017, Chest CT angio of 2012 with features of portal hypertension. Plan/VTE VTE Prophylaxis Ordered?: Yes VS, I&O, 24H, Fishbone Vital Signs/I&O Vital Signs Date Time Temp Pulse Resp B/P (MAP) Pulse Ox O2 Delivery O2 Flow Rate FiO2 09/23/17 09:50 140 152/100 09/23/17 06:00 97.0 18 98 Room Air I&O- Last 24 Hours up to 6 AM 09/24/17 06:00 Intake Total 360 ml Output Total 120 ml Balance 240 ml Laboratory Data 24H LABS Laboratory Tests 2 09/23/17 05:46: Nucleated Red Blood Cells % (auto) 0.0, Anion Gap 8, Glomerular Filtration Rate > 60.0, Blood Urea Nitrogen 17, Creatinine 1.18, Sodium Level 139, Potassium Level 3.6, Chloride Level 105, Carbon Dioxide Level 26, Calcium Level 8.8, Aspartate Amino Transf (AST/SGOT) 21, Alanine Aminotransferase (ALT/SGPT) 30, Alkaline Phosphatase 100, Total Bilirubin 0.7, Total Protein 6.5, Albumin 2.2L, Magnesium Level 2.2, Albumin/Globulin Ratio 0.51L CBC/BMP Laboratory Tests 09/23/17 05:46 Red Blood Count 4.02 L, Mean Corpuscular Volume 98.0 H, Mean Corpuscular Hemoglobin 32.1, Mean Corpuscular Hemoglobin Concent 32.7, Red Cell Distribution Width 14.6 H, Calcium Level 8.8, Aspartate Amino Transf (AST/SGOT) 21, Alanine Aminotransferase (ALT/SGPT) 30, Alkaline Phosphatase 100, Total Bilirubin 0.7, Total Protein 6.5, Albumin 2.2 L Microbiology Microbiology 09/22/17 Blood Culture - Preliminary, Resulted No growth after 24 hours . All specim... 10/25/17 Blood Culture - Preliminary, Resulted No growth after 24 hours . All specim... 09/18/17 Blood Culture - Final, Complete Staphylococcus Aureus 09/18/17 Blood Culture - Final, Complete Staphylococcus Aureus 09/18/17 Urine Culture - Final, Complete BRUCE DARIAN MD Sep 23, 2017 14:04
[2017-09-23] MEDS: RIVAROXABAN 15 MG TAB (XARELTO) PO SCH (18:42)
[2017-09-24] MEDS: NAFCILLIN SOD 1 GM in D5W MINI-BAG PLUS 100 ML IV SCH ×4 (02:25→20:29)
[2017-09-24] MEDS: SLF 3 ML SYR IV SCH ×3 (02:26→22:00)
[2017-09-24 06:00] VITALS: BP 160/92
[2017-09-24 06:09] LABS: MEAN CORPUSCULAR HEMOGLOBIN 31.5 pg (27.0-33.0); MEAN CORPUSCULAR VOLUME 95.5 fl (80.0-96.0); PLATELET COUNT, AUTOMATED 340 10^3/uL (150-450); RED CELL DISTRIBUTION WIDTH 14.5 % (11.5-14.5); WHITE BLOOD COUNT 7.7 10^3/uL (4.0-10.0)
[2017-09-24 06:29] LABS: ALBUMIN 2.3 GM/DL (3.2-5.2); ALBUMIN/GLOBULIN RATIO 0.55 (1.00-1.93); ALKALINE PHOSPHATASE 92 U/L (45-117); ALT/SGPT 28 U/L (12-78); ANION GAP 8 MEQ/L (8-16); AST/SGOT 20 U/L (15-37); BILIRUBIN,TOTAL 0.7 MG/DL (0.2-1.0); BLOOD UREA NITROGEN 16 MG/DL (7-18); CALCIUM LEVEL 8.5 MG/DL (8.8-10.2); CARBON DIOXIDE LEVEL 23 MEQ/L (21-32); CHLORIDE LEVEL 106 MEQ/L (98-107); CREATININE FOR GFR 1.11 MG/DL (0.70-1.30); GLOMERULAR FILTRATION RATE > 60.0 (>42); GLUCOSE, FASTING 93 MG/DL (83-110); POTASSIUM SERUM 3.8 MEQ/L (3.5-5.1); SODIUM LEVEL 137 MEQ/L (136-145); TOTAL PROTEIN 6.5 GM/DL (6.4-8.2)
[2017-09-24 07:44] VITALS: BP 160/92
[2017-09-24] MEDS: OXAZEPAM 10 MG CAP PO SCH ×2 (08:44→20:29)
[2017-09-24] MEDS: FOLIC ACID 1 MG TAB PO SCH (08:44)
[2017-09-24] MEDS: THIAMINE 100 MG TAB PO SCH (08:45)
[2017-09-24] MEDS: POTASSIUM CHLORIDE 10 MEQ SR TABLET PO SCH (08:45)
[2017-09-24] MEDS: MULTIVITAMINS/MINERALS THERAP 1 TAB PO SCH (08:45)
[2017-09-24] MEDS: METOPROLOL TARTRATE 100 MG TAB PO SCH ×2 (08:45→20:30)
[2017-09-24] MEDS: LISINOPRIL 20 MG TAB PO SCH (08:46)
[2017-09-24] MEDS: DIGOXIN 0.125 MG TAB PO SCH (08:46)
[2017-09-24] MEDS ORDERED: LISINOPRIL 10 MG TAB PO ONE (10:00)
--- NOTE | 2017-09-24 10:14 | IPNPDOC ---
Subjective Date Seen The patient was seen on 09/24/17. Subjective Chief Complaint/HPI The patient is a 77-year-old male admitted with a reason for visit of Atrial Fibrillation With Rvr, Pvd. Events since last encounter No complaints this morning, awake alert and interactive but slow in his responses with slow speech. No fever or chills, no chest pain or sob, no nausea or vomiting or diarrhea. Objective Physical Examination General Exam: Positive: Cooperative, No Acute Distress, Other (confused) Eye Exam: Positive: PERRLA, Conjunctiva & lids normal, Negative: Sclera icteric Neck Exam: Positive: Supple, Negative: JVD, thyromegaly Chest Exam: Positive: Clear to auscultation, Normal air movement Heart Exam: Positive: Rate Normal, Regular Rhythm, Normal S1, Normal S2, Negative: Murmurs, Rubs Telemetry: Positive: No significant arrhythmia Abdomen Exam: Positive: Normal bowel sounds, Soft, Negative: Tenderness, Hepatospenomegaly Extremity Exam: Positive: Normal pulses, Negative: Clubbing, Cyanosis, Edema Skin Exam: Positive: Nl turgor and temperature, Negative: Rash, Breakdown Assessment /Plan Problems (1) Acute metabolic encephalopathy Status: Acute Response to Treatment: Improving Problem Text: due to sepsis and alcohol withdrawal. Has radiology evidence of chronic liver disease but ammonia normal so no hepatic encephalopathy (2) Sepsis Status: Acute Problem Text: of unknown source. Blood cultures positive 2/2 of MSSA. continue nafcillin. will get echo (3) Bacteremia Status: Acute Problem Text: 2/2 blood cultures positive for MSSA had fever and leucocytosis on admission will continue nafcillin (4) Atrial fibrillation with RVR Status: Acute Problem Text: will continue with digoxin and metoprolol. rate now controlled (5) Alcoholism Status: Chronic Problem Text: withdrawal features have resolved. thiamine and folate. (6) Systolic CHF, chronic Status: Chronic Problem Text: Prior echo shows reduced systolic function thought to be due to tachycardia induced cardiomyopathy. New echo in progress. (7) Tachycardia induced cardiomyopathy Status: Chronic Problem Text: due to long standing a fib with rvr. 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 to follow up with DR llamas as outpatient. (10) Pulmonary hypertension Status: Chronic (11) Right heart failure Status: Chronic (12) HTN (hypertension) Status: Chronic Problem Text: will continue with lisinopril and metoprolol. (13) Fall Status: Acute Problem Text: at home and contusion to the right shoulder and right hip no acute fractures. does not complain of pain today (14) Chronic liver disease and cirrhosis Status: Chronic Problem Text: Due to alcohol abuse seen in liver US in april 2017, Chest CT angio of 2012 with features of portal hypertension. No signs of decompensation Plan/VTE VTE Prophylaxis Ordered?: Yes VS, I&O, 24H, Fishbone Vital Signs/I&O Vital Signs Date Time Temp Pulse Resp B/P (MAP) Pulse Ox O2 Delivery O2 Flow Rate FiO2 09/24/17 08:46 92 09/24/17 08:45 160/92 09/24/17 06:00 98.1 18 96 Room Air I&O- Last 24 Hours up to 6 AM 09/25/17 06:00 Intake Total 0 ml Output Total 0 ml Balance 0 ml Laboratory Data 24H LABS Laboratory Tests 2 09/24/17 05:36: Nucleated Red Blood Cells % (auto) 0.0, Anion Gap 8, Glomerular Filtration Rate > 60.0, Blood Urea Nitrogen 16, Creatinine 1.11, Sodium Level 137, Potassium Level 3.8, Chloride Level 106, Carbon Dioxide Level 23, Calcium Level 8.5L, Aspartate Amino Transf (AST/SGOT) 20, Alanine Aminotransferase (ALT/SGPT) 28, Alkaline Phosphatase 92, Total Bilirubin 0.7, Total Protein 6.5, Albumin 2.3L, Magnesium Level 2.0, Albumin/Globulin Ratio 0.55L CBC/BMP Laboratory Tests 09/24/17 05:36 Red Blood Count 4.00 L, Mean Corpuscular Volume 95.5, Mean Corpuscular Hemoglobin 31.5, Mean Corpuscular Hemoglobin Concent 33.0, Red Cell Distribution Width 14.5, Calcium Level 8.5 L, Aspartate Amino Transf (AST/SGOT) 20, Alanine Aminotransferase (ALT/SGPT) 28, Alkaline Phosphatase 92, Total Bilirubin 0.7, Total Protein 6.5, Albumin 2.3 L Microbiology Microbiology 09/22/17 Blood Culture - Preliminary, Resulted No Growth after 48 hours. All Specime... 09/22/17 Blood Culture - Preliminary, Resulted No Growth after 48 hours. All Specime... 09/18/17 Blood Culture - Final, Complete Staphylococcus Aureus 09/18/17 Blood Culture - Final, Complete Staphylococcus Aureus 09/18/17 Urine Culture - Final, Complete BRUCE ADRIAN MD Sep 24, 2017 10:14
[2017-09-24] MEDS ORDERED: ISOVUE-370 76% 100ML VIAL (Q9967) As Ordered ONE (13:26)
[2017-09-24] MEDS: EUCERIN 120GM CREAM EXT SCH (14:53)
[2017-09-24 16:00] VITALS: BP 156/86
--- NOTE | 2017-09-24 16:43 | REP ---
CT abdomen pelvis with IV but without oral contrast: History: Staph aureus bacteremia. Hip pain. CT contrast dose: 100 mL of intravenous Isovue [address] findings: Digital preliminary brick grader radiographs demonstrate an unremarkable bowel gas pattern. There is a small right pleural effusion noted. There is a 0.7 cm noncalcified pulmonary nodule in the right lower lobe on image 10 of 48 in series 204 of today's study. This is visualized and is unchanged when compared with the prior CT study dated July 18, 2013. There is some peripheral discoid atelectasis in the right lower lobe posteriorly and the posterior pleural angle. No pericardial effusion is seen. There is an accessory splenule in the left upper quadrant. No focal liver lesion is seen. There is evidence of cardiomegaly with by atrial enlargement noted incidentally. No pancreatic abnormality is seen. Kidneys enhance symmetrically are morphologically intact. Pancreas is unremarkable. Gallbladder is small but intact in appearance. Small and large intestinal bowel loops are normal in the upper abdomen. A normal appendix is seen in the right lower quadrant. Urinary bladder is intact. There are dystrophic calcifications in the prostate gland. Vascular calcification is noted without evidence of aneurysm. Bone window settings show no bony destructive lesion. There is osteoporotic wedging in several vertebrae including L4, L3, L1 and T10. No focal bony destructive lesion is seen. No paravertebral soft-tissue mass or abnormal fluid collection is seen. The proximal femurs appear intact. Periarticular soft tissues at the hips are unremarkable. Impression: 1. Small right pleural effusion with some subsegmental discoid atelectasis in the right lower lobe. 2. Cardiomegaly biatrial enlargement. 3. Dystrophic calcifications in the prostate. Otherwise unremarkable CT study of the abdomen and pelvis. No acute intraabdominal abnormality. Signed by Kenneth Will MD 09/24/2017 07:17 P
[2017-09-24] MEDS: RIVAROXABAN 15 MG TAB (XARELTO) PO SCH (17:55)
[2017-09-24 22:00] VITALS: BP 160/96
[2017-09-24] MEDS ORDERED: amLODIPine 5 MG TAB PO ONE (23:45)
[2017-09-25] MEDS: ACETAMINOPHEN 500 MG TAB PO PRN (00:23)
[2017-09-25] MEDS: NAFCILLIN SOD 1 GM in D5W MINI-BAG PLUS 100 ML IV SCH ×4 (01:43→20:33)
[2017-09-25] MEDS: SLF 3 ML SYR IV SCH ×3 (05:06→20:33)
[2017-09-25 06:00] VITALS: BP 160/96
[2017-09-25 06:32] VITALS: BP 160/96
[2017-09-25] MEDS: EUCERIN 120GM CREAM EXT SCH (09:00)
[2017-09-25] MEDS: LISINOPRIL 10 MG TAB PO SCH (09:04)
[2017-09-25] MEDS: METOPROLOL TARTRATE 100 MG TAB PO SCH ×2 (09:05→20:33)
[2017-09-25] MEDS: POTASSIUM CHLORIDE 10 MEQ SR TABLET PO SCH (09:06)
[2017-09-25] MEDS: THIAMINE 100 MG TAB PO SCH (09:06)
[2017-09-25] MEDS: DIGOXIN 0.125 MG TAB PO SCH (09:06)
[2017-09-25] MEDS: MULTIVITAMINS/MINERALS THERAP 1 TAB PO SCH (09:06)
[2017-09-25] MEDS: FOLIC ACID 1 MG TAB PO SCH (09:06)
--- NOTE | 2017-09-25 09:09 | IPNPDOC ---
Subjective Date Seen The patient was seen on 09/25/17. Subjective Chief Complaint/HPI The patient is a 77-year-old male admitted with a reason for visit of Atrial Fibrillation With Rvr, Pvd. Events since last encounter No complaints this am , having breakfast by himself independently, awake alert and cooperative,no fever or chills,no chest pain or sob , no abdominal pain , nausea or vomiting or diarrhea. Objective Physical Examination General Exam: Positive: Alert, Cooperative, No Acute Distress Eye Exam: Positive: PERRLA, Conjunctiva & lids normal, Negative: Sclera icteric ENT Exam: Positive: Atraumatic, Mucous membr. moist/pink, Pharynx Normal Neck Exam: Positive: Supple, Negative: JVD, thyromegaly Chest Exam: Positive: Clear to auscultation, Normal air movement Heart Exam: Positive: Rate Normal, Regular Rhythm, Normal S1, Normal S2, Negative: Murmurs, Rubs Abdomen Exam: Positive: Normal bowel sounds, Soft, Negative: Tenderness, Hepatospenomegaly Extremity Exam: Positive: Normal pulses, Negative: Clubbing, Cyanosis, Edema Skin Exam: Positive: Nl turgor and temperature, Negative: Rash, Breakdown Assessment /Plan Problems (1) Sepsis Status: Acute Response to Treatment: Improving Problem Text: of unknown source. Blood cultures positive 2/2 of MSSA. continue nafcillin. echo done , results no yet available. (2) Acute metabolic encephalopathy Status: Resolved Problem Text: due to sepsis and alcohol withdrawal. Has radiology evidence of chronic liver disease but ammonia normal so hepatic encephalopathy unlikely. (3) Bacteremia Status: Acute Problem Text: 2/2 blood cultures positive for MSSA CT abdomen and pelvis negative, cxr negative, awaiting echo results. had fever and leucocytosis on admission will continue nafcillin consulted ID. (4) Atrial fibrillation with RVR Status: Acute Problem Text: will continue with digoxin and metoprolol. rate now controlled (5) Alcoholism Status: Chronic Problem Text: withdrawal features have resolved. thiamine and folate. (6) Systolic CHF, chronic Status: Chronic Problem Text: Prior echo shows reduced systolic function thought to be due to tachycardia induced cardiomyopathy. New echo in progress. (7) Tachycardia induced cardiomyopathy Status: Chronic Problem Text: due to long standing a fib with rvr. 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 to follow up with DR llamas as outpatient. (10) Pulmonary hypertension Status: Chronic (11) Right heart failure Status: Chronic (12) HTN (hypertension) Status: Chronic Problem Text: will continue with lisinopril and metoprolol. (13) Fall Status: Acute Problem Text: at home and contusion to the right shoulder and right hip no acute fractures. does not complain of pain today (14) Chronic liver disease and cirrhosis Status: Chronic Problem Text: Due to alcohol abuse seen in liver US in april 2017, Chest CT angio of 2012 with features of portal hypertension. No signs of decompensation Plan/VTE VTE Prophylaxis Ordered?: Yes VS, I&O, 24H, Fishbone Vital Signs/I&O Vital Signs Date Time Temp Pulse Resp B/P (MAP) Pulse Ox O2 Delivery O2 Flow Rate FiO2 09/25/17 06:32 77 160/96 09/25/17 06:00 96.9 18 96 Room Air I&O- Last 24 Hours up to 6 AM 09/26/17 06:00 Intake Total 100 ml Balance 100 ml Laboratory Data 24H LABS Laboratory Tests 2 09/24/17 11:32: Erythrocyte Sedimentation Rate 59H, C-Reactive Protein, Quantitative 5.54H Microbiology Microbiology 09/22/17 Blood Culture - Preliminary, Resulted No Growth after 48 hours. All Specime... 09/22/17 Blood Culture - Preliminary, Resulted No Growth after 72 hours. All specime... 09/18/17 Blood Culture - Final, Complete Staphylococcus Aureus 09/18/17 Blood Culture - Final, Complete Staphylococcus Aureus 09/18/17 Urine Culture - Final, Complete BRUCE ADRIAN MD Sep 25, 2017 09:09
[2017-09-25 14:00] VITALS: BP 172/95
[2017-09-25] MEDS: RIVAROXABAN 15 MG TAB (XARELTO) PO SCH (18:25)
[2017-09-25] MEDS: OXAZEPAM 10 MG CAP PO SCH (20:33)
[2017-09-25 22:00] VITALS: BP 170/92
[2017-09-26] MEDS: NAFCILLIN SOD 1 GM in D5W MINI-BAG PLUS 100 ML IV SCH ×4 (01:29→20:25)
[2017-09-26] MEDS: SLF 3 ML SYR IV SCH ×3 (05:07→21:44)
[2017-09-26 06:00] VITALS: BP 146/98
[2017-09-26 08:05] LABS: MEAN CORPUSCULAR HGB CONC 33.3 g/dl (32.0-36.5); MEAN CORPUSCULAR VOLUME 95.9 fl (80.0-96.0); PLATELET COUNT, AUTOMATED 488 10^3/uL (150-450); RED CELL DISTRIBUTION WIDTH 14.4 % (11.5-14.5); WHITE BLOOD COUNT 8.7 10^3/uL (4.0-10.0)
[2017-09-26] MEDS: LISINOPRIL 10 MG TAB PO SCH (08:09)
[2017-09-26] MEDS: METOPROLOL TARTRATE 100 MG TAB PO SCH ×2 (08:09→20:26)
[2017-09-26] MEDS: POTASSIUM CHLORIDE 10 MEQ SR TABLET PO SCH (08:10)
[2017-09-26] MEDS: MULTIVITAMINS/MINERALS THERAP 1 TAB PO SCH (08:10)
[2017-09-26] MEDS: DIGOXIN 0.125 MG TAB PO SCH (08:10)
[2017-09-26] MEDS: EUCERIN 120GM CREAM EXT SCH (08:11)
[2017-09-26] MEDS: FOLIC ACID 1 MG TAB PO SCH (08:11)
[2017-09-26] MEDS: THIAMINE 100 MG TAB PO SCH (08:11)
[2017-09-26 08:19] LABS: ANION GAP 7 MEQ/L (8-16); BLOOD UREA NITROGEN 13 MG/DL (7-18); CALCIUM LEVEL 8.8 MG/DL (8.8-10.2); CARBON DIOXIDE LEVEL 26 MEQ/L (21-32); CHLORIDE LEVEL 105 MEQ/L (98-107); CREATININE FOR GFR 1.19 MG/DL (0.70-1.30); GLOMERULAR FILTRATION RATE > 60.0 (>42); GLUCOSE, FASTING 93 MG/DL (83-110); POTASSIUM SERUM 4.1 MEQ/L (3.5-5.1); SODIUM LEVEL 138 MEQ/L (136-145)
--- NOTE | 2017-09-26 11:32 | IPNPDOC ---
Subjective Date Seen The patient was seen on 09/26/17. Subjective Chief Complaint/HPI Patient seen and examined at the bedside. States that he is feeling well today, denies any acute complaints or overnight events at this time. Objective Physical Examination General Exam: Positive: Alert, Cooperative, No Acute Distress Eye Exam: Negative: Sclera icteric ENT Exam: Positive: Atraumatic, Mucous membr. moist/pink Neck Exam: Negative: JVD Chest Exam: Positive: Clear to auscultation, Normal air movement Heart Exam: Positive: Rate Normal, Normal S1, Normal S2 Abdomen Exam: Positive: Soft, Negative: Tenderness, Hepatospenomegaly Extremity Exam: Negative: Tenderness, Swelling Skin Exam: Negative: Rash, Breakdown Assessment /Plan Plan/VTE VTE Prophylaxis Ordered?: Yes Plan MSSA Bacteremia of Unclear Etiology Positive Blood Cultures x 2 noted from 09/18 Repeat Blood Cultures x 2 negative from 09/22 The patient has remained afebrile since 09/19, WBC wnl, CRP downtrending CXR, CT Abd with no acute findings 2D ECHO pending to r/o possible vegetation Currently on IV Nafcillin ID on board--input appreciated Acute Metabolic Encephalopathy 2/2 Above, Resolved Atrial Fibrillation with RVR, resolved Cont Digoxin, Metoprolol Cont Xarelto for AC Peripheral vascular disease Arterial Doppler of the lower extremities noted The patient has been evaluated by vascular surgery, and has been advised to follow-up as an outpatient History of systolic congestive heart failure Patient noted to have moderately reduced systolic function on echo from 04/2017 Currently appears euvolemic Continue lisinopril, metoprolol Repeat 2-D echocardiogram pending History of alcohol abuse Continue thiamine and folic acid Hypertension, stable Continue lisinopril, metoprolol History of chronic liver disease and cirrhosis 2/2 Alcohol Abuse Liver function tests within normal limits here Continue outpatient follow-up DVT prophylaxis Already on anticoagulation Disposition--pending clearance by physical therapy. Follow-up 2-D echocardiogram. We'll follow-up with ID regarding transition of antibiotic therapy. VS, I&O, 24H, Fishbone Vital Signs/I&O Vital Signs Date Time Temp Pulse Resp B/P (MAP) Pulse Ox O2 Delivery O2 Flow Rate FiO2 09/26/17 09:00 Room Air 09/26/17 08:10 116 09/26/17 08:09 146/98 09/26/17 06:00 97.1 19 96 I&O- Last 24 Hours up to 6 AM 09/27/17 06:00 Intake Total 100 ml Balance 100 ml Laboratory Data 24H LABS Laboratory Tests 2 09/26/17 07:51: Nucleated Red Blood Cells % (auto) 0.0, Anion Gap 7L, Glomerular Filtration Rate > 60.0, Blood Urea Nitrogen 13, Creatinine 1.19, Sodium Level 138, Potassium Level 4.1, Chloride Level 105, Carbon Dioxide Level 26, Calcium Level 8.8, C-Reactive Protein, Quantitative 5.13H CBC/BMP Laboratory Tests 09/26/17 07:51 Red Blood Count 3.94 L, Mean Corpuscular Volume 95.9, Mean Corpuscular Hemoglobin 32.0, Mean Corpuscular Hemoglobin Concent 33.3, Red Cell Distribution Width 14.4, Calcium Level 8.8 Microbiology Microbiology 09/22/17 Blood Culture - Preliminary, Resulted No Growth after 72 hours. All specime... 09/22/17 Blood Culture - Preliminary, Resulted No Growth after 72 hours. All specime... 09/18/17 Blood Culture - Final, Complete Staphylococcus Aureus 09/18/17 Blood Culture - Final, Complete Staphylococcus Aureus 09/18/17 Urine Culture - Final, Complete WILEY GALLO MD Sep 26, 2017 11:31
[2017-09-26 14:00] VITALS: BP 147/91
--- NOTE | 2017-09-26 14:28 | CR ---
DATE OF CONSULTATION: 09/24/2017 I was asked to consult by Dr. Hightower for evaluation of methicillin-sensitive Staphylococcus aureus bacteremia. HISTORY OF PRESENT ILLNESS: Mr. Espitia is a 77-year-old gentleman who was admitted on 09/17/2017 with fever, mental status changes and hip pain. The patient is a very poor historian with a history of alcohol abuse and was not able to give a good history. He was noted to be febrile. Temperature was 101.1 and therefore he was started on broad-spectrum antibiotics. Eventually, blood cultures were positive for methicillin sensitive Staphylococcus aureus (MSSA). The patient was switched to nafcillin 1 gram IV every 6 hours. Two sets of blood cultures on 09/18/2017 were positive for MSSA. Urine culture was negative. Repeat blood cultures on 09/22/2017 were negative. The patient is doing fairly well. He is not able to give me much of a history except that his hip was hurting. He denies any nausea, vomiting or diarrhea. No abdominal pain, chest pain or shortness of breath. He has had about two bowel movements every day. He initially had a white count of 17.6 on admission, currently 7.7. PAST MEDICAL HISTORY: Is significant for alcohol abuse, history of atrial fibrillation with previous admission in May for rapid ventricular response, right maxillary fracture with rhabdomyolysis and acute kidney injury from a fall in May 2017, history of chronic kidney disease, and hypertension. Echocardiogram was last done in May 2017 and showed severe biatrial enlargement with a moderate decreased systolic function, although the echo was of a poor quality. He has history of left shoulder dislocation. PAST SURGICAL HISTORY: Status post open reduction internal fixation of left shoulder. REVIEW OF SYSTEMS: The patient denies any chest pain or shortness of breath. No nausea, vomiting or diarrhea. No abdominal pain. No fever or chills. He does not really know where he is or what brought him in. He does complain of some pain in his hip on the right side. LABORATORY DATA: White count is 7.7, hemoglobin 12.6, hematocrit 38.2, platelets 340. ESR 59. Sodium 137, potassium 3.8, chloride 106, bicarb 23, BUN 16, creatinine 1.1, glucose 93, calcium 8.5, magnesium 2, AST 20, ALT 20, alkaline phosphatase 92. CRP 5.54, total protein 6.5, albumin 2.3. Digoxin level is 0.5. Urinalysis has 1 white cells, 2 red cells, +2 protein, +1, glucose. Blood cultures two sets were positive on 09/18/2017 for MSSA. 09/22/2017 blood cultures were negative. IMAGING STUDY: Shoulder x-ray: No acute fracture or dislocation on the right side. Hip and pelvic x-ray: No acute fracture or dislocation. There is some minimal narrowing of the joint spaces. Chest x-ray showed cardiomegaly, but no infiltrates in the lungs. 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 ALLERGIES: No known drug allergies. MEDICATIONS: - lisinopril 30 mg by mouth daily - Serax 10 mg by mouth at bedtime] - metoprolol 150 mg by mouth twice a day - Xarelto 150 mg by mouth daily - nafcillin 1 gram IV every 6 hours - digoxin 0.125 mg by mouth daily - folic acid 1 mg daily - multivitamin 1 tablet daily - thiamine 100 mg daily - lorazepam 2 mg IV every 4 hours as needed PHYSICAL EXAMINATION: Temperature 98.1. He has been afebrile since 09/20/2017, four days ago. Pulse 92. Blood pressure 160/92. Oxygen sat 96% on room air. Heart: Normal S1, S2. Distant. No murmurs appreciated. Lungs are clear. No wheezes or rhonchi. Abdomen is soft, nontender. No visceromegaly. Back: No costovertebral angle (CVA). Minimal lower lumbare tenderness, but the patient is able to sit up on his own. Skin has multiple ecchymoses that are yellowish in color that looks like old bruises. Extremities: Dry with scaling. Erythema of the plantar aspect of the foot. Toes with severe onychomycosis x10. Dorsalis pedis pulses diminished bilaterally. Neurologic Exam: Alert and oriented to only person not to place. Moves all extremities. although complains of some pain in his right hip. Neck is supple with no jugular venous distention (JVD), no stiffness. IMPRESSION: Mr. Espitia is a 77-year-old gentleman with a history of alcohol abuse, cardiomyopathy and chronic kidney disease who was admitted with atrial fibrillation and rapid ventricular response due to a fever. The patient has Staph aureus bacteremia of unclear origin. One should rule out endocarditis versus an occult abscess such as the psoas abscess or diskitis. The patient does have right hip pain which is new for him. The patient had been on IV nafcillin 1 gram every 6 hours, which is appropriate therapy. PLAN: 1. Schedule echocardiogram to rule out endocarditis. 2. Schedule a CT abdomen and pelvis to rule out occult abscess, psoas abscess or diskitis. The patient does not have significant lumbosacral tenderness. 3. ESR and CRP have been ordered. 4. Discontinue IV nafcillin and start cefazolin 2 grams IV every 8 hours. There has been a lot of literature comparing nafcillin to cefazolin in Staph aureus bacteremia showing decreased mortality, 90-day mortality, in patient's treated with cephalosporin versus nafcillin. If all workup remains negative, then one should schedule a transesophageal echocardiogram to rule out endocarditis that could be missed on transthoracic echo as his echo quality from May was very poor. 5. Please apply Eucerin daily to his feet. He has many cracks and that could be a source of Staph aureus bacteremia. Thank you for the consultation.
[2017-09-26] MEDS: RIVAROXABAN 15 MG TAB (XARELTO) PO SCH (17:18)
[2017-09-26] MEDS: ACETAMINOPHEN 500 MG TAB PO PRN (17:18)
[2017-09-26] MEDS ORDERED: OXAZEPAM 10 MG CAP PO PRN (21:00)
[2017-09-26 22:00] VITALS: BP 152/82
[2017-09-27] MEDS: NAFCILLIN SOD 1 GM in D5W MINI-BAG PLUS 100 ML IV SCH (01:52)
[2017-09-27] MEDS: SLF 3 ML SYR IV SCH ×3 (05:48→21:01)
[2017-09-27 05:52] LABS: MEAN CORPUSCULAR HEMOGLOBIN 31.8 pg (27.0-33.0); MEAN CORPUSCULAR HGB CONC 33.2 g/dl (32.0-36.5); MEAN CORPUSCULAR VOLUME 95.8 fl (80.0-96.0); PLATELET COUNT, AUTOMATED 508 10^3/uL (150-450); RED CELL DISTRIBUTION WIDTH 14.1 % (11.5-14.5); WHITE BLOOD COUNT 8.1 10^3/uL (4.0-10.0)
[2017-09-27 06:00] VITALS: BP 160/98
[2017-09-27 06:19] LABS: ANION GAP 8 MEQ/L (8-16); BLOOD UREA NITROGEN 14 MG/DL (7-18); CALCIUM LEVEL 8.7 MG/DL (8.8-10.2); CARBON DIOXIDE LEVEL 25 MEQ/L (21-32); CHLORIDE LEVEL 104 MEQ/L (98-107); CREATININE FOR GFR 1.11 MG/DL (0.70-1.30); GLOMERULAR FILTRATION RATE > 60.0 (>42); GLUCOSE, FASTING 91 MG/DL (83-110); MAGNESIUM LEVEL 2.2 MG/DL (1.8-2.4); POTASSIUM SERUM 4.3 MEQ/L (3.5-5.1); SODIUM LEVEL 137 MEQ/L (136-145)
[2017-09-27] MEDS: THIAMINE 100 MG TAB PO SCH (08:26)
[2017-09-27] MEDS: DIGOXIN 0.125 MG TAB PO SCH (08:27)
[2017-09-27] MEDS: LISINOPRIL 10 MG TAB PO SCH (08:27)
[2017-09-27] MEDS: FOLIC ACID 1 MG TAB PO SCH (08:28)
[2017-09-27] MEDS: EUCERIN 120GM CREAM EXT SCH (08:28)
[2017-09-27] MEDS: MULTIVITAMINS/MINERALS THERAP 1 TAB PO SCH (08:28)
[2017-09-27] MEDS: METOPROLOL TARTRATE 100 MG TAB PO SCH ×2 (08:28→21:01)
--- NOTE | 2017-09-27 08:59 | IPNPDOC ---
Subjective Date Seen The patient was seen on 09/27/17. Subjective Chief Complaint/HPI Patient seen and examined at the bedside. Denies any acute complaints at this time. Objective Physical Examination General Exam: Positive: Alert, Cooperative, No Acute Distress Eye Exam: Negative: Sclera icteric ENT Exam: Positive: Atraumatic, Mucous membr. moist/pink Neck Exam: Negative: JVD Chest Exam: Positive: Clear to auscultation, Normal air movement Heart Exam: Positive: Rate Normal, Normal S1, Normal S2 Abdomen Exam: Positive: Soft, Negative: Tenderness, Hepatospenomegaly Extremity Exam: Negative: Tenderness, Swelling Skin Exam: Negative: Rash, Breakdown Assessment /Plan Plan/VTE VTE Prophylaxis Ordered?: Yes Plan MSSA Bacteremia of Unclear Etiology Positive Blood Cultures x 2 noted from 09/18 Repeat Blood Cultures x 2 negative from 09/22 The patient has remained afebrile since 09/19, WBC wnl, CXR, CT Abd with no acute findings 2D ECHO pending to r/o possible vegetation, patient may need a follow up PAULO depending on results Currently on IV Cefazolin ID on board--input appreciated Acute Metabolic Encephalopathy 2/2 Above, Resolved Atrial Fibrillation with RVR, resolved Rate Controlled--Cont Digoxin, Metoprolol Cont Xarelto for AC Peripheral vascular disease Arterial Doppler of the lower extremities noted The patient has been evaluated by vascular surgery, and has been advised to follow-up as an outpatient History of systolic congestive heart failure Patient noted to have moderately reduced systolic function on echo from 04/2017 Currently appears euvolemic Continue lisinopril, metoprolol Repeat 2-D echocardiogram pending History of alcohol abuse Continue thiamine and folic acid Hypertension, stable Continue lisinopril, metoprolol History of chronic liver disease and cirrhosis 2/2 Alcohol Abuse Liver function tests within normal limits here Continue outpatient follow-up DVT prophylaxis Already on anticoagulation Disposition--pending clinical improvement, 2-D echocardiogram, and follow up work up. PT on board for functional optimization. VS, I&O, 24H, Fishbone Vital Signs/I&O Vital Signs Date Time Temp Pulse Resp B/P (MAP) Pulse Ox O2 Delivery O2 Flow Rate FiO2 09/27/17 08:28 94 160/98 09/27/17 06:00 97.6 18 95 Room Air Laboratory Data 24H LABS Laboratory Tests 2 09/27/17 05:38: Nucleated Red Blood Cells % (auto) 0.0, Anion Gap 8, Glomerular Filtration Rate > 60.0, Blood Urea Nitrogen 14, Creatinine 1.11, Sodium Level 137, Potassium Level 4.3, Chloride Level 104, Carbon Dioxide Level 25, Calcium Level 8.7L, Magnesium Level 2.2, C-Reactive Protein, Quantitative 5.44H CBC/BMP Laboratory Tests 09/27/17 05:38 Red Blood Count 4.00 L, Mean Corpuscular Volume 95.8, Mean Corpuscular Hemoglobin 31.8, Mean Corpuscular Hemoglobin Concent 33.2, Red Cell Distribution Width 14.1, Calcium Level 8.7 L Microbiology Microbiology 09/22/17 Blood Culture - Preliminary, Resulted No Growth after 72 hours. All specime... 09/22/17 Blood Culture - Final, Complete NO GROWTH AFTER 5 DAYS 09/18/17 Blood Culture - Final, Complete Staphylococcus Aureus 09/18/17 Blood Culture - Final, Complete Staphylococcus Aureus 09/18/17 Urine Culture - Final, Complete WILEY GALLO MD Sep 27, 2017 08:59
[2017-09-27 09:03] LABS: ERYTHROCYTE SEDIMENTATION RATE 56 mm/hr (0-20)
--- NOTE | 2017-09-27 10:34 | ECHO ---
DATE OF PROCEDURE: 09/23/2017 HEIGHT: 77 inches. WEIGHT: 231 pounds. BODY SURFACE AREA: 2.38 meters squared. REFERRING PHYSICIAN: Dr. Mi Hightower INDICATION: Atrial fibrillation. Sepsis. MEASUREMENTS: 2-D measurements: RV - 4.4 cm LV - 5.4 cm Septum - 1.2 cm Posterior wall - 1.2 cm Aortic root - 3.7 cm LA - 5.0 cm LVEF - 60% DOPPLER MEASUREMENTS: AV - 1.2 meters per second LVOT - 0.65 meters per second LVOT diameter - 2.3 cm MV-E - 96 Early mitral deceleration time - 151 milliseconds E prime - 8.2, E/E prime ratio - 11.7 PV - 0.8 meters per second Pulmonary artery acceleration time - 113 milliseconds RVSP - 58 cm IVC - 2.5 cm COMMENTS: Underlying atrial fibrillation without intraventricular conduction disturbance. Markedly dilated left atrium but normal left ventricular size. At least mildly dilated right ventricle with markedly dilated right atrium. LV wall thickness was upper limits of normal. On real-time imaging from the parasternal and apical projections wall motion appeared to be symmetrical and normal. Mildly thickened mitral annulus but normal leaflet thickness and excursion with no posterior systolic buckling. Three equal size aortic cusps with mildly thickened cusp edges but adequate cusp separation. Element of premature cusp closure and reduced aortic root excursion in keeping with reduced forward stroke volume. Normal aortic root size. No apparent intracardiac mass or pericardial effusion. Color flow Doppler study taken from the parasternal and apical projections showed trace aortic, mild to moderate mitral and least mild tricuspid insufficiency. Guided continuous wave Doppler of his aortic valve showed a normal peak systolic velocity against LV outflow tract obstruction. Pulsed and continuous wave Doppler of his LV inflow tract taken from the apical four-chamber projection showed normal diastolic filling velocities against mitral stenosis. There was only early diastolic/passive filling as we would expect with atrial fibrillation. Using pulsed and tissue Doppler of his mitral annulus, his estimated mean left atrial pressure at this time was upper limits of normal. Pulsed and continuous wave Doppler of his pulmonary trunk showed a normal peak systolic velocity against RV outflow tract obstruction. Guided continuous wave Doppler of his tricuspid valve allowed our estimation of his right ventricular systolic pressure (moderately severely increased). His inferior vena cava was prominently dilated with virtually absent respiratory collapse in keeping with elevated central venous pressure/right heart failure. CONCLUSIONS: Somewhat technically difficult study in light of the patient's body habitus but diagnostically useful information was still obtained. Borderline hypertrophied left ventricle with at least mildly impaired global resting systolic function (with the observed mitral insufficiency. A normal ejection fraction here will be 65%). Markedly dilated left atrium but current estimated mean left atrial pressure upper limits of normal. At least mildly dilated right ventricle with adequate right ventricular free wall motion but Doppler evidence of at least moderately severe pulmonary hypertension. Prominently dilated right atrium and inferior vena cava with virtually absent respiratory collapse in keeping with right heart failure. Aortic valvular sclerosis without stenosis and only trace insufficiency. Moderate mitral annular calcification without inflow tract obstruction and at least moderate insufficiency. Comparing above test findings with those of May 20, 2017 did not appear to be a dramatic change.
[2017-09-27 14:00] VITALS: BP 146/84
[2017-09-27] MEDS: RIVAROXABAN 15 MG TAB (XARELTO) PO SCH (17:34)
[2017-09-27 22:00] VITALS: BP 148/68
[2017-09-28 02:00] VITALS: BP 157/72
[2017-09-28] MEDS: SLF 3 ML SYR IV SCH ×3 (05:23→21:15)
[2017-09-28 06:00] VITALS: BP 141/82
[2017-09-28 06:17] LABS: MEAN CORPUSCULAR HEMOGLOBIN 31.4 pg (27.0-33.0); MEAN CORPUSCULAR HGB CONC 32.5 g/dl (32.0-36.5); MEAN CORPUSCULAR VOLUME 96.7 fl (80.0-96.0); PLATELET COUNT, AUTOMATED 571 10^3/uL (150-450); RED CELL DISTRIBUTION WIDTH 14.1 % (11.5-14.5); WHITE BLOOD COUNT 9.8 10^3/uL (4.0-10.0)
[2017-09-28 06:29] LABS: ANION GAP 6 MEQ/L (8-16); BLOOD UREA NITROGEN 14 MG/DL (7-18); CARBON DIOXIDE LEVEL 28 MEQ/L (21-32); CHLORIDE LEVEL 101 MEQ/L (98-107); CREATININE FOR GFR 1.18 MG/DL (0.70-1.30); GLOMERULAR FILTRATION RATE > 60.0 (>42); GLUCOSE, FASTING 86 MG/DL (83-110); MAGNESIUM LEVEL 2.1 MG/DL (1.8-2.4); SODIUM LEVEL 135 MEQ/L (136-145)
[2017-09-28 06:37] LABS: ERYTHROCYTE SEDIMENTATION RATE 74 mm/hr (0-20)
--- NOTE | 2017-09-28 07:33 | IPNPDOC ---
Text Note Date of Service The patient was seen on 09/27/17. VS,Fishbone, I+O VS, Fishbone, I+O Laboratory Tests 09/28/17 05:51 Red Blood Count 3.92 L, Mean Corpuscular Volume 96.7 H, Mean Corpuscular Hemoglobin 31.4, Mean Corpuscular Hemoglobin Concent 32.5, Red Cell Distribution Width 14.1, Calcium Level 9.0 Vital Signs Date Time Temp Pulse Resp B/P (MAP) Pulse Ox O2 Delivery O2 Flow Rate FiO2 09/28/17 06:00 98.1 100 19 141/82 (101) 98 Room Air GME ATTESTATION GME ATTESTATION My preceptor for this patient encounter was physically present in the building during the encounter and was fully available. As needed, all aspects of the patient interview, examination, medical decision making process, and medical care plan development were reviewed and approved by the preceptor. Preceptor is aware and concurs with the plan as stated in the body of this note and will attest to such by his/her cosignature. ATTENDING NOTE Mr. Espitia does not have any complaints this morning, he is laying in bed watching TV. He denies nausea, vomiting or diarrhea. He states that "" there is no infection in my blood, they made a mistake"". Laboratories: White count is 8.1 Hemoglobin is 12.7 Hematocrit is 38.3 Limit is 508 ESR 56, down from 59 on 09/24/2017 Sodium is 137 Potassium 4.3 Chloride 104 B UN 14 Creatinine 1.11 Glucose 91 Calcium 8.7 Magnesium 2.2 CRP 5.44, increased from 09/26/2017 at 5.13 Imaging study: CT ab/pelvis 09/24/2017 showed a small right pleural effusion with some subsegmental discoid atelectasis in the right lower lobe, cardiomegaly atrial enlargement, dystrophic calcifications in the prostate, otherwise unremarkable CT study of the abdomen and pelvis in no acute intra- abdominal abnormality. Physical examination: Temperature 97.3, pulse 101, respiratory rate 19, blood pressure 140/68, pulse ox 98% on room air Heart: Normal S1 and S2, irregular, no murmurs, gallops or rubs appreciated Lungs: Decreased air expansion and effort probably secondary to body habitus, good air entry otherwise no crackles, rales, rhonchi appreciated Abdomen is soft, nontender, obese, NABS 4, no rebound guarding or rigidity and no distention Extremities bilateral feet demonstrate dry flaking skin, cracking skin with hardened, discolored nails with onychomycosis, dosalis pedis pulses diminished b /l, improved skin findings from one day prior with addition of eucerin cream to daily routine Back no CVA tenderness but some lower lumbar tenderness, pt can sit up on his own. visible old bruising on back. Neck is supple with no JVD or stiffness Impressions: Mr. Espitia is a 77 year old man with history of alcohol abuse, cardiomyopathy and chronic kidney disease who is admitted with atrial fibrillation and rapid ventricular response due to fever. The patient had staph aureus bacteremia of unclear origin. Patient did undergo echocardiogram which essentially was negative, imaging so far has been negative for occult abscess. The patient has been transitioned from nafcillin to cefazolin antibiotic therapy. Plan: 1. Since the TTE echocardiogram was negative would recommend transesophageal echocardiogram for further evaluation of endocarditis, if the PAULO is unremarkable for infectious source, may consider MRI of back for evaluation for discitis as potential source for infection. Blood cx have been neg. for 5 days. 2. Continue cefazolin 2gm IVq8H. 3. C/w daily eucerin treatment to his feet. 4. Dr Leon was consulted for PAULO JULIETH SILVA DO Sep 28, 2017 07:33 Yimi Cornelius MD Sep 28, 2017 10:36
[2017-09-28] MEDS: LISINOPRIL 10 MG TAB PO SCH (09:20)
[2017-09-28] MEDS: DIGOXIN 0.125 MG TAB PO SCH (09:21)
[2017-09-28] MEDS: FOLIC ACID 1 MG TAB PO SCH (09:21)
[2017-09-28] MEDS: MULTIVITAMINS/MINERALS THERAP 1 TAB PO SCH (09:21)
[2017-09-28] MEDS: METOPROLOL TARTRATE 100 MG TAB PO SCH ×2 (09:21→21:15)
[2017-09-28] MEDS: THIAMINE 100 MG TAB PO SCH (09:21)
[2017-09-28] MEDS: EUCERIN 120GM CREAM EXT SCH (09:26)
--- NOTE | 2017-09-28 10:08 | IPNPDOC ---
Subjective Date Seen The patient was seen on 09/28/17. Subjective Chief Complaint/HPI Patient seen and examined at the bedside. Denies any acute complaints at this time. Objective Physical Examination General Exam: Positive: Alert, Cooperative, No Acute Distress Eye Exam: Negative: Sclera icteric ENT Exam: Positive: Atraumatic, Mucous membr. moist/pink Neck Exam: Negative: JVD Chest Exam: Positive: Clear to auscultation, Normal air movement Heart Exam: Positive: Rate Normal, Normal S1, Normal S2 Abdomen Exam: Positive: Soft, Negative: Tenderness, Hepatospenomegaly Extremity Exam: Negative: Tenderness, Swelling Skin Exam: Negative: Rash, Breakdown Assessment /Plan Plan/VTE VTE Prophylaxis Ordered?: Yes Plan MSSA Bacteremia of Unclear Etiology Positive Blood Cultures x 2 noted from 09/18 Repeat Blood Cultures x 2 negative from 09/22 The patient has remained afebrile since 09/19, WBC wnl, CXR, CT Abd with no acute findings 2D ECHO with no vegetation noted We will schedule the patient for a follow up PAULO for tomorrow with Cardiology Currently on IV Cefazolin ID on board--input appreciated Acute Metabolic Encephalopathy 2/2 Above, Resolved Atrial Fibrillation with RVR, resolved Rate Controlled--Cont Digoxin, Metoprolol Cont Xarelto for AC Peripheral vascular disease Arterial Doppler of the lower extremities noted The patient has been evaluated by vascular surgery, and has been advised to follow-up as an outpatient History of systolic congestive heart failure Currently appears euvolemic Continue lisinopril, metoprolol 2-D echocardiogram from this hospitalization noted History of alcohol abuse Continue thiamine and folic acid Hypertension, stable Continue lisinopril, metoprolol History of chronic liver disease and 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 PT on board for functional optimization. VS, I&O, 24H, Fishbone Vital Signs/I&O Vital Signs Date Time Temp Pulse Resp B/P (MAP) Pulse Ox O2 Delivery O2 Flow Rate FiO2 09/28/17 09:21 90 156/98 09/28/17 06:00 98.1 19 98 Room Air Laboratory Data 24H LABS Laboratory Tests 2 09/28/17 05:51: Nucleated Red Blood Cells % (auto) 0.0, Erythrocyte Sedimentation Rate 74H, Anion Gap 6L, Glomerular Filtration Rate > 60.0, Blood Urea Nitrogen 14, Creatinine 1.18, Sodium Level 135L, Potassium Level 4.0, Chloride Level 101, Carbon Dioxide Level 28, Calcium Level 9.0, Magnesium Level 2.1, C-Reactive Protein, Quantitative 5.41H CBC/BMP Laboratory Tests 09/28/17 05:51 Red Blood Count 3.92 L, Mean Corpuscular Volume 96.7 H, Mean Corpuscular Hemoglobin 31.4, Mean Corpuscular Hemoglobin Concent 32.5, Red Cell Distribution Width 14.1, Calcium Level 9.0 Microbiology Microbiology 09/22/17 Blood Culture - Final, Complete NO GROWTH AFTER 5 DAYS 09/22/17 Blood Culture - Final, Complete NO GROWTH AFTER 5 DAYS 09/18/17 Blood Culture - Final, Complete Staphylococcus Aureus 09/18/17 Blood Culture - Final, Complete Staphylococcus Aureus 09/18/17 Urine Culture - Final, Complete WILEY GALLO MD Sep 28, 2017 10:08
[2017-09-28 14:00] VITALS: BP 149/77
--- NOTE | 2017-09-28 14:27 | IPNPDOC ---
Text Note Date of Service The patient was seen on 09/28/17. NOTE Mr. Espitia does not have any complaints again this morning, he is laying in bed watching TV. He denies nausea, vomiting or diarrhea. Laboratories: WBC 9.8 Hemoglobin 12.3 Hematocrit 37.9 Platelet count 571 ESR 74 Sodium 135 Potassium 4.0 Chloride 101 BUN 14 Creatinine 1.18 Glucose 86 Calcium 9.0 CRP 5.41 Magnesium 2.1 Imaging study: CT ab/pelvis 09/24/2017 showed a small right pleural effusion with some subsegmental discoid atelectasis in the right lower lobe, cardiomegaly atrial enlargement, dystrophic calcifications in the prostate, otherwise unremarkable CT study of the abdomen and pelvis in no acute intra- abdominal abnormality. Physical examination: Temperature 98.1 Pulse 90 regular Blood pressure 156/98 90% on room air Heart: Normal S1 and S2, irregular, no murmurs, gallops or rubs appreciated Lungs: Decreased air expansion and effort probably secondary to body habitus, good air entry otherwise no crackles, rales, rhonchi appreciated Abdomen is soft, nontender, obese, NABS 4, no rebound guarding or rigidity and no distention Extremities bilateral feet demonstrate dry flaking skin, cracking skin with hardened, discolored nails with onychomycosis, dorsalis pedis pulses diminished b/l, again with improved skin findings from one day prior with addition of eucerin cream to daily routine Back no CVA tenderness but some lower lumbar tenderness, pt can sit up on his own. visible old bruising on back. Neck is supple with no JVD or stiffness Impressions: Mr. Espitia is a 77 year old man with history of alcohol abuse, cardiomyopathy and chronic kidney disease who is admitted with atrial fibrillation and rapid ventricular response due to fever. The patient had staph aureus bacteremia of unclear origin. Patient did undergo echocardiogram which essentially was negative, imaging so far has been negative for occult abscess. The patient has been transitioned from nafcillin to cefazolin antibiotic therapy, the patient has remained afebrile since August with no white count, blood cx. repeat x2 negative from 09/22/17, initial blood cx positive for MSSA from . Plan: 1. Since the TTE echocardiogram was negative for vegetation, pt is scheduled to obtain transesophageal echocardiogram for further evaluation of endocarditis, if the PAULO is unremarkable for infectious source, may consider MRI of back for evaluation for discitis as potential source for infection. Blood cx have been neg. for 5 days. 2. Continue cefazolin 2gm IVq8H. 3. C/w daily eucerin treatment to his feet. 4. Dr Leon was consulted for PAULO VS,Fishbone, I+O VS, Fishbone, I+O Laboratory Tests 09/28/17 05:51 Red Blood Count 3.92 L, Mean Corpuscular Volume 96.7 H, Mean Corpuscular Hemoglobin 31.4, Mean Corpuscular Hemoglobin Concent 32.5, Red Cell Distribution Width 14.1, Calcium Level 9.0 Vital Signs Date Time Temp Pulse Resp B/P (MAP) Pulse Ox O2 Delivery O2 Flow Rate FiO2 09/28/17 09:21 90 156/98 09/28/17 09:00 Room Air 09/28/17 06:00 98.1 19 98 I&O- Last 24 Hours up to 6 AM 09/29/17 06:00 Intake Total 360 ml Output Total 100 ml Balance 260 ml GME ATTESTATION GME ATTESTATION My preceptor for this patient encounter was physically present in the building during the encounter and was fully available. As needed, all aspects of the patient interview, examination, medical decision making process, and medical care plan development were reviewed and approved by the preceptor. Preceptor is aware and concurs with the plan as stated in the body of this note and will attest to such by his/her cosignature. JULIETH SILVA DO Sep 28, 2017 14:27
[2017-09-28] MEDS: RIVAROXABAN 15 MG TAB (XARELTO) PO SCH (17:12)
[2017-09-28 22:00] VITALS: BP 144/90
[2017-09-29 05:58] LABS: MEAN CORPUSCULAR HEMOGLOBIN 31.5 pg (27.0-33.0); MEAN CORPUSCULAR HGB CONC 33.2 g/dl (32.0-36.5); MEAN CORPUSCULAR VOLUME 95.1 fl (80.0-96.0); PLATELET COUNT, AUTOMATED 555 10^3/uL (150-450); RED CELL DISTRIBUTION WIDTH 13.9 % (11.5-14.5); WHITE BLOOD COUNT 9.4 10^3/uL (4.0-10.0)
[2017-09-29 06:00] VITALS: BP 144/95
[2017-09-29 06:14] LABS: ANION GAP 9 MEQ/L (8-16); BLOOD UREA NITROGEN 12 MG/DL (7-18); CARBON DIOXIDE LEVEL 25 MEQ/L (21-32); CHLORIDE LEVEL 103 MEQ/L (98-107); CREATININE FOR GFR 1.12 MG/DL (0.70-1.30); GLOMERULAR FILTRATION RATE > 60.0 (>42); GLUCOSE, FASTING 90 MG/DL (83-110); MAGNESIUM LEVEL 1.9 MG/DL (1.8-2.4); POTASSIUM SERUM 3.9 MEQ/L (3.5-5.1); SODIUM LEVEL 137 MEQ/L (136-145)
[2017-09-29] MEDS: SLF 3 ML SYR IV SCH ×3 (06:28→21:19)
[2017-09-29 06:45] LABS: ERYTHROCYTE SEDIMENTATION RATE 68 mm/hr (0-20)
--- NOTE | 2017-09-29 07:58 | IPN ---
DATE: 09/29/2017 I was asked by attending physician to perform transesophageal echocardiogram on Mr. Espitia because of finding of gram-positive bacteremia that ended up being methicillin sensitive Staphylococcus aureus (MSSA). There is no obvious source and suspicion for bacterial endocarditis. I have met with the patient yesterday to get an informed consent but yesterday he told me that he is wants to do the procedure just not yet and refused to sign the consent. Consequently, I returned back this morning. I again discussed the rationale for the procedure, the potential findings and the alternatives and risks. He was way more receptive today. He had appropriate question and signed appropriate consent. I briefly examined the patient. He does have his own teeth. I did not appreciated anything loose. He has airway class I. Lungs are clear and heart exam reveals a faint systolic murmur but I do not appreciate any obvious diastolic murmur, as such, I do not appreciate any peripheral sequelae of bacterial endocarditis. He labs are otherwise stable. Hemoglobin is 13, WBC count 9.3, platelet count 555,000. Basic metabolic panel is normal. His CRP is slowly going down and is 4.6 today. The procedure is tentatively scheduled for tomorrow morning 0730. The patient will be made nothing by mouth after midnight. AWILDAD
[2017-09-29] MEDS: METOPROLOL TARTRATE 100 MG TAB PO SCH ×2 (08:57→21:19)
[2017-09-29] MEDS: LISINOPRIL 10 MG TAB PO SCH (08:57)
[2017-09-29] MEDS: MULTIVITAMINS/MINERALS THERAP 1 TAB PO SCH (08:58)
[2017-09-29] MEDS: FOLIC ACID 1 MG TAB PO SCH (08:58)
[2017-09-29] MEDS: THIAMINE 100 MG TAB PO SCH (08:59)
[2017-09-29] MEDS: DIGOXIN 0.125 MG TAB PO SCH (09:01)
[2017-09-29] MEDS: EUCERIN 120GM CREAM EXT SCH (09:03)
--- NOTE | 2017-09-29 11:19 | IPNPDOC ---
Subjective Date Seen The patient was seen on 09/29/17. Subjective Chief Complaint/HPI Patient seen and examined at bedside. I discussed the importance of the patient obtaining his PAULO tomorrow and working with physical therapy regularly again extensively this morning. The patient verbalized understanding of this. He denies any acute complaints at this time. Objective Physical Examination General Exam: Positive: Alert, Cooperative, No Acute Distress Eye Exam: Negative: Sclera icteric ENT Exam: Positive: Atraumatic, Mucous membr. moist/pink Neck Exam: Negative: JVD Chest Exam: Positive: Clear to auscultation, Normal air movement Heart Exam: Positive: Rate Normal, Normal S1, Normal S2 Abdomen Exam: Positive: Soft, Negative: Tenderness, Hepatospenomegaly Extremity Exam: Negative: Tenderness, Swelling Skin Exam: Negative: Rash, Breakdown Assessment /Plan Plan/VTE VTE Prophylaxis Ordered?: Yes Plan MSSA Bacteremia of Unclear Etiology Positive Blood Cultures x 2 noted from 09/18 Repeat Blood Cultures x 2 negative from 09/22 The patient has remained afebrile since 09/19, WBC wnl, CRP downtrending CXR, CT Abd with no acute findings 2D ECHO with no vegetation noted We will schedule the patient for a follow up PAULO for tomorrow with Cardiology Will hold off obtaining MRI for diskitis work up at this time as the patient does not have any c/o of back pain, or signs/symptoms suggestive of diskitis Currently on IV Cefazolin ID on board--input appreciated Acute Metabolic Encephalopathy 2/2 Above, Resolved Atrial Fibrillation with RVR, resolved Rate Controlled--Cont Digoxin, Metoprolol Cont Xarelto for AC Peripheral vascular disease Arterial Doppler of the lower extremities noted The patient has been evaluated by vascular surgery, and has been advised to follow-up as an outpatient History of systolic congestive heart failure Currently appears euvolemic Continue lisinopril, metoprolol 2-D echocardiogram from this hospitalization noted History of alcohol abuse Continue thiamine and folic acid Hypertension, stable Continue lisinopril, metoprolol History of chronic liver disease and 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 PT on board for functional optimization. VS, I&O, 24H, Fishbone Vital Signs/I&O Vital Signs Date Time Temp Pulse Resp B/P (MAP) Pulse Ox O2 Delivery O2 Flow Rate FiO2 09/29/17 09:01 80 09/29/17 08:57 144/95 09/29/17 06:30 Room Air 09/29/17 06:00 97.0 19 96 Laboratory Data 24H LABS Laboratory Tests 2 09/29/17 05:32: Nucleated Red Blood Cells % (auto) 0.0, Erythrocyte Sedimentation Rate 68H, Anion Gap 9, Glomerular Filtration Rate > 60.0, Blood Urea Nitrogen 12, Creatinine 1.12, Sodium Level 137, Potassium Level 3.9, Chloride Level 103, Carbon Dioxide Level 25, Calcium Level 9.0, Magnesium Level 1.9, C-Reactive Protein, Quantitative 4.57H CBC/BMP Laboratory Tests 09/29/17 05:32 Red Blood Count 3.90 L, Mean Corpuscular Volume 95.1, Mean Corpuscular Hemoglobin 31.5, Mean Corpuscular Hemoglobin Concent 33.2, Red Cell Distribution Width 13.9, Calcium Level 9.0 Microbiology Microbiology 09/22/17 Blood Culture - Final, Complete NO GROWTH AFTER 5 DAYS 09/22/17 Blood Culture - Final, Complete NO GROWTH AFTER 5 DAYS WILEY GALLO MD Sep 29, 2017 11:19
[2017-09-29 14:00] VITALS: BP 142/78
[2017-09-29] MEDS: RIVAROXABAN 15 MG TAB (XARELTO) PO SCH (19:05)
[2017-09-29 22:00] VITALS: BP 158/94
[2017-09-30] VITALS (7 sets, daily range): BP systolic 130–176; BP diastolic 73–99
[2017-09-30 06:18] LABS: MEAN CORPUSCULAR HEMOGLOBIN 31.7 pg (27.0-33.0); PLATELET COUNT, AUTOMATED 557 10^3/uL (150-450); RED CELL DISTRIBUTION WIDTH 13.7 % (11.5-14.5)
[2017-09-30] MEDS: SLF 3 ML SYR IV SCH ×3 (06:27→21:07)
[2017-09-30 06:31] LABS: ANION GAP 7 MEQ/L (8-16); BLOOD UREA NITROGEN 13 MG/DL (7-18); CARBON DIOXIDE LEVEL 27 MEQ/L (21-32); CHLORIDE LEVEL 102 MEQ/L (98-107); CREATININE FOR GFR 1.23 MG/DL (0.70-1.30); GLOMERULAR FILTRATION RATE > 60.0 (>42); GLUCOSE, FASTING 93 MG/DL (83-110); MAGNESIUM LEVEL 1.9 MG/DL (1.8-2.4); POTASSIUM SERUM 4.1 MEQ/L (3.5-5.1); SODIUM LEVEL 136 MEQ/L (136-145)
[2017-09-30] MEDS ORDERED: LIDOCAINE VISCOUS 2% SOLN 15ML UDC As Ordered ONE (07:16)
[2017-09-30] MEDS ORDERED: MIDAZOLAM INJ 2 MG/2 ML VIAL (J2250) As Ordered ONE (07:17)
[2017-09-30 07:18] LABS: ERYTHROCYTE SEDIMENTATION RATE 73 mm/hr (0-20)
[2017-09-30] MEDS ORDERED: fentaNYL 100 MCG/2 ML INJECTION (J3010) As Ordered ONE (07:18)
[2017-09-30] MEDS ORDERED: MIDAZOLAM INJ 2 MG/2 ML VIAL (J2250) IV ONE ×2 (08:06→08:09)
[2017-09-30] MEDS ORDERED: fentaNYL 100 MCG/2 ML INJECTION (J3010) IV ONE (08:08)
[2017-09-30] MEDS ORDERED: LIDOCAINE VISCOUS 2% SOLN 15ML UDC PO ONE (08:11)
[2017-09-30] MEDS ORDERED: D5W 500 ML IV ONE (08:12)
--- NOTE | 2017-09-30 08:20 | RO ---
DATE OF PROCEDURE: 09/30/2017 REFERRING PHYSICIAN: Dr. Garcia. INDICATION: Staph bacteremia with suspicion for endocarditis. BRIEF HISTORY: Mr. Espitia is a 77-year-old man who has multitude of medical problems including liver cirrhosis. He was admitted for symptoms suggestive of infection and grew two separate blood cultures positive for Methicillin-sensitive staphylococcus aureus (MSSA). Transthoracic echocardiogram did not reveal any convincing evidence for vegetations but at the recommendation of infectious disease service , transesophageal echocardiogram was recommended to rule out presence of vegetations. I met with the patient on several occasions prior to the procedure. Initially did not want to proceed immediately but eventually yesterday he signed appropriate consent and the procedure was accomplished this morning. PROCEDURE NOTE: The patient was taken to endoscopy suite in fasting condition. After appropriate time-out, the posterior pharynx was anesthetized using viscous lidocaine and Cetacaine spray. He was sedated using total 2 mg of IV Versed and 25 mcg of IV fentanyl. He was then positioned on the left side. Probe was introduced into esophagus and later stomach without significant difficulty. After appropriate images were obtained, it was withdrawn. There were no immediate complications and the patient tolerated the procedure well. FINDINGS: Both atria are severely enlarged. There is a "smoke" in left atrium suggestive of low flow state. Left atrial appendage is relatively small but appears to be free of thrombi. There is normal flow in both left-sided and right-sided pulmonary veins. Atrial septum is intact based on two-dimensional and color Doppler imaging. I did not perform injection of agitated saline. Mitral leaflets are thin and normally mobile. No apparent vegetations are seen. By color Doppler imaging there is approximately mild to moderate mitral insufficiency. Aortic valve is sclerotic. It has three cusps and normal mobility. No stenosis or insufficiency seen. No vegetations are seen. Tricuspid valve was relatively poorly visualized but appears normal with normal mobility. No vegetations are seen. There is trace tricuspid insufficiency based on color Doppler imaging. Unfortunately quality of signal was not sufficient to adequately estimate pulmonary artery pressure. Pulmonic valve was well visualized. There is no stenosis or insufficiency of the valve and no vegetations. Left ventricle is of normal systolic function. I estimate EF around 60%. Right ventricle does not appear enlarged and is normally contractile. There is no pericardial effusion. There is relatively small amount of atherosclerosis in the descending segment of thoracic aorta. CONCLUSION: 1. Normal LV systolic function. 2. Mild to moderate mitral insufficiency. 3. No further significant valvular disease. 4. No visualized vegetations. 5. "Smoke" in left atrium. 6. Severe biatrial enlargement. COMMENT: Subacute bacterial endocarditis (SBE) prophylaxis is not recommended. MTDD
[2017-09-30] MEDS: METOPROLOL TARTRATE 100 MG TAB PO SCH ×2 (08:48→21:06)
[2017-09-30] MEDS: FOLIC ACID 1 MG TAB PO SCH (08:48)
[2017-09-30] MEDS: amLODIPine 10 MG TAB PO SCH (08:49)
[2017-09-30] MEDS: LISINOPRIL 10 MG TAB PO SCH (08:49)
[2017-09-30] MEDS: MULTIVITAMINS/MINERALS THERAP 1 TAB PO SCH (08:49)
[2017-09-30] MEDS: THIAMINE 100 MG TAB PO SCH (08:49)
[2017-09-30] MEDS: DIGOXIN 0.125 MG TAB PO SCH (08:51)
[2017-09-30] MEDS: EUCERIN 120GM CREAM EXT SCH (08:52)
--- NOTE | 2017-09-30 12:19 | IPNPDOC ---
Subjective Date Seen The patient was seen on 09/30/17. Subjective Chief Complaint/HPI Patient seen and examined at the bedside. States that he had his PAULO procedure done this morning, denies any acute complaints at this time. Objective Physical Examination General Exam: Positive: Alert, Cooperative, No Acute Distress Eye Exam: Negative: Sclera icteric ENT Exam: Positive: Atraumatic, Mucous membr. moist/pink Neck Exam: Negative: JVD Chest Exam: Positive: Clear to auscultation, Normal air movement Heart Exam: Positive: Rate Normal, Normal S1, Normal S2 Abdomen Exam: Positive: Soft, Negative: Tenderness, Hepatospenomegaly Extremity Exam: Negative: Tenderness, Swelling Skin Exam: Negative: Rash, Breakdown Assessment /Plan Plan/VTE VTE Prophylaxis Ordered?: Yes Plan MSSA Bacteremia of Unclear Etiology Positive Blood Cultures x 2 noted from 09/18 Repeat Blood Cultures x 2 negative from 09/22 The patient has remained afebrile since 09/19, WBC wnl, CRP downtrending CXR, CT Abd with no acute findings 2D ECHO with no vegetation noted PAULO done on 09/30 with no vegetations visualized Will hold off obtaining MRI for diskitis work up at this time as the patient does not have any c/o of back pain, or signs/symptoms suggestive of diskitis Currently on IV Cefazolin ID on board--will follow up with their recommendations abx therapy moving forward Acute Metabolic Encephalopathy 2/2 Above, Resolved Atrial Fibrillation with RVR, resolved Rate Controlled--Cont Digoxin, Metoprolol Cont Xarelto for AC Peripheral vascular disease Arterial Doppler of the lower extremities noted The patient has been evaluated by vascular surgery, and has been advised to follow-up as an outpatient History of systolic congestive heart failure Currently appears euvolemic Continue lisinopril, metoprolol 2-D echocardiogram from this hospitalization noted PAULO with no evidence of systolic dysfunction on 09/30/17 History of alcohol abuse Continue thiamine and folic acid Hypertension, stable Continue lisinopril, metoprolol History of chronic liver disease and cirrhosis 2/2 Alcohol Abuse Liver function tests within normal limits here Continue outpatient follow-up DVT prophylaxis Already on anticoagulation Disposition--pending clinical improvement, will f/u with ID regarding Abx therapy moving forward. PT on board for functional optimization, patient will likely need sub-acute rehab. PFS on board. VS, I&O, 24H, Fishbone Vital Signs/I&O Vital Signs Date Time Temp Pulse Resp B/P (MAP) Pulse Ox O2 Delivery O2 Flow Rate FiO2 09/30/17 11:00 95.6 93 18 133/76 (95) 98 Room Air 09/30/17 07:55 2 I&O- Last 24 Hours up to 6 AM 10/01/17 06:00 Intake Total 360 ml Balance 360 ml Laboratory Data 24H LABS Laboratory Tests 2 09/30/17 06:01: Nucleated Red Blood Cells % (auto) 0.0, Erythrocyte Sedimentation Rate 73H, Anion Gap 7L, Glomerular Filtration Rate > 60.0, Blood Urea Nitrogen 13, Creatinine 1.23, Sodium Level 136, Potassium Level 4.1, Chloride Level 102, Carbon Dioxide Level 27, Calcium Level 9.0, Magnesium Level 1.9, C-Reactive Protein, Quantitative 4.52H CBC/BMP Laboratory Tests 09/30/17 06:01 Red Blood Count 3.98 L, Mean Corpuscular Volume 96.0, Mean Corpuscular Hemoglobin 31.7, Mean Corpuscular Hemoglobin Concent 33.0, Red Cell Distribution Width 13.7, Calcium Level 9.0 Microbiology Microbiology 09/22/17 Blood Culture - Final, Complete NO GROWTH AFTER 5 DAYS 09/22/17 Blood Culture - Final, Complete NO GROWTH AFTER 5 DAYS WILEY GALLO MD Sep 30, 2017 12:19
[2017-09-30] MEDS: RIVAROXABAN 15 MG TAB (XARELTO) PO SCH (17:10)
--- NOTE | 2017-09-30 17:17 | IPN ---
DATE: 09/30/2017 Mr. Espitia is eating his dinner. He has a great appetite. He states he dropped all his fruit cup on the floor and would like cleaned. He denies any headache. No back pain. No hip pain. No knee pains. He had his transesophageal echocardiogram done by Dr. Leon on September 30. Findings: Both atria are severely enlarged. No thrombi noted. No vegetations are seen. Ejection fraction about 60%. Mild to moderate mitral insufficiency. PHYSICAL EXAMINATION: Temperature is 95.6, pulse 93, respirations 18, blood pressure 133/76, oxygen saturation 98% on room air. HEART: Normal S1, S2 with systolic ejection murmur 1/6 at the left lower sternal border. LUNGS: Clear. ABDOMEN: Soft, nontender. No hepatosplenomegaly. EXTREMITIES: No edema. Knees: Full range of motion. Hip: Full range of motion. No back tenderness. LABORATORY DATA: White count is 9, hemoglobin 12.6, hematocrit 38.2, platelets 557. ESR 73. Sodium 136, potassium 4.1, chloride 102, bicarbonate 27, BUN 13, creatinine 1.23, glucose 93, calcium 9, magnesium 1.9, CRP 4.52, down from 5.5. IMPRESSION: Staphylococcus aureus sepsis. Methicillin-sensitive Staphylococcus aureus (MSSA) with positive cultures on September 18 and negative cultures on September 22. The patient had resolution of bacteremia within 4 days. He has no foreign bodies. No hip replacement, knee replacement, or pacemaker. The patient had defervesced and within 72 hours had negative transesophageal echo, and therefore the patient will be a candidate for 14 days of intravenous (IV) antibiotic from negative cultures. His first negative cultures were on September 22, and therefore his course of antibiotic would end on October 06. PLAN Continue IV cefazolin until October 06. The patient tolerating well.
[2017-10-01] MEDS: SLF 3 ML SYR IV SCH ×3 (00:11→21:12)
[2017-10-01 02:00] VITALS: BP 129/81
[2017-10-01 05:57] LABS: MEAN CORPUSCULAR HEMOGLOBIN 30.7 pg (27.0-33.0); MEAN CORPUSCULAR HGB CONC 32.2 g/dl (32.0-36.5); MEAN CORPUSCULAR VOLUME 95.4 fl (80.0-96.0); PLATELET COUNT, AUTOMATED 539 10^3/uL (150-450); RED CELL DISTRIBUTION WIDTH 13.6 % (11.5-14.5); WHITE BLOOD COUNT 9.9 10^3/uL (4.0-10.0)
[2017-10-01 06:00] VITALS: BP 129/77
[2017-10-01 06:14] LABS: ANION GAP 9 MEQ/L (8-16); BLOOD UREA NITROGEN 14 MG/DL (7-18); CARBON DIOXIDE LEVEL 25 MEQ/L (21-32); CHLORIDE LEVEL 104 MEQ/L (98-107); GLOMERULAR FILTRATION RATE > 60.0 (>42); GLUCOSE, FASTING 96 MG/DL (83-110); MAGNESIUM LEVEL 1.8 MG/DL (1.8-2.4); POTASSIUM SERUM 3.8 MEQ/L (3.5-5.1); SODIUM LEVEL 138 MEQ/L (136-145)
[2017-10-01] MEDS: MULTIVITAMINS/MINERALS THERAP 1 TAB PO SCH (09:30)
[2017-10-01] MEDS: LISINOPRIL 10 MG TAB PO SCH (09:30)
[2017-10-01] MEDS: amLODIPine 10 MG TAB PO SCH (09:32)
[2017-10-01] MEDS: DIGOXIN 0.125 MG TAB PO SCH (09:32)
[2017-10-01] MEDS: FOLIC ACID 1 MG TAB PO SCH (09:33)
[2017-10-01] MEDS: METOPROLOL TARTRATE 100 MG TAB PO SCH ×2 (09:33→21:12)
[2017-10-01] MEDS: THIAMINE 100 MG TAB PO SCH (09:33)
[2017-10-01] MEDS: EUCERIN 120GM CREAM EXT SCH (09:34)
[2017-10-01 10:00] VITALS: BP 121/63
--- NOTE | 2017-10-01 10:21 | IPNPDOC ---
Subjective Date Seen The patient was seen on 10/01/17. Subjective Chief Complaint/HPI Patient seen and examined at the bedside. Denies any acute complaints at this time. Objective Physical Examination General Exam: Positive: Alert, Cooperative, No Acute Distress Eye Exam: Negative: Sclera icteric ENT Exam: Positive: Atraumatic, Mucous membr. moist/pink Neck Exam: Negative: JVD Chest Exam: Positive: Clear to auscultation, Normal air movement Heart Exam: Positive: Rate Normal, Normal S1, Normal S2 Abdomen Exam: Positive: Soft, Negative: Tenderness, Hepatospenomegaly Extremity Exam: Negative: Tenderness, Swelling Skin Exam: Negative: Rash, Breakdown Assessment /Plan Plan/VTE VTE Prophylaxis Ordered?: Yes Plan MSSA Bacteremia of Unclear Etiology Positive Blood Cultures x 2 noted from 09/18 Repeat Blood Cultures x 2 negative from 09/22 The patient has remained afebrile since 09/19, WBC wnl, CRP downtrending CXR, CT Abd with no acute findings 2D ECHO with no vegetation noted PAULO done on 09/30 with no vegetations visualized Currently on IV Cefazolin until 10/06 for completion of 14 day antibiotic trial since last negative culture ID on board--appreciate input Acute Metabolic Encephalopathy 2/2 Above, Resolved Atrial Fibrillation with RVR, resolved Rate Controlled--Cont Digoxin, Metoprolol Cont Xarelto for AC Peripheral vascular disease Arterial Doppler of the lower extremities noted The patient has been evaluated by vascular surgery, and has been advised to follow-up as an outpatient History of systolic congestive heart failure Currently appears euvolemic Continue lisinopril, metoprolol 2-D echocardiogram from this hospitalization noted PAULO with no evidence of systolic dysfunction on 09/30/17 History of alcohol abuse Continue thiamine and folic acid Hypertension, stable Continue lisinopril, metoprolol History of chronic liver disease and cirrhosis 2/2 Alcohol Abuse Liver function tests within normal limits here Continue outpatient follow-up DVT prophylaxis Already on anticoagulation Disposition--pending completion of IV Abx therapy on 10/06. PT on board for functional optimization, patient will likely need sub-acute rehab. PFS on board. VS, I&O, 24H, Fishbone Vital Signs/I&O Vital Signs Date Time Temp Pulse Resp B/P (MAP) Pulse Ox O2 Delivery O2 Flow Rate FiO2 10/01/17 09:33 70 129/77 10/01/17 06:00 97.6 18 95 Room Air 09/30/17 07:55 2 Laboratory Data 24H LABS Laboratory Tests 2 10/01/17 05:40: Nucleated Red Blood Cells % (auto) 0.0, Anion Gap 9, Glomerular Filtration Rate > 60.0, Blood Urea Nitrogen 14, Creatinine 1.10, Sodium Level 138, Potassium Level 3.8, Chloride Level 104, Carbon Dioxide Level 25, Calcium Level 9.0, Magnesium Level 1.8 CBC/BMP Laboratory Tests 10/01/17 05:40 Red Blood Count 3.94 L, Mean Corpuscular Volume 95.4, Mean Corpuscular Hemoglobin 30.7, Mean Corpuscular Hemoglobin Concent 32.2, Red Cell Distribution Width 13.6, Calcium Level 9.0 Microbiology Microbiology 09/22/17 Blood Culture - Final, Complete NO GROWTH AFTER 5 DAYS 09/22/17 Blood Culture - Final, Complete NO GROWTH AFTER 5 DAYS WILEY GALLO MD Oct 01, 2017 10:21
[2017-10-01 14:00] VITALS: BP 129/65
--- NOTE | 2017-10-01 14:29 | IPN ---
DATE: 10/01/2017 Mr. Espitia seems to be doing well. He denies any nausea, vomiting, diarrhea, abdominal pain, fever or chills. Denies any back pain or joint pains. Transesophageal echocardiogram was negative for vegetation. Temperature is 99.6, pulse 90, respirations 20, blood pressure 121/63, oxygen saturation 98% on room air. Heart: Normal S1, S2, distant. Systolic ejection murmur 2/6. Lungs are clear. No wheezes, rales or rhonchi. Abdomen: Soft, nontender. No hepatosplenomegaly. Chest wall bilateral gynecomastia. Extremities: No clubbing, cyanosis or edema. Back: No lumbosacral tenderness. LABORATORY DATA: White count is 9.4, hemoglobin 12.1, hematocrit 37.6 and platelets 539. Sodium 138, potassium 3.8, chloride 104, bicarb 25, BUN 14, creatinine 1.1, glucose 96, calcium 9, magnesium 1.8. MEDICATIONS: Cefazolin 2 grams IV every 8 hours. IMPRESSION: Methicillin-sensitive Staphylococcus aureus (MSSA) bacteremia with no evident focus. The patient will need 2 weeks of IV antibiotics from negative cultures. End of therapy would be October 06. PLAN: Continue IV cefazolin till October 06. Please repeat CBC, sed rate and CRP next week.
[2017-10-01] MEDS: RIVAROXABAN 15 MG TAB (XARELTO) PO SCH (17:23)
[2017-10-01 18:00] VITALS: BP 136/72
[2017-10-01 22:00] VITALS: BP 156/87
[2017-10-02 06:00] VITALS: BP 158/88
[2017-10-02] MEDS: SLF 3 ML SYR IV SCH ×3 (06:00→21:53)
[2017-10-02 06:08] LABS: MEAN CORPUSCULAR HEMOGLOBIN 30.9 pg (27.0-33.0); MEAN CORPUSCULAR HGB CONC 32.4 g/dl (32.0-36.5); MEAN CORPUSCULAR VOLUME 95.5 fl (80.0-96.0); PLATELET COUNT, AUTOMATED 529 10^3/uL (150-450); RED CELL DISTRIBUTION WIDTH 13.5 % (11.5-14.5); WHITE BLOOD COUNT 10.5 10^3/uL (4.0-10.0)
[2017-10-02 06:51] LABS: ANION GAP 8 MEQ/L (8-16); BLOOD UREA NITROGEN 14 MG/DL (7-18); CALCIUM LEVEL 9.2 MG/DL (8.8-10.2); CARBON DIOXIDE LEVEL 25 MEQ/L (21-32); CHLORIDE LEVEL 104 MEQ/L (98-107); CREATININE FOR GFR 1.14 MG/DL (0.70-1.30); GLOMERULAR FILTRATION RATE > 60.0 (>42); GLUCOSE, FASTING 91 MG/DL (83-110); MAGNESIUM LEVEL 1.9 MG/DL (1.8-2.4); SODIUM LEVEL 137 MEQ/L (136-145)
[2017-10-02] MEDS: THIAMINE 100 MG TAB PO SCH (08:28)
[2017-10-02] MEDS: amLODIPine 10 MG TAB PO SCH (08:28)
[2017-10-02] MEDS: FOLIC ACID 1 MG TAB PO SCH (08:29)
[2017-10-02] MEDS: DIGOXIN 0.125 MG TAB PO SCH (08:29)
[2017-10-02] MEDS: MULTIVITAMINS/MINERALS THERAP 1 TAB PO SCH (08:29)
[2017-10-02] MEDS: LISINOPRIL 10 MG TAB PO SCH (08:29)
[2017-10-02] MEDS: METOPROLOL TARTRATE 100 MG TAB PO SCH ×2 (08:30→21:52)
[2017-10-02] MEDS: EUCERIN 120GM CREAM EXT SCH (08:30)
--- NOTE | 2017-10-02 13:57 | IPNPDOC ---
Subjective Date Seen The patient was seen on 10/02/17. Subjective Chief Complaint/HPI Patient is seen and examined at the bedside. Denies any acute complaints at this time. Objective Physical Examination General Exam: Positive: Alert, Cooperative, No Acute Distress Eye Exam: Negative: Sclera icteric ENT Exam: Positive: Atraumatic, Mucous membr. moist/pink Neck Exam: Negative: JVD Chest Exam: Positive: Clear to auscultation, Normal air movement Heart Exam: Positive: Rate Normal, Normal S1, Normal S2 Abdomen Exam: Positive: Soft, Negative: Tenderness, Hepatospenomegaly Extremity Exam: Negative: Tenderness, Swelling Skin Exam: Negative: Rash, Breakdown Assessment /Plan Plan/VTE VTE Prophylaxis Ordered?: Yes Plan MSSA Bacteremia of Unclear Etiology Positive Blood Cultures x 2 noted from 09/18 Repeat Blood Cultures x 2 negative from 09/22 The patient has remained afebrile since 09/19, WBC wnl, CRP downtrending CXR, CT Abd with no acute findings 2D ECHO with no vegetation noted PAULO done on 09/30 with no vegetations visualized Currently on IV Cefazolin until 10/06 for completion of 14 day antibiotic trial since last negative culture ID on board--appreciate input Acute Metabolic Encephalopathy 2/2 Above, Resolved Atrial Fibrillation with RVR, resolved Rate Controlled--Cont Digoxin, Metoprolol Cont Xarelto for AC Peripheral vascular disease Arterial Doppler of the lower extremities noted The patient has been evaluated by vascular surgery, and has been advised to follow-up as an outpatient History of systolic congestive heart failure Currently appears euvolemic Continue lisinopril, metoprolol 2-D echocardiogram from this hospitalization noted PAULO with no evidence of systolic dysfunction on 09/30/17 History of alcohol abuse Continue thiamine and folic acid Hypertension, stable Continue lisinopril, metoprolol History of chronic liver disease and cirrhosis 2/2 Alcohol Abuse Liver function tests within normal limits here Continue outpatient follow-up DVT prophylaxis Already on anticoagulation Disposition--pending completion of IV Abx therapy on 10/06. PT on board for functional optimization, patient will likely need sub-acute rehab. PFS on board. VS, I&O, 24H, Fishbone Vital Signs/I&O Vital Signs Date Time Temp Pulse Resp B/P (MAP) Pulse Ox O2 Delivery O2 Flow Rate FiO2 10/02/17 08:30 Room Air 10/02/17 08:29 90 10/02/17 08:28 150/80 10/02/17 06:00 97.3 16 99 09/30/17 07:55 2 I&O- Last 24 Hours up to 6 AM 10/03/17 06:00 Intake Total 410 ml Output Total 500 ml Balance -90 ml Laboratory Data 24H LABS Laboratory Tests 2 10/02/17 05:48: Nucleated Red Blood Cells % (auto) 0.0, Anion Gap 8, Glomerular Filtration Rate > 60.0, Blood Urea Nitrogen 14, Creatinine 1.14, Sodium Level 137, Potassium Level 4.0, Chloride Level 104, Carbon Dioxide Level 25, Calcium Level 9.2, Magnesium Level 1.9 CBC/BMP Laboratory Tests 10/02/17 05:48 Red Blood Count 4.01 L, Mean Corpuscular Volume 95.5, Mean Corpuscular Hemoglobin 30.9, Mean Corpuscular Hemoglobin Concent 32.4, Red Cell Distribution Width 13.5, Calcium Level 9.2 Microbiology Microbiology 09/22/17 Blood Culture - Final, Complete NO GROWTH AFTER 5 DAYS 09/22/17 Blood Culture - Final, Complete NO GROWTH AFTER 5 DAYS WILEY GALLO MD Oct 02, 2017 13:57
[2017-10-02 14:00] VITALS: BP_SYST 129; BP_SYST 138; BP_DIAS 72; BP_DIAS 84
[2017-10-02] MEDS: RIVAROXABAN 15 MG TAB (XARELTO) PO SCH (17:22)
[2017-10-02 22:00] VITALS: BP 135/80
[2017-10-03 06:00] VITALS: BP 127/77
[2017-10-03] MEDS: SLF 3 ML SYR IV SCH ×3 (06:00→20:04)
[2017-10-03 06:23] LABS: MEAN CORPUSCULAR HEMOGLOBIN 30.8 pg (27.0-33.0); MEAN CORPUSCULAR HGB CONC 32.4 g/dl (32.0-36.5); MEAN CORPUSCULAR VOLUME 94.9 fl (80.0-96.0); PLATELET COUNT, AUTOMATED 484 10^3/uL (150-450); RED CELL DISTRIBUTION WIDTH 13.5 % (11.5-14.5); WHITE BLOOD COUNT 8.3 10^3/uL (4.0-10.0)
[2017-10-03 06:50] LABS: ANION GAP 8 MEQ/L (8-16); BLOOD UREA NITROGEN 14 MG/DL (7-18); CARBON DIOXIDE LEVEL 25 MEQ/L (21-32); CHLORIDE LEVEL 105 MEQ/L (98-107); CREATININE FOR GFR 1.01 MG/DL (0.70-1.30); GLOMERULAR FILTRATION RATE > 60.0 (>42); GLUCOSE, FASTING 93 MG/DL (83-110); MAGNESIUM LEVEL 1.9 MG/DL (1.8-2.4); POTASSIUM SERUM 3.8 MEQ/L (3.5-5.1); SODIUM LEVEL 138 MEQ/L (136-145)
[2017-10-03] MEDS: LISINOPRIL 10 MG TAB PO SCH (08:18)
[2017-10-03] MEDS: THIAMINE 100 MG TAB PO SCH (08:19)
[2017-10-03] MEDS: METOPROLOL TARTRATE 100 MG TAB PO SCH ×2 (08:19→20:04)
[2017-10-03] MEDS: DIGOXIN 0.125 MG TAB PO SCH (08:19)
[2017-10-03] MEDS: MULTIVITAMINS/MINERALS THERAP 1 TAB PO SCH (08:19)
[2017-10-03] MEDS: amLODIPine 10 MG TAB PO SCH (08:19)
[2017-10-03] MEDS: FOLIC ACID 1 MG TAB PO SCH (08:19)
[2017-10-03] MEDS: EUCERIN 120GM CREAM EXT SCH (08:19)
--- NOTE | 2017-10-03 11:29 | IPNPDOC ---
Subjective Date Seen The patient was seen on 10/03/17. Subjective Chief Complaint/HPI She is seen and examined at the bedside. Denies any acute complaints at this time. Objective Physical Examination General Exam: Positive: Alert, Cooperative, No Acute Distress Eye Exam: Negative: Sclera icteric ENT Exam: Positive: Atraumatic, Mucous membr. moist/pink Neck Exam: Negative: JVD Chest Exam: Positive: Clear to auscultation, Normal air movement Heart Exam: Positive: Rate Normal, Normal S1, Normal S2 Abdomen Exam: Positive: Soft, Negative: Tenderness, Hepatospenomegaly Extremity Exam: Negative: Tenderness, Swelling Skin Exam: Negative: Rash, Breakdown Assessment /Plan Plan/VTE VTE Prophylaxis Ordered?: Yes Plan MSSA Bacteremia of Unclear Etiology Positive Blood Cultures x 2 noted from 09/18 Repeat Blood Cultures x 2 negative from 09/22 The patient has remained afebrile since 09/19, WBC wnl, CRP downtrending CXR, CT Abd with no acute findings 2D ECHO with no vegetation noted PAULO done on 09/30 with no vegetations visualized Currently on IV Cefazolin until 10/06 for completion of 14 day antibiotic trial since last negative culture ID on board--appreciate input Acute Metabolic Encephalopathy 2/2 Above, Resolved Atrial Fibrillation with RVR, resolved Rate Controlled--Cont Digoxin, Metoprolol Cont Xarelto for AC Peripheral vascular disease Arterial Doppler of the lower extremities noted The patient has been evaluated by vascular surgery, and has been advised to follow-up as an outpatient History of systolic congestive heart failure Currently appears euvolemic Continue lisinopril, metoprolol 2-D echocardiogram from this hospitalization noted PAULO with no evidence of systolic dysfunction on 09/30/17 History of alcohol abuse Continue thiamine and folic acid Hypertension, stable Continue lisinopril, metoprolol History of chronic liver disease and cirrhosis 2/2 Alcohol Abuse Liver function tests within normal limits here Continue outpatient follow-up DVT prophylaxis Already on anticoagulation Disposition--pending completion of IV Abx therapy on 10/06. PT on board for functional optimization, patient will likely need sub-acute rehab. PFS on board. VS, I&O, 24H, Fishbone Vital Signs/I&O Vital Signs Date Time Temp Pulse Resp B/P (MAP) Pulse Ox O2 Delivery O2 Flow Rate FiO2 10/03/17 08:19 89 127/77 10/03/17 08:00 Room Air 10/03/17 06:00 96.6 17 96 09/30/17 07:55 2 I&O- Last 24 Hours up to 6 AM 10/04/17 06:00 Intake Total 290 ml Output Total 250 ml Balance 40 ml Laboratory Data 24H LABS Laboratory Tests 2 10/03/17 06:03: Nucleated Red Blood Cells % (auto) 0.0, Anion Gap 8, Glomerular Filtration Rate > 60.0, Blood Urea Nitrogen 14, Creatinine 1.01, Sodium Level 138, Potassium Level 3.8, Chloride Level 105, Carbon Dioxide Level 25, Calcium Level 9.0, Magnesium Level 1.9 CBC/BMP Laboratory Tests 10/03/17 06:03 Red Blood Count 3.96 L, Mean Corpuscular Volume 94.9, Mean Corpuscular Hemoglobin 30.8, Mean Corpuscular Hemoglobin Concent 32.4, Red Cell Distribution Width 13.5, Calcium Level 9.0 WILEY GALLO MD Oct 03, 2017 11:29
[2017-10-03 14:00] VITALS: BP 126/62
[2017-10-03] MEDS: RIVAROXABAN 15 MG TAB (XARELTO) PO SCH (17:24)
[2017-10-03 20:00] VITALS: BP 150/72
[2017-10-03] MEDS: ACETAMINOPHEN 500 MG TAB PO PRN (20:03)
[2017-10-04] MEDS: SLF 3 ML SYR IV SCH ×3 (05:09→21:21)
[2017-10-04 06:00] VITALS: BP 151/86
[2017-10-04 06:02] LABS: MEAN CORPUSCULAR HEMOGLOBIN 30.9 pg (27.0-33.0); MEAN CORPUSCULAR HGB CONC 32.4 g/dl (32.0-36.5); MEAN CORPUSCULAR VOLUME 95.3 fl (80.0-96.0); PLATELET COUNT, AUTOMATED 466 10^3/uL (150-450); RED CELL DISTRIBUTION WIDTH 13.3 % (11.5-14.5); WHITE BLOOD COUNT 7.8 10^3/uL (4.0-10.0)
[2017-10-04] MEDS: METOPROLOL TARTRATE 100 MG TAB PO SCH ×2 (09:12→21:21)
[2017-10-04] MEDS: MULTIVITAMINS/MINERALS THERAP 1 TAB PO SCH (09:13)
[2017-10-04] MEDS: LISINOPRIL 10 MG TAB PO SCH (09:13)
[2017-10-04] MEDS: DIGOXIN 0.125 MG TAB PO SCH (09:15)
[2017-10-04] MEDS: EUCERIN 120GM CREAM EXT SCH (09:16)
[2017-10-04] MEDS: FOLIC ACID 1 MG TAB PO SCH (09:16)
[2017-10-04] MEDS: THIAMINE 100 MG TAB PO SCH (09:16)
[2017-10-04] MEDS: amLODIPine 10 MG TAB PO SCH (09:16)
--- NOTE | 2017-10-04 10:49 | IPNPDOC ---
Subjective Date Seen The patient was seen on 10/04/17. Subjective Chief Complaint/HPI Patient seen and examined at the bedside. States that he is feeling well and denies any acute complaints at this time as he was getting ready to work with physical therapy this morning. Objective Physical Examination General Exam: Positive: Alert, Cooperative, No Acute Distress Eye Exam: Negative: Sclera icteric ENT Exam: Positive: Atraumatic, Mucous membr. moist/pink Neck Exam: Negative: JVD Chest Exam: Positive: Clear to auscultation, Normal air movement Heart Exam: Positive: Rate Normal, Normal S1, Normal S2 Abdomen Exam: Positive: Soft, Negative: Tenderness, Hepatospenomegaly Extremity Exam: Negative: Tenderness, Swelling Skin Exam: Negative: Rash, Breakdown Assessment /Plan Plan/VTE VTE Prophylaxis Ordered?: Yes Plan MSSA Bacteremia of Unclear Etiology Positive Blood Cultures x 2 noted from 09/18 Repeat Blood Cultures x 2 negative from 09/22 The patient has remained afebrile since 09/19, WBC wnl, CRP downtrending CXR, CT Abd with no acute findings 2D ECHO with no vegetation noted PAULO done on 09/30 with no vegetations visualized Currently on IV Cefazolin until 10/06 for completion of 14 day antibiotic trial since last negative culture ID on board--appreciate input Acute Metabolic Encephalopathy 2/2 Above, Resolved Atrial Fibrillation with RVR, resolved Rate Controlled--Cont Digoxin, Metoprolol Cont Xarelto for AC Peripheral vascular disease Arterial Doppler of the lower extremities noted The patient has been evaluated by vascular surgery, and has been advised to follow-up as an outpatient History of systolic congestive heart failure Currently appears euvolemic Continue lisinopril, metoprolol 2-D echocardiogram from this hospitalization noted PAULO with no evidence of systolic dysfunction on 09/30/17 History of alcohol abuse Continue thiamine and folic acid Hypertension, stable Continue lisinopril, metoprolol History of chronic liver disease and cirrhosis 2/2 Alcohol Abuse Liver function tests within normal limits here Continue outpatient follow-up DVT prophylaxis Already on anticoagulation Disposition--pending completion of IV Abx therapy on 10/06. PT on board for functional optimization, patient will likely need sub-acute rehab. PFS on board. VS, I&O, 24H, Fishbone Vital Signs/I&O Vital Signs Date Time Temp Pulse Resp B/P (MAP) Pulse Ox O2 Delivery O2 Flow Rate FiO2 10/04/17 09:15 72 10/04/17 09:12 151/86 10/04/17 06:00 96.6 17 99 Room Air 09/30/17 07:55 2 I&O- Last 24 Hours up to 6 AM 10/05/17 06:00 Intake Total 360 ml Output Total 300 ml Balance 60 ml Laboratory Data 24H LABS Laboratory Tests 2 10/04/17 05:29: Nucleated Red Blood Cells % (auto) 0.0, C-Reactive Protein, Quantitative 3.06H CBC/BMP Laboratory Tests 10/04/17 05:29 Red Blood Count 4.08 L, Mean Corpuscular Volume 95.3, Mean Corpuscular Hemoglobin 30.9, Mean Corpuscular Hemoglobin Concent 32.4, Red Cell Distribution Width 13.3 WILEY GALLO MD Oct 04, 2017 10:48
[2017-10-04 10:54] LABS: ERYTHROCYTE SEDIMENTATION RATE 69 mm/hr (0-20)
[2017-10-04 14:00] VITALS: BP 136/83
[2017-10-04] MEDS: RIVAROXABAN 15 MG TAB (XARELTO) PO SCH (17:02)
[2017-10-04 22:00] VITALS: BP 140/74
[2017-10-05] MEDS: SLF 3 ML SYR IV SCH ×3 (05:21→20:50)
[2017-10-05 06:00] VITALS: BP 125/67
[2017-10-05 07:44] LABS: MEAN CORPUSCULAR HEMOGLOBIN 31.1 pg (27.0-33.0); MEAN CORPUSCULAR HGB CONC 32.9 g/dl (32.0-36.5); MEAN CORPUSCULAR VOLUME 94.6 fl (80.0-96.0); PLATELET COUNT, AUTOMATED 449 10^3/uL (150-450); RED CELL DISTRIBUTION WIDTH 13.3 % (11.5-14.5); WHITE BLOOD COUNT 8.1 10^3/uL (4.0-10.0)
[2017-10-05 08:07] LABS: ERYTHROCYTE SEDIMENTATION RATE 70 mm/hr (0-20)
[2017-10-05] MEDS: DIGOXIN 0.125 MG TAB PO SCH (10:33)
[2017-10-05] MEDS: LISINOPRIL 10 MG TAB PO SCH (10:33)
[2017-10-05] MEDS: MULTIVITAMINS/MINERALS THERAP 1 TAB PO SCH (10:33)
[2017-10-05] MEDS: amLODIPine 10 MG TAB PO SCH (10:34)
[2017-10-05] MEDS: THIAMINE 100 MG TAB PO SCH (10:34)
[2017-10-05] MEDS: METOPROLOL TARTRATE 100 MG TAB PO SCH ×2 (10:34→20:48)
[2017-10-05] MEDS: FOLIC ACID 1 MG TAB PO SCH (10:34)
[2017-10-05] MEDS: EUCERIN 120GM CREAM EXT SCH (10:35)
[2017-10-05 12:45] VITALS: BP 120/48
[2017-10-05 14:00] VITALS: BP 127/67
[2017-10-05] MEDS: RIVAROXABAN 15 MG TAB (XARELTO) PO SCH (16:50)
--- NOTE | 2017-10-05 21:27 | IPN ---
DATE: 10/05/2017 SUBJECTIVE: The patient is seen and examined in the room today. The patient does not have any acute complaints. The patient stated the wound at the right lower extremity is stable. The patient does not have any other wounds. Denies any fever or chills. Denies any chest pain or palpitations. OBJECTIVE: VITAL SIGNS: Temperature is 97.8, pulse is 84, respiratory rate 17, blood pressure is 125/67, pulse oximetry is 96% in room air. GENERAL: No sign of acute distress, alert and oriented times three. HEENT: Normocephalic, atraumatic. Extraocular motor grossly intact. CARDIOVASCULAR: Positive S1, S2, regular rate. LUNGS: Clear to auscultation bilaterally. ABDOMEN: Soft, nontender, nondistended. Bowel sounds present. EXTREMITIES: There is a circular wound located at the right lower extremity just below the knee laterally, covered with foam dressing. Foam dressing is dry and clean. No purulent discharge noted. No lower extremity edema. LABORATORY DATA: WBC 8.1, hemoglobin 12.8, hematocrit 38.9, platelet count is (cut off). ASSESSMENT AND PLAN: 1. Methicillin-sensitive Staphylococcus aureus (MSSA) bacteremia. Initial blood culture from 09/18/2017 was positive for MSSA. Repeat blood culture on 09/22/2017 remains negative. A 2-D echocardiogram was performed. No vegetation was noted. Transesophageal echocardiogram (PAULO) performed on 09/30/2017 still showed no vegetations. The patient is currently on IV cefazolin. Infectious disease specialist, Dr. Cornelius, has been assisting on the case. 2. Atrial fibrillation with rapid ventricular response (RVR). Rate is controlled. Continue on digoxin, metoprolol, and Xarelto. 3. Peripheral vascular disease. Recommend outpatient followup with vascular surgery. 4. History of systolic dysfunction. Currently, no sign of overload. The patient is on metoprolol and lisinopril. PAULO on 09/30/2017 showed no systolic dysfunction. 5. History of alcohol abuse, on thiamine, folic acid, and multivitamin. 6. Hypertension. Blood pressure in the satisfactory range. The patient is on Norvasc, lisinopril, metoprolol. 7. History of acute metabolic encephalopathy, secondary to MSSA bacteremia, resolved. 8. History of liver cirrhosis, secondary to alcohol abuse. Continue to monitor. 9. Deep vein thrombosis (DVT) prophylaxis, on Xarelto. DISPOSITION: The patient might benefit from subacute rehabilitation. Patient and family services (PFS) has been assisting on the case.
[2017-10-05 22:00] VITALS: BP 136/79
[2017-10-06] MEDS: ACETAMINOPHEN 500 MG TAB PO PRN (04:24)
[2017-10-06] MEDS: SLF 3 ML SYR IV SCH ×3 (05:10→21:27)
[2017-10-06 06:00] VITALS: BP 126/76
[2017-10-06] MEDS: MULTIVITAMINS/MINERALS THERAP 1 TAB PO SCH (08:32)
[2017-10-06] MEDS: FOLIC ACID 1 MG TAB PO SCH (08:33)
[2017-10-06] MEDS: amLODIPine 10 MG TAB PO SCH (08:35)
[2017-10-06] MEDS: DIGOXIN 0.125 MG TAB PO SCH (08:36)
[2017-10-06] MEDS: METOPROLOL TARTRATE 100 MG TAB PO SCH ×2 (08:37→20:21)
[2017-10-06] MEDS: LISINOPRIL 10 MG TAB PO SCH (08:38)
[2017-10-06] MEDS: EUCERIN 120GM CREAM EXT SCH (08:39)
[2017-10-06] MEDS: THIAMINE 100 MG TAB PO SCH (08:41)
[2017-10-06 14:00] VITALS: BP 112/50
[2017-10-06 14:37] LABS: BASO # 0.1 10^3/uL (0.0-0.2); BASO % 1.4 % (0.0-1.0); EOS # 0.2 10^3/uL (0.0-0.50); EOS % 2.2 % (0.0-3.0); IMMATURE GRANULOCYTE % 0.4 % (0-0); LYMPH # 1.1 10^3/uL (1.5-4.5); LYMPH % 14.3 % (24.0-44.0); MEAN CORPUSCULAR HEMOGLOBIN 31.1 pg (27.0-33.0); MEAN CORPUSCULAR HGB CONC 32.5 g/dl (32.0-36.5); MEAN CORPUSCULAR VOLUME 95.8 fl (80.0-96.0); MONO # 0.8 10^3/uL (0.0-0.8); MONO % 10.3 % (0.0-5.0); NEUTROPHILS # 5.5 10^3/uL (1.8-7.7); NEUTROPHILS % 71.4 % (36.0-66.0); PLATELET COUNT, AUTOMATED 478 10^3/uL (150-450); RED CELL DISTRIBUTION WIDTH 13.3 % (11.5-14.5); WHITE BLOOD COUNT 7.8 10^3/uL (4.0-10.0)
[2017-10-06 14:59] LABS: ANION GAP 7 MEQ/L (8-16); BLOOD UREA NITROGEN 15 MG/DL (7-18); CALCIUM LEVEL 9.3 MG/DL (8.8-10.2); CARBON DIOXIDE LEVEL 28 MEQ/L (21-32); CHLORIDE LEVEL 104 MEQ/L (98-107); CREATININE FOR GFR 1.03 MG/DL (0.70-1.30); GLOMERULAR FILTRATION RATE > 60.0 (>42); GLUCOSE, FASTING 100 MG/DL (83-110); MAGNESIUM LEVEL 1.9 MG/DL (1.8-2.4); POTASSIUM SERUM 4.6 MEQ/L (3.5-5.1); SODIUM LEVEL 139 MEQ/L (136-145)
--- NOTE | 2017-10-06 17:06 | IPNPDOC ---
Text Note Date of Service The patient was seen on 10/06/17. NOTE SUBJECTIVE: The patient is seen and examined in the room today. The patient does not have any acute complaint. The patient stated the wound at the right lower extremity is stable. Denies any chest pain or palpitations. OBJECTIVE: VITAL SIGNS: Listed below GENERAL: No sign of acute distress, alert and oriented times three. HEENT: Normocephalic, atraumatic. Extraocular motor grossly intact. CARDIOVASCULAR: Positive S1, S2, regular rate. LUNGS: Clear to auscultation bilaterally. ABDOMEN: Soft, nontender, nondistended. Bowel sounds present. EXTREMITIES: There is a circular wound located at the right lower extremity just below the knee laterally, covered with foam dressing. Foam dressing is dry and clean. No purulent discharge noted. No lower extremity edema. LABORATORY DATA: Listed Below ASSESSMENT AND PLAN: 1. Methicillin-sensitive Staphylococcus aureus (MSSA) bacteremia. Initial blood culture from 09/18/2017 was positive for MSSA. Repeat blood culture on 2016 remains negative. A 2-D echocardiogram was performed. No vegetation was noted. Transesophageal echocardiogram (PAULO) performed on 09/30/2017 still showed no vegetations. The patient is currently on IV cefazolin. Infectious disease specialist, Dr. Cornelius, has been assisting on the case. Today is last day of antibiotic treatment. 2. Atrial fibrillation with rapid ventricular response (RVR). Rate is controlled. Continue on digoxin, metoprolol, and Xarelto. 3. Peripheral vascular disease. Recommend outpatient followup with vascular surgery. 4. History of systolic dysfunction. Currently, no sign of overload. The patient is on metoprolol and lisinopril. PAULO on 09/30/2017 showed no systolic dysfunction. 5. History of alcohol abuse, on thiamine, folic acid, and multivitamin. 6. Hypertension. Blood pressure in the satisfactory range. The patient is on Norvasc, lisinopril, metoprolol. 7. History of acute metabolic encephalopathy, secondary to MSSA bacteremia, resolved. 8. History of liver cirrhosis, secondary to alcohol abuse. Continue to monitor. 9. Deep vein thrombosis (DVT) prophylaxis, on Xarelto. DISPOSITION: Patient is finishing antibiotic treatment today. The patient might benefit from subacute rehabilitation. Patient and family services (PFS) has been assisting on the case. CHAIM,Cortes, I+O VS, Eliuheena, I+O Laboratory Tests 10/06/17 13:59 Red Blood Count 4.27 L, Mean Corpuscular Volume 95.8, Mean Corpuscular Hemoglobin 31.1, Mean Corpuscular Hemoglobin Concent 32.5, Red Cell Distribution Width 13.3, Neutrophils (%) (Auto) 71.4 H, Lymphocytes (%) (Auto) 14.3 L, Monocytes (%) (Auto) 10.3 H, Eosinophils (%) (Auto) 2.2, Basophils (%) ( Auto) 1.4 H, Neutrophils # (Auto) 5.5, Lymphocytes # (Auto) 1.1 L, Monocytes # ( Auto) 0.8, Eosinophils # (Auto) 0.2, Basophils # (Auto) 0.1, Calcium Level 9.3 Vital Signs Date Time Temp Pulse Resp B/P (MAP) Pulse Ox O2 Delivery O2 Flow Rate FiO2 10/06/17 08:38 184/64 10/06/17 08:37 80 10/06/17 06:00 97.8 18 95 Room Air 09/30/17 07:55 2 I&O- Last 24 Hours up to 6 AM 10/07/17 06:00 Intake Total 410 ml Output Total 450 ml Balance -40 ml BRONSON HARDING DO Oct 06, 2017 13:42
[2017-10-06] MEDS: RIVAROXABAN 15 MG TAB (XARELTO) PO SCH (17:43)
[2017-10-06 22:00] VITALS: BP 142/84
[2017-10-07] MEDS: SLF 3 ML SYR IV SCH ×3 (05:49→21:12)
[2017-10-07 06:00] VITALS: BP 140/79
[2017-10-07 06:32] LABS: MEAN CORPUSCULAR HEMOGLOBIN 31.5 pg (27.0-33.0); MEAN CORPUSCULAR HGB CONC 33.3 g/dl (32.0-36.5); MEAN CORPUSCULAR VOLUME 94.6 fl (80.0-96.0); RED CELL DISTRIBUTION WIDTH 13.2 % (11.5-14.5); WHITE BLOOD COUNT 8.4 10^3/uL (4.0-10.0)
[2017-10-07 06:41] LABS: PLATELET COUNT, AUTOMATED 374 10^3/uL (150-450)
[2017-10-07 06:58] LABS: ANION GAP 6 MEQ/L (8-16); BLOOD UREA NITROGEN 14 MG/DL (7-18); CALCIUM LEVEL 8.8 MG/DL (8.8-10.2); CARBON DIOXIDE LEVEL 26 MEQ/L (21-32); CHLORIDE LEVEL 105 MEQ/L (98-107); CREATININE FOR GFR 1.01 MG/DL (0.70-1.30); GLOMERULAR FILTRATION RATE > 60.0 (>42); GLUCOSE, FASTING 96 MG/DL (83-110); MAGNESIUM LEVEL 1.8 MG/DL (1.8-2.4); POTASSIUM SERUM 3.8 MEQ/L (3.5-5.1); SODIUM LEVEL 137 MEQ/L (136-145)
[2017-10-07 09:30] VITALS: BP 122/70
[2017-10-07] MEDS: FOLIC ACID 1 MG TAB PO SCH (10:12)
[2017-10-07] MEDS: LISINOPRIL 10 MG TAB PO SCH (10:13)
[2017-10-07] MEDS: METOPROLOL TARTRATE 100 MG TAB PO SCH ×2 (10:14→20:17)
[2017-10-07] MEDS: THIAMINE 100 MG TAB PO SCH (10:14)
[2017-10-07] MEDS: MULTIVITAMINS/MINERALS THERAP 1 TAB PO SCH (10:14)
[2017-10-07] MEDS: DIGOXIN 0.125 MG TAB PO SCH (10:15)
[2017-10-07] MEDS: EUCERIN 120GM CREAM EXT SCH (10:15)
[2017-10-07] MEDS: amLODIPine 10 MG TAB PO SCH (10:15)
--- NOTE | 2017-10-07 14:47 | IPNPDOC ---
Text Note Date of Service The patient was seen on 10/07/17. NOTE SUBJECTIVE: The patient is seen and examined in the room today. The patient does not have any acute complaint. There is bed bug found in patient's room and patient is placed on isolation. Per patient, he is not aware of bed bug at home. OBJECTIVE: VITAL SIGNS: Listed below GENERAL: No sign of acute distress, alert and oriented times three. HEENT: Normocephalic, atraumatic. Extraocular motor grossly intact. CARDIOVASCULAR: Positive S1, S2, regular rate. LUNGS: Clear to auscultation bilaterally. ABDOMEN: Soft, nontender, nondistended. Bowel sounds present. EXTREMITIES: There is a circular wound located at the right lower extremity just below the knee laterally, covered with foam dressing. Foam dressing is dry and clean. No purulent discharge noted. No lower extremity edema. LABORATORY DATA: Listed Below ASSESSMENT AND PLAN: 1. Methicillin-sensitive Staphylococcus aureus (MSSA) bacteremia. Initial blood culture from 09/18/2017 was positive for MSSA. Repeat blood culture on 2016 remains negative. A 2-D echocardiogram was performed. No vegetation was noted. Transesophageal echocardiogram (PAULO) performed on 09/30/2017 still showed no vegetations. Infectious disease specialist, Dr. Cornelius, has been assisting on the case. Finished course of antibiotic; last day of cefazolin was 10/06/17. 2. Atrial fibrillation with rapid ventricular response (RVR). Rate is controlled. Continue on digoxin, metoprolol, and Xarelto. 3. Peripheral vascular disease. Recommend outpatient followup with vascular surgery. 4. History of systolic dysfunction. Currently, no sign of overload. The patient is on metoprolol and lisinopril. PAULO on 09/30/2017 showed no systolic dysfunction. 5. History of alcohol abuse, on thiamine, folic acid, and multivitamin. 6. Hypertension. Blood pressure in the satisfactory range. The patient is on Norvasc, lisinopril, metoprolol. 7. History of acute metabolic encephalopathy, secondary to MSSA bacteremia, resolved. 8. History of liver cirrhosis, secondary to alcohol abuse. Continue to monitor. 9. Deep vein thrombosis (DVT) prophylaxis, on Xarelto. DISPOSITION: Patient finished antibiotic treatment on 10/06/17 for MSSA bacteremia. The patient might benefit from subacute rehabilitation. Patient and family services (PFS) has been assisting on the case. VS,Cortes, I+O VS, Fishbone, I+O Laboratory Tests 10/07/17 06:25 Red Blood Count 3.87 L, Mean Corpuscular Volume 94.6, Mean Corpuscular Hemoglobin 31.5, Mean Corpuscular Hemoglobin Concent 33.3, Red Cell Distribution Width 13.2, Calcium Level 8.8 Vital Signs Date Time Temp Pulse Resp B/P (MAP) Pulse Ox O2 Delivery O2 Flow Rate FiO2 10/07/17 10:15 68 122/70 10/07/17 09:30 97.4 16 98 Room Air I&O- Last 24 Hours up to 6 AM 10/08/17 06:00 Intake Total 120 ml Output Total 200 ml Balance -80 ml BRONSON HARDING DO Oct 07, 2017 14:47
[2017-10-07] MEDS: RIVAROXABAN 15 MG TAB (XARELTO) PO SCH (17:29)
[2017-10-07 20:10] VITALS: BP 130/77
[2017-10-08 05:25] VITALS: BP 126/60
[2017-10-08] MEDS: SLF 3 ML SYR IV SCH ×2 (05:40→13:40)
[2017-10-08 06:34] LABS: MEAN CORPUSCULAR HEMOGLOBIN 30.5 pg (27.0-33.0); MEAN CORPUSCULAR HGB CONC 32.1 g/dl (32.0-36.5); MEAN CORPUSCULAR VOLUME 94.9 fl (80.0-96.0); PLATELET COUNT, AUTOMATED 369 10^3/uL (150-450); RED CELL DISTRIBUTION WIDTH 13.1 % (11.5-14.5); WHITE BLOOD COUNT 8.2 10^3/uL (4.0-10.0)
[2017-10-08 06:54] LABS: ANION GAP 7 MEQ/L (8-16); BLOOD UREA NITROGEN 15 MG/DL (7-18); CALCIUM LEVEL 8.9 MG/DL (8.8-10.2); CARBON DIOXIDE LEVEL 26 MEQ/L (21-32); CHLORIDE LEVEL 105 MEQ/L (98-107); CREATININE FOR GFR 1.05 MG/DL (0.70-1.30); GLOMERULAR FILTRATION RATE > 60.0 (>42); GLUCOSE, FASTING 106 MG/DL (83-110); MAGNESIUM LEVEL 1.8 MG/DL (1.8-2.4); POTASSIUM SERUM 3.8 MEQ/L (3.5-5.1); SODIUM LEVEL 138 MEQ/L (136-145)
[2017-10-08] MEDS: METOPROLOL TARTRATE 100 MG TAB PO SCH ×2 (08:00→21:53)
[2017-10-08] MEDS: ACETAMINOPHEN 500 MG TAB PO PRN (08:01)
[2017-10-08] MEDS: amLODIPine 10 MG TAB PO SCH (08:01)
[2017-10-08] MEDS: DIGOXIN 0.125 MG TAB PO SCH (08:01)
[2017-10-08] MEDS: MULTIVITAMINS/MINERALS THERAP 1 TAB PO SCH (08:02)
[2017-10-08] MEDS: THIAMINE 100 MG TAB PO SCH (08:02)
[2017-10-08] MEDS: FOLIC ACID 1 MG TAB PO SCH (08:02)
[2017-10-08] MEDS: LISINOPRIL 10 MG TAB PO SCH (08:02)
[2017-10-08] MEDS: EUCERIN 120GM CREAM EXT SCH (08:03)
--- NOTE | 2017-10-08 13:21 | IPNPDOC ---
Text Note Date of Service The patient was seen on 10/08/17. NOTE SUBJECTIVE: The patient is seen and examined in the room today. The patient does not have any acute complaint. Denies any fever or chill. OBJECTIVE: VITAL SIGNS: Listed below GENERAL: No sign of acute distress, alert and oriented times three. HEENT: Normocephalic, atraumatic. Extraocular motor grossly intact. CARDIOVASCULAR: Positive S1, S2, regular rate. LUNGS: Clear to auscultation bilaterally. ABDOMEN: Soft, nontender, nondistended. Bowel sounds present. EXTREMITIES: There is a circular wound located at the right lower extremity just below the knee laterally, covered with foam dressing. Foam dressing is dry and clean. No purulent discharge noted. No lower extremity edema. LABORATORY DATA: Listed Below ASSESSMENT AND PLAN: 1. Methicillin-sensitive Staphylococcus aureus (MSSA) bacteremia. Initial blood culture from 09/18/2017 was positive for MSSA. Repeat blood culture on 2016 remains negative. A 2-D echocardiogram was performed. No vegetation was noted. Transesophageal echocardiogram (PAULO) performed on 09/30/2017 still showed no vegetations. Finished course of antibiotic; last day of cefazolin was 10/06/17. 2. Atrial fibrillation with rapid ventricular response (RVR). Rate is controlled. Continue on digoxin, metoprolol, and Xarelto. 3. Peripheral vascular disease. Recommend outpatient followup with vascular surgery. 4. History of systolic dysfunction. Currently, no sign of overload. The patient is on metoprolol and lisinopril. PAULO on 09/30/2017 showed no systolic dysfunction. 5. History of alcohol abuse, on thiamine, folic acid, and multivitamin. 6. Hypertension. Blood pressure in the satisfactory range. The patient is on Norvasc, lisinopril, metoprolol. 7. History of acute metabolic encephalopathy, secondary to MSSA bacteremia, resolved. 8. History of liver cirrhosis, secondary to alcohol abuse. Continue to monitor. 9. Deep vein thrombosis (DVT) prophylaxis, on Xarelto. DISPOSITION: Patient finished antibiotic treatment on 10/06/17 for MSSA bacteremia. The patient might benefit from subacute rehabilitation. Patient and family services (PFS) has been assisting on the case. VS,Cortes, I+O VS, Cortes, I+O Laboratory Tests 10/08/17 06:09 Red Blood Count 3.94 L, Mean Corpuscular Volume 94.9, Mean Corpuscular Hemoglobin 30.5, Mean Corpuscular Hemoglobin Concent 32.1, Red Cell Distribution Width 13.1, Calcium Level 8.9 Vital Signs Date Time Temp Pulse Resp B/P (MAP) Pulse Ox O2 Delivery O2 Flow Rate FiO2 10/08/17 08:01 86 126/60 10/08/17 05:25 97.9 16 97 Room Air I&O- Last 24 Hours up to 6 AM 10/09/17 06:00 Intake Total 480 ml Output Total 500 ml Balance -20 ml BRONSON HARDING DO Oct 08, 2017 13:21
[2017-10-08 14:00] VITALS: BP 116/59
[2017-10-08] MEDS: RIVAROXABAN 15 MG TAB (XARELTO) PO SCH (17:41)
[2017-10-08 20:30] VITALS: BP 131/67
[2017-10-09 05:25] VITALS: BP_SYST 120; BP_SYST 156; BP_DIAS 62; BP_DIAS 97
[2017-10-09 06:08] LABS: MEAN CORPUSCULAR HEMOGLOBIN 31.2 pg (27.0-33.0); MEAN CORPUSCULAR HGB CONC 32.7 g/dl (32.0-36.5); MEAN CORPUSCULAR VOLUME 95.4 fl (80.0-96.0); PLATELET COUNT, AUTOMATED 352 10^3/uL (150-450); RED CELL DISTRIBUTION WIDTH 13.3 % (11.5-14.5); WHITE BLOOD COUNT 8.7 10^3/uL (4.0-10.0)
[2017-10-09 06:31] LABS: ANION GAP 8 MEQ/L (8-16); BLOOD UREA NITROGEN 15 MG/DL (7-18); CALCIUM LEVEL 8.9 MG/DL (8.8-10.2); CARBON DIOXIDE LEVEL 27 MEQ/L (21-32); CHLORIDE LEVEL 103 MEQ/L (98-107); CREATININE FOR GFR 1.03 MG/DL (0.70-1.30); GLOMERULAR FILTRATION RATE > 60.0 (>42); GLUCOSE, FASTING 108 MG/DL (83-110); MAGNESIUM LEVEL 1.8 MG/DL (1.8-2.4); POTASSIUM SERUM 3.9 MEQ/L (3.5-5.1); SODIUM LEVEL 138 MEQ/L (136-145)
[2017-10-09] MEDS: METOPROLOL TARTRATE 100 MG TAB PO SCH ×2 (09:39→22:04)
[2017-10-09] MEDS: LISINOPRIL 10 MG TAB PO SCH (09:40)
[2017-10-09] MEDS: DIGOXIN 0.125 MG TAB PO SCH (09:40)
[2017-10-09] MEDS: THIAMINE 100 MG TAB PO SCH (09:40)
[2017-10-09] MEDS: FOLIC ACID 1 MG TAB PO SCH (09:40)
[2017-10-09] MEDS: amLODIPine 10 MG TAB PO SCH (09:40)
[2017-10-09] MEDS: MULTIVITAMINS/MINERALS THERAP 1 TAB PO SCH (09:40)
[2017-10-09] MEDS: EUCERIN 120GM CREAM EXT SCH (09:41)
--- NOTE | 2017-10-09 12:22 | IPNPDOC ---
Text Note Date of Service The patient was seen on 10/09/17. NOTE SUBJECTIVE: The patient is seen and examined in the room today. The patient does not have any acute complaint. Per nursing staff, no event is reported. OBJECTIVE: VITAL SIGNS: Listed below GENERAL: No sign of acute distress, alert and oriented times three. HEENT: Normocephalic, atraumatic. Extraocular motor grossly intact. CARDIOVASCULAR: Positive S1, S2, regular rate. LUNGS: Clear to auscultation bilaterally. ABDOMEN: Soft, nontender, nondistended. Bowel sounds present. EXTREMITIES: There is a circular wound located at the right lower extremity just below the knee laterally, covered with foam dressing. Foam dressing is dry and clean. No purulent discharge noted. No lower extremity edema. LABORATORY DATA: Listed Below ASSESSMENT AND PLAN: 1. Methicillin-sensitive Staphylococcus aureus (MSSA) bacteremia. Initial blood culture from 09/18/2017 was positive for MSSA. Repeat blood culture on 2016 remains negative. A 2-D echocardiogram was performed. No vegetation was noted. Transesophageal echocardiogram (PAULO) performed on 09/30/2017 still showed no vegetations. Finished course of antibiotic; last day of cefazolin was 10/06/17. Patient is waiting for placement 2. Atrial fibrillation with rapid ventricular response (RVR). Rate is controlled. Continue on digoxin, metoprolol, and Xarelto. 3. Peripheral vascular disease. Recommend outpatient followup with vascular surgery. 4. History of systolic dysfunction. Currently, no sign of overload. The patient is on metoprolol and lisinopril. PAULO on 09/30/2017 showed no systolic dysfunction. 5. History of alcohol abuse, on thiamine, folic acid, and multivitamin. 6. Hypertension. Blood pressure in the satisfactory range. The patient is on Norvasc, lisinopril, metoprolol. 7. History of acute metabolic encephalopathy, secondary to MSSA bacteremia, resolved. 8. History of liver cirrhosis, secondary to alcohol abuse. Continue to monitor. 9. Deep vein thrombosis (DVT) prophylaxis, on Xarelto. DISPOSITION: Patient finished antibiotic treatment on 10/06/17 for MSSA bacteremia. The patient might benefit from subacute rehabilitation. Patient and family services (PFS) has been assisting on the case. VS,Cortes, I+O VS, Anoope, I+O Laboratory Tests 10/09/17 05:52 Red Blood Count 3.88 L, Mean Corpuscular Volume 95.4, Mean Corpuscular Hemoglobin 31.2, Mean Corpuscular Hemoglobin Concent 32.7, Red Cell Distribution Width 13.3, Calcium Level 8.9 Vital Signs Date Time Temp Pulse Resp B/P (MAP) Pulse Ox O2 Delivery O2 Flow Rate FiO2 10/09/17 09:40 74 120/62 10/09/17 05:25 97.2 16 100 Room Air I&O- Last 24 Hours up to 6 AM 10/10/17 06:00 Intake Total 240 ml Output Total 300 ml Balance -60 ml BRONSON HARDING DO Oct 09, 2017 12:22
[2017-10-09 14:00] VITALS: BP 133/78
[2017-10-09] MEDS: RIVAROXABAN 15 MG TAB (XARELTO) PO SCH (17:43)
[2017-10-09] MEDS: ACETAMINOPHEN 500 MG TAB PO PRN (18:33)
[2017-10-09 22:00] VITALS: BP 122/66
[2017-10-10 05:54] LABS: MEAN CORPUSCULAR HEMOGLOBIN 31.2 pg (27.0-33.0); MEAN CORPUSCULAR HGB CONC 33.3 g/dl (32.0-36.5); MEAN CORPUSCULAR VOLUME 93.5 fl (80.0-96.0); PLATELET COUNT, AUTOMATED 334 10^3/uL (150-450); RED CELL DISTRIBUTION WIDTH 13.1 % (11.5-14.5); WHITE BLOOD COUNT 7.9 10^3/uL (4.0-10.0)
[2017-10-10 06:00] VITALS: BP 127/63
[2017-10-10 06:17] LABS: ANION GAP 9 MEQ/L (8-16); BLOOD UREA NITROGEN 13 MG/DL (7-18); CALCIUM LEVEL 9.3 MG/DL (8.8-10.2); CARBON DIOXIDE LEVEL 26 MEQ/L (21-32); CHLORIDE LEVEL 104 MEQ/L (98-107); CREATININE FOR GFR 1.01 MG/DL (0.70-1.30); GLOMERULAR FILTRATION RATE > 60.0 (>42); GLUCOSE, FASTING 94 MG/DL (83-110); MAGNESIUM LEVEL 1.8 MG/DL (1.8-2.4); SODIUM LEVEL 139 MEQ/L (136-145)
[2017-10-10] MEDS: LISINOPRIL 10 MG TAB PO SCH (09:11)
[2017-10-10] MEDS: MULTIVITAMINS/MINERALS THERAP 1 TAB PO SCH (09:11)
[2017-10-10] MEDS: ACETAMINOPHEN 500 MG TAB PO PRN (09:11)
[2017-10-10] MEDS: FOLIC ACID 1 MG TAB PO SCH (09:12)
[2017-10-10] MEDS: amLODIPine 10 MG TAB PO SCH (09:12)
[2017-10-10] MEDS: THIAMINE 100 MG TAB PO SCH (09:12)
[2017-10-10] MEDS: DIGOXIN 0.125 MG TAB PO SCH (09:12)
[2017-10-10] MEDS: METOPROLOL TARTRATE 100 MG TAB PO SCH ×2 (09:13→21:50)
[2017-10-10] MEDS: EUCERIN 120GM CREAM EXT SCH (09:13)
--- NOTE | 2017-10-10 10:38 | IPNPDOC ---
Text Note Date of Service The patient was seen on 10/10/17. NOTE SUBJECTIVE: The patient is seen and examined in the room today. The patient does not have any acute complaint. Per nursing staff, no event is reported. OBJECTIVE: VITAL SIGNS: Listed below GENERAL: No sign of acute distress, alert and oriented times three. HEENT: Normocephalic, atraumatic. Extraocular motor grossly intact. CARDIOVASCULAR: Positive S1, S2, regular rate. LUNGS: Clear to auscultation bilaterally. ABDOMEN: Soft, nontender, nondistended. Bowel sounds present. EXTREMITIES: There is a circular wound located at the right lower extremity just below the knee laterally, covered with foam dressing. Foam dressing is dry and clean. No purulent discharge noted. No lower extremity edema. LABORATORY DATA: Listed Below ASSESSMENT AND PLAN: 1. Methicillin-sensitive Staphylococcus aureus (MSSA) bacteremia. Initial blood culture from 09/18/2017 was positive for MSSA. Repeat blood culture on 2016 remains negative. A 2-D echocardiogram was performed. No vegetation was noted. Transesophageal echocardiogram (PAULO) performed on 09/30/2017 still showed no vegetations. Finished course of antibiotic; last day of cefazolin was 10/06/17. 2. Atrial fibrillation with rapid ventricular response (RVR). Rate is controlled. Continue on digoxin, metoprolol, and Xarelto. 3. Peripheral vascular disease. Recommend outpatient followup with vascular surgery. 4. History of systolic dysfunction. Currently, no sign of overload. The patient is on metoprolol and lisinopril. PAULO on 09/30/2017 showed no systolic dysfunction. 5. History of alcohol abuse, on thiamine, folic acid, and multivitamin. 6. Hypertension. Blood pressure in the satisfactory range. The patient is on Norvasc, lisinopril, metoprolol. 7. History of acute metabolic encephalopathy, secondary to MSSA bacteremia, resolved. 8. History of liver cirrhosis, secondary to alcohol abuse. Continue to monitor. 9. Deep vein thrombosis (DVT) prophylaxis, on Xarelto. DISPOSITION: Patient finished antibiotic treatment on 10/06/17 for MSSA bacteremia. Continue working with physical therapy. The patient might benefit from subacute rehabilitation. Patient and family services (PFS) has been assisting on the case. VS,Cortes, I+O VS, Cortes, I+O Laboratory Tests 10/10/17 05:33 Red Blood Count 3.98 L, Mean Corpuscular Volume 93.5, Mean Corpuscular Hemoglobin 31.2, Mean Corpuscular Hemoglobin Concent 33.3, Red Cell Distribution Width 13.1, Calcium Level 9.3 Vital Signs Date Time Temp Pulse Resp B/P (MAP) Pulse Ox O2 Delivery O2 Flow Rate FiO2 10/10/17 09:12 87 10/10/17 06:00 97.6 18 127/63 (84) 98 Room Air I&O- Last 24 Hours up to 6 AM 10/11/17 06:00 Intake Total 360 ml Output Total 150 ml Balance 210 ml BRONSON HARDING DO Oct 10, 2017 10:38
[2017-10-10 14:00] VITALS: BP 127/70
[2017-10-10] MEDS: RIVAROXABAN 15 MG TAB (XARELTO) PO SCH (18:07)
[2017-10-10 22:00] VITALS: BP 114/61
[2017-10-11 06:00] VITALS: BP 112/74
[2017-10-11 06:32] LABS: MEAN CORPUSCULAR HEMOGLOBIN 31.1 pg (27.0-33.0); MEAN CORPUSCULAR HGB CONC 33.1 g/dl (32.0-36.5); MEAN CORPUSCULAR VOLUME 94.2 fl (80.0-96.0); PLATELET COUNT, AUTOMATED 317 10^3/uL (150-450); RED CELL DISTRIBUTION WIDTH 13.2 % (11.5-14.5); WHITE BLOOD COUNT 7.7 10^3/uL (4.0-10.0)
[2017-10-11 06:57] LABS: ANION GAP 9 MEQ/L (8-16); BLOOD UREA NITROGEN 17 MG/DL (7-18); CALCIUM LEVEL 8.8 MG/DL (8.8-10.2); CARBON DIOXIDE LEVEL 24 MEQ/L (21-32); CHLORIDE LEVEL 106 MEQ/L (98-107); CREATININE FOR GFR 1.03 MG/DL (0.70-1.30); GLOMERULAR FILTRATION RATE > 60.0 (>42); GLUCOSE, FASTING 87 MG/DL (83-110); MAGNESIUM LEVEL 1.7 MG/DL (1.8-2.4); POTASSIUM SERUM 4.2 MEQ/L (3.5-5.1); SODIUM LEVEL 139 MEQ/L (136-145)
[2017-10-11] MEDS: EUCERIN 120GM CREAM EXT SCH (09:25)
[2017-10-11] MEDS: METOPROLOL TARTRATE 100 MG TAB PO SCH ×2 (09:26→20:06)
[2017-10-11] MEDS: LISINOPRIL 10 MG TAB PO SCH (09:26)
[2017-10-11] MEDS: FOLIC ACID 1 MG TAB PO SCH (09:27)
[2017-10-11] MEDS: THIAMINE 100 MG TAB PO SCH (09:27)
[2017-10-11] MEDS: MULTIVITAMINS/MINERALS THERAP 1 TAB PO SCH (09:27)
[2017-10-11] MEDS: amLODIPine 10 MG TAB PO SCH (09:28)
[2017-10-11] MEDS: DIGOXIN 0.125 MG TAB PO SCH (09:28)
[2017-10-11] MEDS: ACETAMINOPHEN 500 MG TAB PO PRN (09:35)
--- NOTE | 2017-10-11 13:35 | IPNPDOC ---
Text Note Date of Service The patient was seen on 10/11/17. NOTE SUBJECTIVE: The patient is seen and examined in the room today. Patient is sitting comfortably in chair. The patient does not have any acute complaint. Per nursing staff, no event is reported. OBJECTIVE: VITAL SIGNS: Listed below GENERAL: No sign of acute distress, alert and oriented times three. HEENT: Normocephalic, atraumatic. Extraocular motor grossly intact. CARDIOVASCULAR: Positive S1, S2, regular rate. LUNGS: Clear to auscultation bilaterally. ABDOMEN: Soft, nontender, nondistended. Bowel sounds present. EXTREMITIES: There is a circular wound located at the right lower extremity just below the knee laterally, covered with foam dressing. Foam dressing is dry and clean. No purulent discharge noted. No lower extremity edema. LABORATORY DATA: Listed Below ASSESSMENT AND PLAN: 1. Methicillin-sensitive Staphylococcus aureus (MSSA) bacteremia. Initial blood culture from 09/18/2017 was positive for MSSA. Repeat blood culture on 2016 remains negative. A 2-D echocardiogram was performed. No vegetation was noted. Transesophageal echocardiogram (PAULO) performed on 09/30/2017 still showed no vegetations. Finished course of antibiotic; last day of cefazolin was 10/06/17. 2. Atrial fibrillation with rapid ventricular response (RVR). Rate is controlled. Continue on digoxin, metoprolol, and Xarelto. 3. Peripheral vascular disease. Recommend outpatient followup with vascular surgery. 4. History of systolic dysfunction. Currently, no sign of overload. The patient is on metoprolol and lisinopril. PAULO on 09/30/2017 showed no systolic dysfunction. 5. History of alcohol abuse, on thiamine, folic acid, and multivitamin. 6. Hypertension. Blood pressure in the satisfactory range. The patient is on Norvasc, lisinopril, metoprolol. 7. History of acute metabolic encephalopathy, secondary to MSSA bacteremia, resolved. 8. History of liver cirrhosis, secondary to alcohol abuse. Continue to monitor. 9. Deep vein thrombosis (DVT) prophylaxis, on Xarelto. DISPOSITION: Patient finished antibiotic treatment on 10/06/17 for MSSA bacteremia. Continue working with physical therapy. The patient might benefit from subacute rehabilitation. Patient and family services (PFS) has been assisting on the case. Change to ALC status on 10/11/17 VS,Cortes, I+O VS, Cortes, I+O Laboratory Tests 10/11/17 05:50 Red Blood Count 3.95 L, Mean Corpuscular Volume 94.2, Mean Corpuscular Hemoglobin 31.1, Mean Corpuscular Hemoglobin Concent 33.1, Red Cell Distribution Width 13.2, Calcium Level 8.8 Vital Signs Date Time Temp Pulse Resp B/P (MAP) Pulse Ox O2 Delivery O2 Flow Rate FiO2 10/11/17 09:28 80 112/74 10/11/17 08:00 18 10/11/17 06:00 98.0 96 Room Air I&O- Last 24 Hours up to 6 AM 10/12/17 06:00 Intake Total 600 ml Output Total 500 ml Balance 100 ml BRONSON HARDING DO Oct 11, 2017 13:35
[2017-10-11 14:00] VITALS: BP 128/73
[2017-10-11] MEDS: RIVAROXABAN 15 MG TAB (XARELTO) PO SCH (17:20)
[2017-10-11 22:00] VITALS: BP 123/71
[2017-10-12 06:00] VITALS: BP 130/68
[2017-10-12 06:38] LABS: MEAN CORPUSCULAR HEMOGLOBIN 31.2 pg (27.0-33.0); MEAN CORPUSCULAR HGB CONC 33.5 g/dl (32.0-36.5); PLATELET COUNT, AUTOMATED 301 10^3/uL (150-450); RED CELL DISTRIBUTION WIDTH 13.2 % (11.5-14.5); WHITE BLOOD COUNT 7.9 10^3/uL (4.0-10.0)
[2017-10-12 07:16] LABS: ANION GAP 7 MEQ/L (8-16); BLOOD UREA NITROGEN 16 MG/DL (7-18); CALCIUM LEVEL 8.9 MG/DL (8.8-10.2); CARBON DIOXIDE LEVEL 26 MEQ/L (21-32); CHLORIDE LEVEL 105 MEQ/L (98-107); CREATININE FOR GFR 0.95 MG/DL (0.70-1.30); GLOMERULAR FILTRATION RATE > 60.0 (>42); GLUCOSE, FASTING 90 MG/DL (83-110); MAGNESIUM LEVEL 1.9 MG/DL (1.8-2.4); SODIUM LEVEL 138 MEQ/L (136-145)
[2017-10-12] MEDS: traMADol 50 MG TAB PO SCH ×3 (09:00→21:10)
[2017-10-12] MEDS: THIAMINE 100 MG TAB PO SCH (09:30)
[2017-10-12] MEDS: DIGOXIN 0.125 MG TAB PO SCH (09:30)
[2017-10-12] MEDS: METOPROLOL TARTRATE 100 MG TAB PO SCH ×2 (09:31→21:10)
[2017-10-12] MEDS: MULTIVITAMINS/MINERALS THERAP 1 TAB PO SCH (09:31)
[2017-10-12] MEDS: LISINOPRIL 10 MG TAB PO SCH (09:31)
[2017-10-12] MEDS: FOLIC ACID 1 MG TAB PO SCH (09:31)
[2017-10-12] MEDS: amLODIPine 10 MG TAB PO SCH (09:31)
[2017-10-12] MEDS: EUCERIN 120GM CREAM EXT SCH (09:32)
[2017-10-12] MEDS: RIVAROXABAN 15 MG TAB (XARELTO) PO SCH (16:46)
[2017-10-13 05:57] LABS: MEAN CORPUSCULAR HEMOGLOBIN 30.5 pg (27.0-33.0); MEAN CORPUSCULAR HGB CONC 32.3 g/dl (32.0-36.5); MEAN CORPUSCULAR VOLUME 94.4 fl (80.0-96.0); PLATELET COUNT, AUTOMATED 290 10^3/uL (150-450); RED CELL DISTRIBUTION WIDTH 12.9 % (11.5-14.5); WHITE BLOOD COUNT 8.1 10^3/uL (4.0-10.0)
[2017-10-13 06:00] VITALS: BP 130/72
[2017-10-13 06:16] LABS: ANION GAP 7 MEQ/L (8-16); BLOOD UREA NITROGEN 16 MG/DL (7-18); CALCIUM LEVEL 8.8 MG/DL (8.8-10.2); CARBON DIOXIDE LEVEL 26 MEQ/L (21-32); CHLORIDE LEVEL 104 MEQ/L (98-107); GLOMERULAR FILTRATION RATE > 60.0 (>42); GLUCOSE, FASTING 87 MG/DL (83-110); MAGNESIUM LEVEL 1.9 MG/DL (1.8-2.4); POTASSIUM SERUM 3.9 MEQ/L (3.5-5.1); SODIUM LEVEL 137 MEQ/L (136-145)
[2017-10-13] MEDS: LISINOPRIL 10 MG TAB PO SCH (09:49)
[2017-10-13] MEDS: METOPROLOL TARTRATE 100 MG TAB PO SCH ×2 (09:50→20:09)
[2017-10-13] MEDS: amLODIPine 10 MG TAB PO SCH (09:51)
[2017-10-13] MEDS: FOLIC ACID 1 MG TAB PO SCH (09:51)
[2017-10-13] MEDS: MULTIVITAMINS/MINERALS THERAP 1 TAB PO SCH (09:51)
[2017-10-13] MEDS: traMADol 50 MG TAB PO SCH ×3 (09:51→20:09)
[2017-10-13] MEDS: DIGOXIN 0.125 MG TAB PO SCH (09:52)
[2017-10-13] MEDS: THIAMINE 100 MG TAB PO SCH (09:52)
[2017-10-13] MEDS: EUCERIN 120GM CREAM EXT SCH (09:52)
[2017-10-13] MEDS: RIVAROXABAN 15 MG TAB (XARELTO) PO SCH (17:31)
[2017-10-14 06:00] VITALS: BP 131/68
[2017-10-14] MEDS: THIAMINE 100 MG TAB PO SCH (09:19)
[2017-10-14] MEDS: amLODIPine 10 MG TAB PO SCH (09:20)
[2017-10-14] MEDS: DIGOXIN 0.125 MG TAB PO SCH (09:20)
[2017-10-14] MEDS: METOPROLOL TARTRATE 100 MG TAB PO SCH ×2 (09:21→21:02)
[2017-10-14] MEDS: FOLIC ACID 1 MG TAB PO SCH (09:21)
[2017-10-14] MEDS: LISINOPRIL 10 MG TAB PO SCH (09:22)
[2017-10-14] MEDS: traMADol 50 MG TAB PO SCH ×3 (09:22→21:00)
[2017-10-14] MEDS: EUCERIN 120GM CREAM EXT SCH (09:23)
[2017-10-14] MEDS: MULTIVITAMINS/MINERALS THERAP 1 TAB PO SCH (09:23)
[2017-10-14] MEDS: RIVAROXABAN 15 MG TAB (XARELTO) PO SCH (17:13)
[2017-10-15 05:15] VITALS: BP 125/65
[2017-10-15] MEDS: METOPROLOL TARTRATE 100 MG TAB PO SCH ×2 (09:27→20:48)
[2017-10-15] MEDS: LISINOPRIL 10 MG TAB PO SCH (09:27)
[2017-10-15] MEDS: amLODIPine 10 MG TAB PO SCH (09:28)
[2017-10-15] MEDS: MULTIVITAMINS/MINERALS THERAP 1 TAB PO SCH (09:28)
[2017-10-15] MEDS: FOLIC ACID 1 MG TAB PO SCH (09:28)
[2017-10-15] MEDS: traMADol 50 MG TAB PO SCH ×3 (09:28→20:50)
[2017-10-15] MEDS: THIAMINE 100 MG TAB PO SCH (09:28)
[2017-10-15] MEDS: EUCERIN 120GM CREAM EXT SCH (09:30)
[2017-10-15] MEDS: DIGOXIN 0.125 MG TAB PO SCH (09:30)
--- NOTE | 2017-10-15 16:02 | IPN ---
DATE: 10/15/2017 Mr. Espitia seems to be doing great. He is in a very good mood today. He has no complaints. No nausea, vomiting, diarrhea. No abdominal pain, fever, or chills. No back pain or hip pain currently. He states his hip only hurts when he has to walk with a walker. He has refused transfer to rehabilitation unit and room. LABORATORY DATA: White count is 8.1, hemoglobin 12, hematocrit 37.1, platelets 290. ESR 56. Sodium 137, potassium 3.9, chloride 104, bicarbonate 26, BUN 16, creatinine 1, glucose 87, calcium 8.8, magnesium 1.9. CRP is 2.76, down from 5.5. A blood culture ordered for today, on October 15, is pending. IMPRESSION: Methicillin-sensitive Staphylococcus aureus (MSSA) bacteremia with no obvious focus. The patient finished 2 weeks of intravenous (IV) antibiotics. End of therapy was October 06. His sedimentation rate and C-reactive protein (CRP) continued to decrease, although they are not back to normal. On exam today there is no obvious focus, and the patient is clinically doing great. PLAN: Infectious disease is signing off. Monitor for fever. Repeat blood cultures if the patient has a temperature.
[2017-10-15] MEDS: RIVAROXABAN 15 MG TAB (XARELTO) PO SCH (16:41)
[2017-10-16] MEDS: FOLIC ACID 1 MG TAB PO SCH (09:58)
[2017-10-16] MEDS: MULTIVITAMINS/MINERALS THERAP 1 TAB PO SCH (09:58)
[2017-10-16] MEDS: THIAMINE 100 MG TAB PO SCH (09:58)
[2017-10-16] MEDS: traMADol 50 MG TAB PO SCH ×3 (10:00→20:43)
[2017-10-16] MEDS: amLODIPine 10 MG TAB PO SCH (10:00)
[2017-10-16] MEDS: DIGOXIN 0.125 MG TAB PO SCH (10:01)
[2017-10-16] MEDS: LISINOPRIL 10 MG TAB PO SCH (10:01)
[2017-10-16] MEDS: METOPROLOL TARTRATE 100 MG TAB PO SCH ×2 (10:02→20:43)
[2017-10-16] MEDS: EUCERIN 120GM CREAM EXT SCH (10:02)
[2017-10-16] MEDS: RIVAROXABAN 15 MG TAB (XARELTO) PO SCH (17:05)
[2017-10-17 06:00] VITALS: BP 123/67
[2017-10-17] MEDS: THIAMINE 100 MG TAB PO SCH (09:23)
[2017-10-17] MEDS: FOLIC ACID 1 MG TAB PO SCH (09:24)
[2017-10-17] MEDS: MULTIVITAMINS/MINERALS THERAP 1 TAB PO SCH (09:24)
[2017-10-17] MEDS: traMADol 50 MG TAB PO SCH ×3 (09:24→20:13)
[2017-10-17] MEDS: LISINOPRIL 10 MG TAB PO SCH (09:25)
[2017-10-17] MEDS: amLODIPine 10 MG TAB PO SCH (09:25)
[2017-10-17] MEDS: EUCERIN 120GM CREAM EXT SCH (09:26)
[2017-10-17] MEDS: METOPROLOL TARTRATE 100 MG TAB PO SCH ×2 (09:26→20:11)
[2017-10-17] MEDS: DIGOXIN 0.125 MG TAB PO SCH (09:26)
--- NOTE | 2017-10-17 11:39 | IPNPDOC ---
Text Note Date of Service The patient was seen on 10/17/17. NOTE SUBJECTIVE: The patient is seen and examined in the room . Patient is sitting comfortably in chair. The patient does not have any acute complaint. Per nursing staff, no event is reported. OBJECTIVE: VITAL SIGNS: Listed below GENERAL: No sign of acute distress, alert and oriented times three. HEENT: Normocephalic, atraumatic. Extraocular motor grossly intact. CARDIOVASCULAR: Positive S1, S2, regular rate. LUNGS: Clear to auscultation bilaterally. ABDOMEN: Soft, nontender, nondistended. Bowel sounds present. EXTREMITIES: There is a circular wound located at the right lower extremity just below the knee laterally, covered with foam dressing. Foam dressing is dry and clean. No purulent discharge noted. No lower extremity edema. LABORATORY DATA: Listed Below ASSESSMENT AND PLAN: 1. Methicillin-sensitive Staphylococcus aureus (MSSA) bacteremia with Sepsis of undetermined source. Initial blood culture from 09/18/2017 was positive for MSSA. Repeat blood culture on 2016 remains negative. A 2-D echocardiogram was performed. No vegetation was noted. Transesophageal echocardiogram (PAULO) performed on 09/30/2017 still showed no vegetations. Finished course of antibiotic; last day of cefazolin was 10/06/17. repeat Blood culture on 10/15/17 remains negative. 2. Atrial fibrillation with rapid ventricular response (RVR). Rate is controlled. Continue on digoxin, metoprolol, and Xarelto. 3. Peripheral vascular disease. Recommend outpatient followup with vascular surgery. Also has left popliteal cyst. 4. History of systolic dysfunction. Currently, no sign of overload. The patient is on metoprolol and lisinopril. PAULO on 09/30/2017 showed no systolic dysfunction. 5. History of alcohol abuse, on thiamine, folic acid, and multivitamin. 6. Hypertension. Blood pressure in the satisfactory range. The patient is on Norvasc, lisinopril, metoprolol. 7. History of acute metabolic encephalopathy, secondary to MSSA bacteremia and sepsis resolved. esr remains unchanged but c rp continues to improve. 8. History of liver cirrhosis, secondary to alcohol abuse. Continue to monitor. 9. Deep vein thrombosis (DVT) prophylaxis, on Xarelto. 10. Generalized deconditioning and unstable gait: Continues to work with PT . will need to go to subacute rehab. DISPOSITION: Changed to ALC status on 10/11/17 VS,Fishbone, I+O VS, Fishbone, I+O Vital Signs Date Time Temp Pulse Resp B/P (MAP) Pulse Ox O2 Delivery O2 Flow Rate FiO2 10/17/17 09:26 76 123/67 10/17/17 09:24 17 10/17/17 06:00 98.0 93 Room Air I&O- Last 24 Hours up to 6 AM 10/18/17 06:00 Intake Total 560 ml Output Total 300 ml Balance 260 ml BRUCE ADRIAN MD Oct 17, 2017 11:39
[2017-10-17] MEDS: RIVAROXABAN 15 MG TAB (XARELTO) PO SCH (17:05)
[2017-10-18 06:00] VITALS: BP 123/64
[2017-10-18] MEDS: MULTIVITAMINS/MINERALS THERAP 1 TAB PO SCH (09:32)
[2017-10-18] MEDS: DIGOXIN 0.125 MG TAB PO SCH (09:32)
[2017-10-18] MEDS: THIAMINE 100 MG TAB PO SCH (09:33)
[2017-10-18] MEDS: traMADol 50 MG TAB PO SCH ×3 (09:33→20:13)
[2017-10-18] MEDS: amLODIPine 10 MG TAB PO SCH (09:33)
[2017-10-18] MEDS: FOLIC ACID 1 MG TAB PO SCH (09:33)
[2017-10-18] MEDS: EUCERIN 120GM CREAM EXT SCH (09:34)
[2017-10-18] MEDS: LISINOPRIL 10 MG TAB PO SCH (09:34)
[2017-10-18] MEDS: METOPROLOL TARTRATE 100 MG TAB PO SCH ×2 (09:34→20:14)
[2017-10-18] MEDS: RIVAROXABAN 15 MG TAB (XARELTO) PO SCH (17:01)
[2017-10-19 06:00] VITALS: BP 119/62
[2017-10-19] MEDS: FOLIC ACID 1 MG TAB PO SCH (09:38)
[2017-10-19] MEDS: MULTIVITAMINS/MINERALS THERAP 1 TAB PO SCH (09:38)
[2017-10-19] MEDS: THIAMINE 100 MG TAB PO SCH (09:38)
[2017-10-19] MEDS: LISINOPRIL 10 MG TAB PO SCH (09:39)
[2017-10-19] MEDS: amLODIPine 10 MG TAB PO SCH (09:40)
[2017-10-19] MEDS: DIGOXIN 0.125 MG TAB PO SCH (09:41)
[2017-10-19] MEDS: METOPROLOL TARTRATE 100 MG TAB PO SCH ×2 (09:42→20:34)
[2017-10-19] MEDS: traMADol 50 MG TAB PO SCH ×3 (10:35→20:35)
[2017-10-19] MEDS: EUCERIN 120GM CREAM EXT SCH (10:35)
[2017-10-19 11:36] VITALS: BP 120/60
[2017-10-19 14:00] VITALS: BP 138/76
[2017-10-19] MEDS: RIVAROXABAN 15 MG TAB (XARELTO) PO SCH (17:44)
[2017-10-20 06:00] VITALS: BP 124/64
[2017-10-20] MEDS: MULTIVITAMINS/MINERALS THERAP 1 TAB PO SCH (09:09)
[2017-10-20] MEDS: FOLIC ACID 1 MG TAB PO SCH (09:09)
[2017-10-20] MEDS: DIGOXIN 0.125 MG TAB PO SCH (09:12)
[2017-10-20] MEDS: METOPROLOL TARTRATE 100 MG TAB PO SCH ×2 (09:14→20:29)
[2017-10-20] MEDS: EUCERIN 120GM CREAM EXT SCH (09:16)
[2017-10-20] MEDS: traMADol 50 MG TAB PO SCH ×3 (09:16→20:31)
[2017-10-20] MEDS: LISINOPRIL 10 MG TAB PO SCH (09:22)
[2017-10-20] MEDS: THIAMINE 100 MG TAB PO SCH (09:23)
[2017-10-20] MEDS: amLODIPine 10 MG TAB PO SCH (09:23)
[2017-10-20] MEDS: RIVAROXABAN 15 MG TAB (XARELTO) PO SCH (16:46)
[2017-10-20 22:00] VITALS: BP 130/70
[2017-10-21 06:00] VITALS: BP 123/65
[2017-10-21] MEDS: FOLIC ACID 1 MG TAB PO SCH (08:56)
[2017-10-21] MEDS: MULTIVITAMINS/MINERALS THERAP 1 TAB PO SCH (08:56)
[2017-10-21] MEDS: LISINOPRIL 10 MG TAB PO SCH (08:56)
[2017-10-21] MEDS: THIAMINE 100 MG TAB PO SCH (08:56)
[2017-10-21] MEDS: DIGOXIN 0.125 MG TAB PO SCH (08:56)
[2017-10-21] MEDS: amLODIPine 10 MG TAB PO SCH (08:56)
[2017-10-21] MEDS: METOPROLOL TARTRATE 100 MG TAB PO SCH ×2 (08:57→21:18)
[2017-10-21] MEDS: traMADol 50 MG TAB PO SCH ×3 (08:58→21:18)
[2017-10-21] MEDS: EUCERIN 120GM CREAM EXT SCH (08:59)
[2017-10-21] MEDS: RIVAROXABAN 15 MG TAB (XARELTO) PO SCH (16:55)
[2017-10-22 05:25] VITALS: BP 141/78
[2017-10-22] MEDS: THIAMINE 100 MG TAB PO SCH (08:32)
[2017-10-22] MEDS: MULTIVITAMINS/MINERALS THERAP 1 TAB PO SCH (08:32)
[2017-10-22] MEDS: FOLIC ACID 1 MG TAB PO SCH (08:32)
[2017-10-22] MEDS: DIGOXIN 0.125 MG TAB PO SCH (08:32)
[2017-10-22] MEDS: METOPROLOL TARTRATE 100 MG TAB PO SCH ×2 (08:33→20:25)
[2017-10-22] MEDS: amLODIPine 10 MG TAB PO SCH (08:33)
[2017-10-22] MEDS: LISINOPRIL 10 MG TAB PO SCH (08:34)
[2017-10-22] MEDS: traMADol 50 MG TAB PO SCH ×3 (08:34→20:26)
[2017-10-22] MEDS: EUCERIN 120GM CREAM EXT SCH (08:35)
[2017-10-22] MEDS: RIVAROXABAN 15 MG TAB (XARELTO) PO SCH (18:44)
[2017-10-23 06:00] VITALS: BP 125/66
[2017-10-23] MEDS: FOLIC ACID 1 MG TAB PO SCH (09:27)
[2017-10-23] MEDS: THIAMINE 100 MG TAB PO SCH (09:27)
[2017-10-23] MEDS: amLODIPine 10 MG TAB PO SCH (09:28)
[2017-10-23] MEDS: DIGOXIN 0.125 MG TAB PO SCH (09:28)
[2017-10-23] MEDS: LISINOPRIL 10 MG TAB PO SCH (09:29)
[2017-10-23] MEDS: METOPROLOL TARTRATE 100 MG TAB PO SCH ×2 (09:29→20:30)
[2017-10-23] MEDS: MULTIVITAMINS/MINERALS THERAP 1 TAB PO SCH (09:30)
[2017-10-23] MEDS: traMADol 50 MG TAB PO SCH ×3 (09:30→20:29)
[2017-10-23] MEDS: EUCERIN 120GM CREAM EXT SCH (09:31)
--- NOTE | 2017-10-23 10:55 | IPNPDOC ---
Text Note Date of Service The patient was seen on 10/23/17. NOTE SUBJECTIVE: The patient is seen and examined in the room . Patient islying comfortably in bed. The patient does not have any acute complaint. Per nursing staff, no event is reported. He says the right hip pain is better with the current pain medication. OBJECTIVE: VITAL SIGNS: Listed below GENERAL: No sign of acute distress, alert and oriented times three. HEENT: Normocephalic, atraumatic. Extraocular motor grossly intact. CARDIOVASCULAR: Positive S1, S2, regular rate. LUNGS: Clear to auscultation bilaterally. ABDOMEN: Soft, nontender, nondistended. Bowel sounds present. EXTREMITIES: There is a circular wound located at the right lower extremity just below the knee laterally, covered with foam dressing. Foam dressing is dry and clean. No purulent discharge noted. No lower extremity edema. LABORATORY DATA: Listed Below ASSESSMENT AND PLAN: 1. Methicillin-sensitive Staphylococcus aureus (MSSA) bacteremia with Sepsis of undetermined source. Initial blood culture from 09/18/2017 was positive for MSSA. Repeat blood culture on 2016 negative. A 2-D echocardiogram was performed. No vegetation was noted. Transesophageal echocardiogram (PAULO) performed on 09/30/2017 still showed no vegetations. Finished course of antibiotic; last day of cefazolin was 10/06/17. repeat Blood culture on 10/15/17 remains negative. 2. Atrial fibrillation with rapid ventricular response (RVR). Rate is controlled. Continue on digoxin, metoprolol, and Xarelto. 3. Peripheral vascular disease. Recommend outpatient followup with vascular surgery. Also has left popliteal cyst. 4. History of systolic dysfunction. Currently, no sign of overload. The patient is on metoprolol and lisinopril. PAULO on 09/30/2017 showed no systolic dysfunction. 5. History of alcohol abuse, on thiamine, folic acid, and multivitamin. 6. Hypertension. Blood pressure in the satisfactory range. The patient is on Norvasc, lisinopril, metoprolol. 7. History of acute metabolic encephalopathy, secondary to MSSA bacteremia and sepsis resolved. esr remains unchanged but c rp continues to improve. 8. History of liver cirrhosis, secondary to alcohol abuse. Continue to monitor. 9. Deep vein thrombosis (DVT) prophylaxis, on Xarelto. 10. Generalized deconditioning and unstable gait with chronic hip pain: Has right hip advanced osteoarthritis. pain controlled with tramadol. Continues to work with PT . will need to go to subacute rehab. DISPOSITION: Changed to ALC status on 10/11/17 VS,Cortes, I+O VS, Cortes, I+O Vital Signs Date Time Temp Pulse Resp B/P (MAP) Pulse Ox O2 Delivery O2 Flow Rate FiO2 10/23/17 09:30 18 Room Air 10/23/17 09:28 67 132/68 10/23/17 06:00 98.3 99 10/19/17 20:35 2.0 BRUCE ADRIAN MD Oct 23, 2017 10:55
[2017-10-23 11:32] LABS: BASO # 0.1 10^3/uL (0.0-0.2); BASO % 0.8 % (0.0-1.0); EOS # 0.2 10^3/uL (0.0-0.50); IMMATURE GRANULOCYTE % 0.3 % (0-0); LYMPH # 1.1 10^3/uL (1.5-4.5); LYMPH % 14.5 % (24.0-44.0); MEAN CORPUSCULAR HEMOGLOBIN 30.9 pg (27.0-33.0); MEAN CORPUSCULAR HGB CONC 33.6 g/dl (32.0-36.5); MEAN CORPUSCULAR VOLUME 91.9 fl (80.0-96.0); MONO # 0.6 10^3/uL (0.0-0.8); MONO % 7.5 % (0.0-5.0); NEUTROPHILS # 5.9 10^3/uL (1.8-7.7); NEUTROPHILS % 74.9 % (36.0-66.0); PLATELET COUNT, AUTOMATED 296 10^3/uL (150-450); RED CELL DISTRIBUTION WIDTH 13.1 % (11.5-14.5); WHITE BLOOD COUNT 7.9 10^3/uL (4.0-10.0)
[2017-10-23 11:51] LABS: ANION GAP 5 MEQ/L (8-16); BLOOD UREA NITROGEN 13 MG/DL (7-18); CALCIUM LEVEL 9.2 MG/DL (8.8-10.2); CARBON DIOXIDE LEVEL 28 MEQ/L (21-32); CHLORIDE LEVEL 102 MEQ/L (98-107); GLOMERULAR FILTRATION RATE > 60.0 (>42); GLUCOSE, FASTING 129 MG/DL (83-110); POTASSIUM SERUM 4.3 MEQ/L (3.5-5.1); SODIUM LEVEL 135 MEQ/L (136-145)
[2017-10-23 11:57] LABS: ERYTHROCYTE SEDIMENTATION RATE 54 mm/hr (0-20)
[2017-10-23] MEDS: RIVAROXABAN 15 MG TAB (XARELTO) PO SCH (18:03)
[2017-10-24 06:00] VITALS: BP 122/70
[2017-10-24] MEDS: LISINOPRIL 10 MG TAB PO SCH (09:39)
[2017-10-24] MEDS: DIGOXIN 0.125 MG TAB PO SCH (09:39)
[2017-10-24] MEDS: amLODIPine 10 MG TAB PO SCH (09:39)
[2017-10-24] MEDS: FOLIC ACID 1 MG TAB PO SCH (09:40)
[2017-10-24] MEDS: THIAMINE 100 MG TAB PO SCH (09:40)
[2017-10-24] MEDS: MULTIVITAMINS/MINERALS THERAP 1 TAB PO SCH (09:40)
[2017-10-24] MEDS: traMADol 50 MG TAB PO SCH ×3 (09:41→21:00)
[2017-10-24] MEDS: METOPROLOL TARTRATE 100 MG TAB PO SCH ×2 (09:41→21:00)
[2017-10-24] MEDS: EUCERIN 120GM CREAM EXT SCH (09:42)
[2017-10-24] MEDS: RIVAROXABAN 15 MG TAB (XARELTO) PO SCH (17:15)
[2017-10-24 20:14] VITALS: BP 113/62
[2017-10-24] MEDS ORDERED: METOPROLOL TART 25 MG TABLET PO ONE (23:30)
[2017-10-25 06:00] VITALS: BP 110/64
[2017-10-25] MEDS: EUCERIN 120GM CREAM EXT SCH (09:00)
[2017-10-25] MEDS: MULTIVITAMINS/MINERALS THERAP 1 TAB PO SCH (09:12)
[2017-10-25] MEDS: THIAMINE 100 MG TAB PO SCH (09:13)
[2017-10-25] MEDS: DIGOXIN 0.125 MG TAB PO SCH (09:13)
[2017-10-25] MEDS: amLODIPine 10 MG TAB PO SCH (09:14)
[2017-10-25] MEDS: METOPROLOL TARTRATE 100 MG TAB PO SCH (09:14)
[2017-10-25] MEDS: FOLIC ACID 1 MG TAB PO SCH (09:14)
[2017-10-25 12:17] VITALS: BP 110/64
[2017-10-25] MEDS: LISINOPRIL 10 MG TAB PO SCH (12:17)
[2017-10-25] MEDS: traMADol 50 MG TAB PO SCH ×2 (12:18→16:24)
[2017-10-25] MEDS ORDERED: TRAM50TA2 PO (13:26)
[2017-10-25] MEDS ORDERED: AMLO10TA2 PO (17:54)
[2017-10-25] MEDS ORDERED: LISI10TA4 PO (17:54)
[2017-10-25] MEDS ORDERED: XARE15TA PO (17:54)
[2017-10-25] MEDS ORDERED: METO100T5 PO (17:54)
[2017-10-25] MEDS ORDERED: DIGO0.12 PO (18:00)
[2017-10-25] MEDS ORDERED: FOLI1TAB4 PO (18:00)
[2017-10-25] MEDS ORDERED: ACET-683 PO (18:00)
[2017-10-25] MEDS ORDERED: THIA100TA PO (18:00)
--- NOTE | 2017-10-26 22:10 | DSES ---
DATE OF ADMISSION: 09/17/2017 DATE OF DISCHARGE: 10/25/2017 PRIMARY CARE PROVIDER: Soraida Root MD DISCHARGE DIAGNOSES: 1. Methicillin-sensitive Staphylococcus aureus (MSSA) bacteremia with sepsis from undetermined source. Finished course of antibiotics on 10/06/2017. 2. Atrial fibrillation with rapid ventricular response. 3. Peripheral vascular disease. Recommend outpatient followup. 4. 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 5. Severe pulmonary hypertension with right-sided heart failure. 6. Systolic congestive heart failure. 7. Metabolic encephalopathy due to sepsis and alcohol intoxication, resolved. 8. Hypertension. 9. Alcohol abuse. 10. Cirrhosis of liver as in ultrasound in April 2017, with features of portal hypertension due to alcohol abuse without any signs of decompensation. 11. 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 Unstable gait and chronic right hip pain due to advanced osteoarthritis. DISCHARGE MEDICATIONS: - amlodipine 10 mg by mouth daily - digoxin 0.125 mg by mouth daily - folic acid 1 mg by mouth daily - lisinopril 30 mg by mouth daily - metoprolol tartrate 150 mg by mouth twice a day - Xarelto 15 mg by mouth daily - thiamine 100 mg by mouth daily - tramadol 50 mg by mouth three times a day - Tylenol 1000 mg by mouth three times a day as needed for pain HOSPITAL COURSE: This is a 77-year-old alcoholic male admitted to the hospital following falls at home and unable to stand up on his feet. He had been crawling around in the house for about a week prior to presentation to the emergency room. Patient was complaining of severe right hip pain. On presentation to the emergency room, he was noted to be in atrial fibrillation with rapid ventricular response. Patient had stopped taking all his medications for at least 2 months prior to admission. Patient was also noted to have diminished pulses in the dorsalis pedis artery. Patient was also in alcohol withdrawal on admission and was admitted to the hospitalist service and was started on treatment for atrial fibrillation. Patient was seen by Dr. Castillo and was initially started on heparin drip. Subsequently, he underwent lower extremity arterial study, which showed probable stenosis in the distal anterior and posterior tibial artery on the left and there was severe stenosis in the right anterior tibial artery. However, as there were no signs of acute ischemia going on, our vascular surgeon recommended outpatient followup. Patient had leukocytosis on admission, so blood cultures were sent, which came back positive for MSSA bacteremia, two out of two bottles. Patient was started on cefazolin. However, no source of bacteremia could be identified. Patient had an echocardiogram which was negative for any vegetations. He also had CT scan of the abdomen and pelvis. Chest x-rays did not reveal any source of infection. Patient completed 4 weeks of IV cefazolin. Followup blood cultures after completion of antibiotics were negative. Patient was followed by Dr. Cornelius in the hospital. Patient had also undergone transesophageal echocardiogram (PAULO) in the hospital as a workup of MSSA bacteremia, however did not show any vegetations. Patient's heart rate was controlled with metoprolol and digoxin, though he continued to remain in chronic atrial fibrillation. He was also restarted on his Xarelto. On initial presentation, patient was encephalopathic from his infection and alcohol withdrawal, which his mental status gradually improved and his encephalopathy resolved. Patient, however, continued to complain of severe right hip pain which was impending with his mobilization and working with physical therapy, so he was started on tramadol, which seemed to help with the pain. Patient had radiological studies of the hip joint, which showed advanced osteoarthritis, did not reveal any acute fracture or dislocation. With better control of pain, he was able to participate better with physical therapy. Though patient has radiological features of cirrhosis of liver as by ultrasound of the liver as well as CT angio of the chest which shows portal hypertension, but clinically patient does not have any features of decompensated cirrhosis. His ammonia was also normal and his liver function tests (LFTs) were within normal limits. Patient did not have any issues with his liver during hospitalization. As he could not be cleared by physical therapy, he was moved into alternate level of care (ALC) status on 10/11/2017. Since then, patient has been regularly working out with physical therapy, as well as with nurses several times over the day. Initially, physical therapy had recommended subacute rehabilitation, however with continued physical therapy (PT) his gait and balance improved. Subsequently, he was able to be cleared by physical therapy on 10/25/2017, for discharge home with home services and 24/7 care. To assist during stair negotiation, patient was also recommended to continue home PT. This was explained to patient and patient's girlfriend Soraida who was understanding of all the recommendations. On the day of discharge, patient did not have any complaints, his vital signs were stable, and functionally he was cleared by physical therapy for discharge home. PHYSICAL EXAMINATION: VITAL SIGNS: Temperature 98, pulse 64, respiratory rate 17, blood pressure 110/64, pulse oximetry 96% in room air. GENERAL: Patient awake, alert, oriented times three, sitting up in bed in no acute distress. HEENT: Normocephalic, atraumatic. Moist mucous membranes. Anicteric eyes. CHEST: Clear to auscultation. CARDIOVASCULAR: S1, S2, irregular. No rub, murmur, or gallop. ABDOMEN: Soft, nontender. Bowel sounds present. EXTREMITIES: No edema. LABORATORY DATA: From 10/23/2017, showed WBC of 7.9, hemoglobin 12.2, platelets 296, ESR 54, sodium 135, potassium 4.3, chloride 102, bicarbonate 28, BUN 13, creatinine 1.1, glucose 129, calcium 9.2, CRP 1.44. Blood cultures from 10/15/2017, negative. Two sets of blood cultures from 09/22/2017, was also negative. Echocardiogram showed left ventricular ejection fraction mildly reduced at 60%, severe pulmonary hypertension at 58 cm of water, with signs of right ventricular failure. There was markedly dilated left atrium, aortic valvular sclerosis without stenosis and only stress insufficiency, moderate mitral annular calcification without inflow tract obstruction, moderate mitral insufficiency. Extremity arterial study showed bilaterally there is moderate calcific plaque extending through the common femoral arteries, superficial, femoral and popliteal arteries into the calf arteries on the right. There was elevated peak systolic velocity in the proximal right anterior tibial artery with what appears to be severe stenosis at that location. On the left, there appears to be probable stenosis of the distal anterior and posterior tibial arteries. There was also a left popliteal cyst. DISPOSITION: Patient is discharged home with home services and 24/ supervision from family, especially during stair negotiation. DISCHARGE INSTRUCTIONS: Patient to followup with primary care provider in 1 week. Patient to followup with Dr. Castillo, vascular surgeon, in 3-4 weeks. Diet as tolerated. Patient strictly advised to absolutely refrain from drinking alcohol. Activity to continue as per direction of home PT. NIK
== END 2017-10-25 16:20 | disposition home or self-care (01) | DRG 871 ==
LOC: M ED 12:05 → M ED INP 17:11 → M PCU 20:28 → M ED INP 20:32 → M PCU 21:20 → M MSPAV 09-22 18:59
PROVIDERS: ADMIT Internal Medicine; ATTEND Internal Medicine Nephrology
DX: A41.9 Sepsis, unspecified organism (principal); G93.41 Metabolic encephalopathy; I50.22 Chronic systolic (congestive) heart failure; F10.239 Alcohol dependence with withdrawal, unspecified; I47.2 Ventricular tachycardia; I13.0 Hypertensive heart and chronic kidney disease with heart failure and stage 1 through stage 4 chronic kidney disease, or unspecified chronic kidney disease; B95.61 Methicillin susceptible Staphylococcus aureus infection as the cause of diseases classified elsewhere; S40.011A Contusion of right shoulder, initial encounter; I48.91 Unspecified atrial fibrillation; M25.551 Pain in right hip; I50.812 Chronic right heart failure; I70.203 Unspecified atherosclerosis of native arteries of extremities, bilateral legs; K70.30 Alcoholic cirrhosis of liver without ascites; R29.6 Repeated falls; I73.9 Peripheral vascular disease, unspecified; N18.3 Chronic kidney disease, stage 3 (moderate); Z79.01 Long term (current) use of anticoagulants; Z79.899 Other long term (current) drug therapy; Z91.19 Patient's noncompliance with other medical treatment and regimen; W01.0XXA Fall on same level from slipping, tripping and stumbling without subsequent striking against object, initial encounter; Y92.019 Unspecified place in single-family (private) house as the place of occurrence of the external cause; Y93.01 Activity, walking, marching and hiking; Y99.9 Unspecified external cause status